=== PATIENT | female | born 1995 | race Caucasian/White ===

== ENCOUNTER 2018-09-17 11:45 | Outpatient (CLI) | payer MEDICAID, SELFPAY ==
[2018-09-17 12:19] VITALS: BMI 40.7
[2018-09-17 12:29] LABS: Hematocrit 31.1 % (37-47); Hemoglobin 10.3 g/dl (12.0-15.0); Mean Corp Hgb Conc 33.1 g/gl (32-36); Mean Corpuscular Hgb 26.1 pg (27.0-32.0); Mean Corpuscular Volume 78.7 fL (81-99); Mean Platelet Vol. 9.1 fl (6.2-12.0); Platelet Count 222 K/mm3 (150-450); RBC Distribution Width CV 14.4 % (11.6-14.6); RBC Distribution Width SD 41.4 fl (35.1-43.9); Red Blood Count 3.95 M/mm3 (4.2-5.4); White Blood Count 8.6 K/mm3 (4.4-11.0)
[2018-09-17 12:32] LABS: Scan Indicated on CBC? Y/N NO
[2018-09-17 12:41] LABS: AST(SGOT) 12 U/L (15-37); Alanine Aminotransfer ALT/SGPT 13 U/L (13-56); Creatinine, Serum 0.48 mg/dL (0.55-1.02); EST Glomerular Filtration Rate 171 mL/min (>60); Est Glom Filt Rate - Afr Amer 207 mL/min (>60); Estimated Creatinine Clearance 158.75 ml/min; Uric Acid 4.6 mg/dL (2.6-6.0)
[2018-09-17 13:00] LABS: Partial Thromboplast Time 27.6 Seconds (24.1-36.2); Prothrombin Time (Protime)PT. 13.2 SECONDS (11.7-14.9)
[2018-09-17 13:09] LABS: Protein, Urine (Random) 30.4 mg/dL (<11.9); Protein:Creat Ratio 129 mg/g CRE (0-200)
--- NOTE | 2018-09-17 13:09 | OB.TRI.HP_ITS ---
- Problem List (1) Headache Status: Acute History of Present Illness Date of Service: 09/17/18 Was patient seen by the physician?: Yes Reason For Visit: R/O PIH Date of Service: 09/17/18 Final CINDI: 10/12/18 Final CINDI Source: US <20 weeks Gestational age: 36 Weeks and 3 Days History of Present Illness: Is a 23-year-old 001 at 36 weeks gestation who presents from the office with a mild headache. She said the headache started yesterday. She says the headache is bilateral and posterior, and mild. She rates it a 2-3 out of 10. She denies a history of chronic headaches. She denies vision changes, right upper quadrant pain, epigastric pain, nausea, vomiting. She came into the office today and her blood pressure was 120/83. Denies contractions, bleeding, loss of fluid. Good movement. Allergies Sulfa (Sulfonamide Antibiotics) Allergy (Intermediate, Verified 10/23/16 07:36) Hives strawberry Allergy (Verified 10/22/16 14:45) Hives - Pertinent Past Medical History Medical History: Past Medical History (Last Updated 09/17/18 @ 20:33 by Darline Avila DO) Anemia History of depression Laboratory Studies: Laboratory Tests 09/17/18 09/17/18 09/17/18 Range/Units 12:10 12:10 12:10 WBC 8.6 (4.4-11.0) K/mm3 RBC 3.95 L (4.2-5.4) M/mm3 Hgb 10.3 L (12.0-15.0) g/dl Hct 31.1 L (37-47) % MCV 78.7 L (81-99) fL MCH 26.1 L (27.0-32.0) pg MCHC 33.1 (32-36) g/gl RDW 14.4 (11.6-14.6) % RDW Differential 41.4 (35.1-43.9) fl Plt Count 222 (150-450) K/mm3 MPV 9.1 (6.2-12.0) fl PT 13.2 (11.7-14.9) SECONDS INR 1.0 APTT 27.6 (24.1-36.2) Seconds Creatinine 0.48 L (0.55-1.02) mg/dL Estim Creat Clear Calc 158.75 ml/min Est GFR (MDRD) Af Amer 207 (>60) mL/min Est GFR (MDRD) Non-Af 171 (>60) mL/min Uric Acid 4.6 (2.6-6.0) mg/dL AST 12 L (15-37) U/L ALT 13 (13-56) U/L Review of Systems Eyes: Denies: Blurred vision, Double vision HEENT: Reports: Head Aches Gastrointestinal: Denies: Abdominal Pain, Nausea, Vomiting Neurological: Denies: Blurred vision, Double vision Physical Exam General: No apparent distress, Well developed, Well nourished HEENT: Atraumatic Lungs: - - No increased resp effort Abdomen: Soft, Non Tender, Gravid, - - No RUQ tenderness or epigastric te nderness Extremities:: No edema Neurological: Deep Tendon Reflexes 2+/4 and Symmetrical, Neuro grossly intact NST - FHR Rate Baby A FHR Category:: Category I Uterine Activity:: No regular ctx's Impression/Plan 36 wk gestation with mild NORMAN - Pre- labs WNL, p/c ratio normal - Had 1 mild range SBP 141, otherwise BP's normotensive - To collect 24 hr urine protein - Has appointment in 2 days. To keep that appointment for recheck of BP - Discussed pre-eclampsia signs and symptoms. Precautions given or when to call and come back in
--- OUTSIDE RECORDS SUMMARY | 2018-11-12 20:46 | XMS RPT_ITS ---
:1995 Author Organization [place] Support Name Relationship Address Phone ELIA MALLORY Unavailable [address] + [place] [address] MCDONALDS Unavailable [address] + [place] [address] CATARINA PIZANO Unavailable [address] + [place] [address] ELIA MALLORY Unavailable [address] + [place] [address] MCDONALDS Unavailable [address] + [place] [address] NICOLE PIZANOSON Unavailable [address] + [place] [address] ELIA MALLORY Unavailable [address] + [place] [address] MCDONALDS Unavailable [address] + [place] [address] CATARINA PIZANO Unavailable [address] + [place] [address] ELIA MALLORY Unavailable [address] + [place] [address] MCDONALDS Unavailable [address] + [place] [address] NICOLE PIZANOSON Unavailable [address] + [place] [address] MEDARDO PIZANO Unavailable Unavailable + MEDARDO PIZANO Unavailable Unavailable + TRI PIZANO Unavailable [address] + [place] [address] HARINDER, MEDARDO Unavailable Unavailable + HARINDER, MEDARDO Unavailable Unavailable + HARINDER, OLYVER Unavailable [address] + [place] [address] HARINDER, MEDARDO Unavailable Unavailable + HARINDER, MEDARDO Unavailable Unavailable + HARINDER, OLYVER Unavailable [address] + [place] [address] HARINDER, MEDARDO Unavailable Unavailable + HARINDER, MEDARDO Unavailable Unavailable + HARINDER, OLYVER Unavailable [address] + [place] [address] Care Team Providers Name Role Phone SHERYL COHN, CESAR Hwang Attending Unavailable PHYSICIAN, NONE Primary Care Unavailable DAVID COHN, FERMÍN Prajapati Attending Unavailable PHYSICIAN, NONE Primary Care Unavailable ROSI FIGUEROA, DR. NOELLE Sanderson Attending Unavailable PHYSICIAN, NONE Primary Care Unavailable LEANNE SEGOVIA MD Attending Unavailable PHYSICIAN, NONE Primary Care Unavailable CHRISTEN MANCILLA Attending Unavailable ARAMIS SALOMON Attending Unavailable LAURENT, KARMON Referring Unavailable LAURENT, KARMON Referring Unavailable LAURENT, KARMON Attending Unavailable LAURENT, KARMON Referring Unavailable TROY SULTANA Attending Unavailable LAURENT, KARMON Referring Unavailable LEYLA STAPLESTHIA (CNM) Attending Unavailable LAURENT, KARMON Referring Unavailable DENNIS SHER (EDUCATION TECHNICIAN) Attending Unavailable LAURENT, KARMON Referring Unavailable LEYLA STAPLESTHIA (CNM) Attending Unavailable CASSIE EDGE Attending Unavailable JOSE ARMANDO KRAMER (CNM) Attending Unavailable WISWELL, ROSALINDA Referring Unavailable GABRIEL KRAMERSSICA (CNM) Attending Unavailable WILLIAMS, JOSE ARMANDO (CNM) Attending Unavailable KRAMER, JOSE ARMANDO (CNM) Attending Unavailable WISWELL, ROSALINDA Attending Unavailable WILLIAMS, JOSE RAMANDO (CNM) Attending Unavailable WISWELL, ROSALINDA Attending Unavailable Brittany Barajas Attending Unavailable Brittany Barajas Referring Unavailable Gabriel Kramerssica Attending Unavailable Williams, Jose Armando Referring Unavailable Nely Emmanuel Primary Care Unavailable Teodora Kramerica Attending Unavailable Williams, Jose Armando Referring Unavailable Wiswell, Rosalinda Attending Unavailable Wiswell, Rosalinda Referring Unavailable PROBLEMS PROBLEMS DATE TYPE CONDITION / CODE ATTENDING STATUS SOURCE 09/24/2018 Unknown O26.893 - Other Jose Armando Kramer Active [facility] conditions, third Repository trimester / O26.893(ICD-10) 08/30/2018 Active 31 weeks gestation NA Active [facility] of / [facility] Z3A.31(ICD-10) Repository 04/03/2018 Active Encounter for NA Active [facility] supervision of [facility] [place] other normal Repository , unspecified trimester / Z34.80(ICD-10) 04/03/2018 Active Encounter for NA Active [facility] screening for Repository nuchal translucency / Z36.82(ICD-10) 03/27/2018 Active Unknown / NA Active [facility] UNK(Unknown) [facility] [place] Repository PROCEDURES PROCEDURES No Procedure Records FoundRESULTS RESULTS PROTEIN, URINE 24HR Collected: 10/06/2018 Status: F Source: [place] 6:20 PM [facility] REPOSITORY TYPE CODE TESTS RESULT OUT OF RANGE REFERENCE UNITS LAB L501.1850 24.0 HOURS Normal UR COLLECT 24.0 TIME LAB L501.1875 mL Normal UR TOTAL 1500 VOLUME LAB L501.1900 <11.9 mg/dL High URINE PROTEIN 19.3 LAB L501.1925 <150 MG/24HR mg/24HR High 24hr UR 289.5 PROTEIN Performed By: #### L500.9000 #### [facility] [address] [place], [place], [address] PROTEIN+CREATININE Collected: Status: F Source: [place] RATIO,URINE 10/06/2018 6:10 PM [facility] REPOSITORY TYPE CODE TESTS RESULT OUT OF RANGE REFERENCE UNITS LAB L501.1200 NO RANGE EST. mg/dL Normal UR CREAT 147.00 LAB L501.1930 <11.9 mg/dL High 25.0 PROTEIN,UR.R AN. LAB L501.1940 0-200 mg/g CRE Normal PROT:CRE 170 RATIO Performed By: #### L501.0900 #### [facility] [address] [place], [address] SERUM CREATININE AND Collected: 10/06/2018 Status: F Source: [place] GFR 5:25 PM [facility] REPOSITORY TYPE CODE TESTS RESULT OUT OF RANGE REFERENCE UNITS LAB L501.1100 0.55-1.02 mg/dL Low 0.54 CREAT,SERUM Result Comment: The validity of the calculated GFR AND GFRAA in patients over 70 years has not been determined. Clinical correlation is essential. LAB L501.1110 >60 mL/min Normal EST GFR 150 Result Comment: Non- GFR Calc LAB L501.1115 >60 mL/min Normal EST GFR - AA 182 Result Comment: GFR Calc Performed By: #### L501.1105, L501.1400, L501.4100, L501.4405 #### [facility] [address] [place], [address] URIC ACID Collected: 10/06/2018 Status: F Source: [place] 5:25 PM [facility] REPOSITORY TYPE CODE TESTS RESULT OUT OF RANGE REFERENCE UNITS LAB L501.1400 2.6-6.0 mg/dL Normal URIC 4.0 Result Comment: The drugs N-Acetylcysteine and Metamizole may falsely depress this assay. Performed By: #### L501.1105, L501.1400, L501.4100, L501.4405 #### [facility] [address] [place], [place], [id number] AST(SGOT) Collected: 10/06/2018 Status: F Source: [place] 5:25 PM [facility] REPOSITORY TYPE CODE TESTS RESULT OUT OF RANGE REFERENCE UNITS LAB L501.4100 15-37 U/L Low AST 8 Performed By: #### L501.1105, L501.1400, L501.4100, L501.4405 #### [facility] [address] [place], [address] ALANINE AMINOTRANSFERAS Collected: 10/06/2018 Status: F Source: [place] (SGPT) 5:25 PM [facility] REPOSITORY TYPE CODE TESTS RESULT OUT OF RANGE REFERENCE UNITS LAB L501.4405 13-56 U/L Low ALT 11 Performed By: #### L501.1105, L501.1400, L501.4100, L501.4405 #### [facility] [address] [place], [place], [address] PROTHROMBIN TIME W/INR Collected: 10/06/2018 Status: F Source: [place] 5:25 PM [facility] REPOSITORY TYPE CODE TESTS RESULT OUT OF RANGE REFERENCE UNITS LAB L300.4150 11.7-14.9 SECONDS Normal PROTIME 13.0 LAB L300.4200 Normal INR 1.0 Performed By: #### L300.3900, L300.4310 #### [facility] [address] [place], [address] PARTIAL THROMBOPLAST Collected: 10/06/2018 Status: F Source: [place] TIME 5:25 PM [facility] REPOSITORY TYPE CODE TESTS RESULT OUT OF RANGE REFERENCE UNITS LAB L300.4310 24.1-36.2 Seconds Normal PTT 26.4 Performed By: #### L300.3900, L300.4310 #### [facility] [address] [place], [address] CBC-COMPLETE BLOOD CNT Collected: 10/06/2018 Status: F Source: [place] NO DIFF 5:25 PM [facility] REPOSITORY TYPE CODE TESTS RESULT OUT OF RANGE REFERENCE UNITS LAB L100.1000 4.4-11.0 K/mm3 Normal WBC 11.0 LAB L100.1200 4.2-5.4 M/mm3 Low RBC 3.86 LAB L100.1300 12.0-15.0 g/dl Low HGB 10.4 LAB L100.1400 37-47 % Low HCT 30.8 LAB L100.1500 81-99 fL Low MCV 79.8 LAB L100.1600 27.0-32.0 pg Low MCH 26.9 LAB L100.1700 32-36 g/gl Normal MCHC 33.8 LAB L100.1810 11.6-14.6 % Normal RDW CV 14.5 LAB L100.1820 35.1-43.9 fl Normal RDW SD 40.0 LAB L100.1900 150-450 K/mm3 Normal PLT 259 LAB L100.2000 6.2-12.0 fl Normal MPV 9.6 Performed By: #### L100.0500 #### [facility] [address] [place], [address] PROGRESS Observed: 09/29/2018 Status: COMPLETED Source: [place] 5:36 PM [facility] REPOSITORY HNO ID: [id number] Author: Loan Sifuentes) Gamal Service: (none) Author Type: Taproom Attendant Type: Progress Notes Filed: 09/29/2018 5:37 PM Note Text: CM - S: Dex Mallory presents for a routine OB visit at 38w1d. She denies LOF, VB, DFM or cramping/contractions. Patient reports no recent headaches now that she is taking Tylenol regularly; denies any scotoma, dizziness, RUQ pain. O: See flow sheet Gen: A+O x 3, NAD Abdomen: NT x 4 quadrants, S=D Extremities: No edema in LE SVE = 3/60/-3, moderately soft and midposition cervix A/P: 38w1d IUP. Normal . RTO 1 Weeks for follow up. Call with LOF, VB, DFM or cramping/contractions. 1. 38 weeks gestation of -[facility] teaching done -Labor precautions reviewed - URINE OB DIP B/O Loan Staples APRN.CNM CBC-COMPLETE BLOOD CNT Collected: 09/25/2018 Status: F Source: [place] NO DIFF 10:45 AM [facility] REPOSITORY TYPE CODE TESTS RESULT OUT OF RANGE REFERENCE UNITS LAB L100.1000 4.4-11.0 K/mm3 Normal WBC 6.8 LAB L100.1200 4.2-5.4 M/mm3 Low RBC 3.86 LAB L100.1300 12.0-15.0 g/dl Low HGB 10.3 LAB L100.1400 37-47 % Low HCT 30.4 LAB L100.1500 81-99 fL Low MCV 78.8 LAB L100.1600 27.0-32.0 pg Low MCH 26.7 LAB L100.1700 32-36 g/gl Normal MCHC 33.9 LAB L100.1810 11.6-14.6 % High RDW CV 14.7 LAB L100.1820 35.1-43.9 fl Normal RDW SD 41.4 LAB L100.1900 150-450 K/mm3 Normal PLT 218 LAB L100.2000 6.2-12.0 fl Normal MPV 9.3 Performed By: #### L100.0500 #### [facility] [address] [place], [address] PROTHROMBIN TIME W/INR Collected: 09/25/2018 Status: F Source: [place] 10:45 AM [facility] REPOSITORY TYPE CODE TESTS RESULT OUT OF RANGE REFERENCE UNITS LAB L300.4150 11.7-14.9 SECONDS Normal PROTIME 13.3 LAB L300.4200 Normal INR 1.0 Performed By: #### L300.3900, L300.4310 #### [facility] [address] [place], [address] PARTIAL THROMBOPLAST Collected: 09/25/2018 Status: F Source: [place] TIME 10:45 AM [facility] REPOSITORY TYPE CODE TESTS RESULT OUT OF RANGE REFERENCE UNITS LAB L300.4310 24.1-36.2 Seconds Normal PTT 26.9 Performed By: #### L300.3900, L300.4310 #### [facility] [address] [place], [address] SERUM CREATININE AND Collected: 09/25/2018 Status: F Source: [place] GFR 10:45 AM [facility] REPOSITORY TYPE CODE TESTS RESULT OUT OF RANGE REFERENCE UNITS LAB L501.1100 0.55-1.02 mg/dL Normal 0.61 CREAT,SERUM Result Comment: The validity of the calculated GFR AND GFRAA in patients over 70 years has not been determined. Clinical correlation is essential. LAB L501.1110 >60 mL/min Normal EST GFR 129 Result Comment: Non- GFR Calc LAB L501.1115 >60 mL/min Normal EST GFR - AA 156 Result Comment: GFR Calc LAB L501.1255 ml/min Normal Estimated CRCL 124.92 Performed By: #### L501.1105, L501.1400, L501.4100, L501.4405 #### [facility] [address] [place], [address] URIC ACID Collected: 09/25/2018 Status: F Source: [place] 10:45 AM [facility] REPOSITORY TYPE CODE TESTS RESULT OUT OF RANGE REFERENCE UNITS LAB L501.1400 2.6-6.0 mg/dL Normal URIC 4.4 Result Comment: The drugs N-Acetylcysteine and Metamizole may falsely depress this assay. Performed By: #### L501.1105, L501.1400, L501.4100, L501.4405 #### [facility] [address] [place], [address] AST(SGOT) Collected: 09/25/2018 Status: F Source: [place] 10:45 AM [facility] REPOSITORY TYPE CODE TESTS RESULT OUT OF RANGE REFERENCE UNITS LAB L501.4100 15-37 U/L Low AST 11 Performed By: #### L501.1105, L501.1400, L501.4100, L501.4405 #### [facility] [address] [place], [address] ALANINE AMINOTRANSFERAS Collected: 09/25/2018 Status: F Source: [place] (SGPT) 10:45 AM [facility] REPOSITORY TYPE CODE TESTS RESULT OUT OF RANGE REFERENCE UNITS LAB L501.4405 13-56 U/L Low ALT 11 Performed By: #### L501.1105, L501.1400, L501.4100, L501.4405 #### [facility] [address] [place], [address] PROTEIN+CREATININE Collected: Status: F Source: [place] RATIO,URINE 09/25/2018 10:45 AM [facility] REPOSITORY TYPE CODE TESTS RESULT OUT OF RANGE REFERENCE UNITS LAB L501.1200 NO RANGE EST. mg/dL Normal UR CREAT 113.00 LAB L501.1930 <11.9 mg/dL High 20.7 PROTEIN,UR.R AN. LAB L501.1940 0-200 mg/g CRE Normal PROT:CRE 183 RATIO Performed By: #### L501.0900 #### [facility] [address] [place], [address] PROGRESS Observed: 09/19/2018 Status: COMPLETED Source: [place] 2:31 PM [facility] REPOSITORY HNO ID: [id number] Author: Jose Armando Kramer Service: (none) Author Type: Taproom Attendant Type: Progress Notes Filed: 09/23/2018 5:58 PM Note Text: NST SUMMARY PROVIDER ASSESSMENT AND INTERPRETATION Dex Mallory is a 23 year old female, , who is at 36w5d with an CINDI of 10/12/2018, by Last Menstrual Period dating method. Indications for NST: Decreased Movement Baseline: 135 Variability: Moderate Accelerations: Present 15 X 15 Decelerations: Variable Contractions: TOCO: Irregular Interpretation: Reactive SIGNATURE: Jose Armando Kramer APRN.CNM PROTEIN, URINE 24HR Collected: 09/18/2018 Status: F Source: [place] 12:30 PM [facility] REPOSITORY Order Comment: START 09-17-180 END 09-18-18 1230 TYPE CODE TESTS RESULT OUT OF RANGE REFERENCE UNITS LAB L501.1850 24.0 HOURS Normal UR COLLECT 24.0 TIME LAB L501.1875 mL Normal UR TOTAL 800 VOLUME LAB L501.1900 <11.9 mg/dL High URINE PROTEIN 31.6 LAB L501.1925 <150 MG/24HR mg/24HR High 24hr UR 252.8 PROTEIN Performed By: #### L500.9000, L502.000 #### [facility] [address] [place], [place], [address] 24 HR URINE CREATININE Collected: 09/18/2018 Status: F Source: [place] 12:30 PM [facility] REPOSITORY Order Comment: START 09-17-180 END 09-18-18 1230 TYPE CODE TESTS RESULT OUT OF RANGE REFERENCE UNITS LAB L502.0100 24.0 HOURS Normal UR COLLECT 24.0 TIME LAB L502.0200 L Normal UR TOTAL 0.80 VOLUME LAB L502.0300 NO RANGE EST. mg/dL Normal URINE CREAT 209.00 LAB L502.0400 0.70-1.90 g/24 HR Normal UR.CREAT/24hr 1.67 Performed By: #### L500.9000, L502.000 #### [facility] [address] [place], [place], [address] GROUP B STREP PCR Collected: 09/17/2018 Status: F Source: [place] 11:33 PM [facility] [place] REPOSITORY TYPE CODE TESTS RESULT OUT OF REFERENCE UNITS RANGE LAB GBPCRT Negative for GROUP Group B B STREP PCR Streptococcus by PCR. Performed By: #### GBPCR #### [facility] [address] [place], [place] [address] PROTEIN+CREATININE Collected: Status: F Source: [place] RATIO,URINE 09/17/2018 12:30 PM [facility] REPOSITORY TYPE CODE TESTS RESULT OUT OF RANGE REFERENCE UNITS LAB L501.1200 NO RANGE EST. mg/dL Normal UR CREAT 236.00 LAB L501.1930 <11.9 mg/dL High 30.4 PROTEIN,UR.R AN. LAB L501.1940 0-200 mg/g CRE Normal PROT:CRE 129 RATIO Performed By: #### L501.0900 #### [facility] [address] [place], [address] CBC-COMPLETE BLOOD CNT Collected: 09/17/2018 Status: F Source: [place] NO DIFF 12:10 PM [facility] REPOSITORY TYPE CODE TESTS RESULT OUT OF RANGE REFERENCE UNITS LAB L100.1000 4.4-11.0 K/mm3 Normal WBC 8.6 LAB L100.1200 4.2-5.4 M/mm3 Low RBC 3.95 LAB L100.1300 12.0-15.0 g/dl Low HGB 10.3 LAB L100.1400 37-47 % Low HCT 31.1 LAB L100.1500 81-99 fL Low MCV 78.7 LAB L100.1600 27.0-32.0 pg Low MCH 26.1 LAB L100.1700 32-36 g/gl Normal MCHC 33.1 LAB L100.1810 11.6-14.6 % Normal RDW CV 14.4 LAB L100.1820 35.1-43.9 fl Normal RDW SD 41.4 LAB L100.1900 150-450 K/mm3 Normal PLT 222 LAB L100.2000 6.2-12.0 fl Normal MPV 9.1 Performed By: #### L100.0500 #### [facility] [address] [place], [place], [address] SERUM CREATININE AND Collected: 09/17/2018 Status: F Source: [place] GFR 12:10 PM [facility] REPOSITORY TYPE CODE TESTS RESULT OUT OF RANGE REFERENCE UNITS LAB L501.1100 0.55-1.02 mg/dL Low 0.48 CREAT,SERUM Result Comment: The validity of the calculated GFR AND GFRAA in patients over 70 years has not been determined. Clinical correlation is essential. LAB L501.1110 >60 mL/min Normal EST GFR 171 Result Comment: Non- GFR Calc LAB L501.1115 >60 mL/min Normal EST GFR - AA 207 Result Comment: GFR Calc LAB L501.1255 ml/min Normal Estimated CRCL 158.75 Performed By: #### L501.1105, L501.1400, L501.4100, L501.4405, L300.3900, L300.4310 #### [facility] [address] [place], [place], [address] URIC ACID Collected: 09/17/2018 Status: F Source: [place] 12:10 PM [facility] REPOSITORY TYPE CODE TESTS RESULT OUT OF RANGE REFERENCE UNITS LAB L501.1400 2.6-6.0 mg/dL Normal URIC 4.6 Result Comment: The drugs N-Acetylcysteine and Metamizole may falsely depress this assay. Performed By: #### L501.1105, L501.1400, L501.4100, L501.4405, L300.3900, L300.4310 #### [facility] [address] [place], [place], [id number] AST(SGOT) Collected: 09/17/2018 Status: F Source: [place] 12:10 PM [facility] REPOSITORY TYPE CODE TESTS RESULT OUT OF RANGE REFERENCE UNITS LAB L501.4100 15-37 U/L Low AST 12 Performed By: #### L501.1105, L501.1400, L501.4100, L501.4405, L300.3900, L300.4310 #### [facility] [address] [place], [place], [id number] ALANINE AMINOTRANSFERAS Collected: 09/17/2018 Status: F Source: [place] (SGPT) 12:10 PM [facility] REPOSITORY TYPE CODE TESTS RESULT OUT OF RANGE REFERENCE UNITS LAB L501.4405 13-56 U/L Normal ALT 13 Performed By: #### L501.1105, L501.1400, L501.4100, L501.4405, L300.3900, L300.4310 #### [facility] [address] [place], [address] PROTHROMBIN TIME W/INR Collected: 09/17/2018 Status: F Source: [place] 12:10 PM [facility] REPOSITORY TYPE CODE TESTS RESULT OUT OF RANGE REFERENCE UNITS LAB L300.4150 11.7-14.9 SECONDS Normal PROTIME 13.2 LAB L300.4200 Normal INR 1.0 Performed By: #### L501.1105, L501.1400, L501.4100, L501.4405, L300.3900, L300.4310 #### [facility] [address] [place], [place], [address] PARTIAL THROMBOPLAST Collected: 09/17/2018 Status: F Source: [place] TIME 12:10 PM [facility] REPOSITORY TYPE CODE TESTS RESULT OUT OF RANGE REFERENCE UNITS LAB L300.4310 24.1-36.2 Seconds Normal PTT 27.6 Performed By: #### L501.1105, L501.1400, L501.4100, L501.4405, L300.3900, L300.4310 #### [facility] [address] [place], [place], [address] Observed: 09/17/2018 Status: F Source: [place] URINE CULTURE 11:30 AM [facility] REPOSITORY Sp. Request/Comment: - Specimen received in preservative Culture Result - 10,000 - <50,000 CFU/ml Normal urogenital renata Performed By: #### URCUL #### [facility] [address] [place], [place] [address] CBC Collected: 08/30/2018 Status: F Source: [place] 11:09 AM [facility] REPOSITORY TYPE CODE TESTS RESULT OUT OF REFERENCE UNITS RANGE LAB WBC 3.70-11.00 k/uL WBC 10.39 LAB RBC 3.90-5.20 m/uL RBC 4.03 LAB HGB 11.5-15.5 g/dL Low Hemoglobin 10.6 LAB HCT 36.0-46.0 % Low Hematocrit 34.4 LAB MCV 80.0-100.0 fL MCV 85.4 LAB MCH 26.0-34.0 pG MCH 26.3 LAB MCHC 30.5-36.0 g/dL MCHC 30.8 LAB RDWCV 11.5-15.0 % RDW-CV 14.1 LAB PLTCT 150-400 k/uL Platelet Count 281 LAB MPV 9.0-12.7 fL MPV 9.8 LAB ABSNUC <0.01 k/uL Absolute nRBC <0.01 Performed By: #### CBC #### [facility] Your Office Agent [address] [place], [place] [address] 50G, 1HR GEST. Collected: 08/30/2018 Status: F Source: [place] GSCRN 11:08 AM [facility] REPOSITORY TYPE CODE TESTS RESULT OUT OF REFERENCE UNITS RANGE LAB GLUP 74-134 mg/dL Glucose 108 Screen, Preg Result Comment: [place] [employer] (Jones/Coustan) guidelines state a gestational diabetes mellitus positive screen is made, in women not previously diagnosed with overt diabetes, when the 1 hr plasma glucose level is equal to or above 140 mg/dL. The [facility] Supervisor [employer] and Women's Health Aubrey recommends a 135 mg/dL cutoff. Performed By: #### GLTGST #### [facility] Your Office [employer] [address], [place] [address] PROGRESS Observed: 07/04/2018 Status: COMPLETED Source: [place] 5:12 PM [facility] REPOSITORY HNO ID: [id number] Author: Loan Staples Service: (none) Author Type: Taproom Attendant Type: Progress Notes Filed: 07/04/2018 5:12 PM Note Text: CM - S: Dex Mallory presents for urgent add-on OB visit at 25w5d reporting worsening Depression symptoms. She denies LOF, VB, DFM or cramping/contractions. Patient scored 18 on depression screening today. She denies SI/HI. Patient has been very tearful, reports feeling isolated [place]. Patient's fiancee works a lot and other family members do not have car or access to working transportation. Patient has been having angry outbursts where anything sets me off. Patient had scheduled appointment with [facility] back in March to initiate counseling but had to cancel that appt as she had no transportation. Patient previously on Citalopram x 4 months, no efficacy noted with that medication. O: See flow sheet Gen: A+O x 3, Tearful at Times Abd: NT x 4 quadrants, S=D, Moderate [place] Extremities: No edema A/P: 25w5d IUP. Chronic Depression during . RTO 2 Weeks for follow up. Call with LOF, VB, DFM or cramping/contractions. 1. 25 weeks gestation of -[facility] Precautions and [facility] teaching reviewed - URINE OB DIP B/O 2. Chronic Depression -Patient desires to start on antidepressant at this time - Rx Zoloft 25mg PO daily x 2 weeks with plan to increase medication to Zoloft 50mg PO daily. -Patient will call and schedule appt [facility] - patient's mother very supportive and will make sure she gets to appointment -Encourage Deep Breathing, Walking, Carving personal time for herself if only 30 minutes daily. Re-energizing activities discussed. Encourage setting small achievable goals (i.e. Getting out of bed, Getting Dressed, Feeding Toddler, etc.). -RTC for next scheduled visit on 07/25/18. Anticipate sending refill for Zoloft at that visit. Loan Staples APRN.CNM PROGRESS Observed: 05/23/2018 Status: COMPLETED Source: [place] 4:08 PM [facility] [place] REPOSITORY O ID: [id number] Author: Troy Sultana Service: (none) Author Type: Physician Type: Progress Notes Filed: 05/23/2018 4:08 PM Note Text: A lala? fetus in utero with symmetric measurements Adequate growth (AGA). Estimated Date of Delivery: 10/12/18 EGA = 19w5d The anatomy appears normal. There are no evident malformations and /or effusions. No genetic markers are noted. The amniotic fluid volume is within normal limits. The sensitivity of ultrasound in the detection of malformations overall is approximately 35%. RECOMMENDATIONS: - Follow up ultrasound as clinically indicated PROGRESS Observed: 05/23/2018 Status: COMPLETED Source: [place] 1:30 PM [facility] REPOSITORY HNO ID: [id number] Author: Loan Staples Service: (none) Author Type: Taproom Attendant Type: Progress Notes Filed: 05/23/2018 1:31 PM Note Text: CM - S: Dex Mallory presents with for a routine OB visit at 19w5d. She denies LOF, VB, DFM or cramping/contractions. 2nd trimester u/s done today - preliminary results WNL. Patient reports plan for NCB again with this . O: See flow sheet Gen: A+O x 3, NAD Abd: NT x 4 quadrants, S=D Extremities: No edema in LE A/P: 19w5d IUP. Obesity (BMI>40). RTO Weeks for follow up. Call with LOF, VB, DFM or cramping/contractions. 1. Encounter for supervision of other normal in second trimester -[facility] teaching and PTL precautions reviewed - URINE OB DIP B/O 2. 19 weeks gestation of -- URINE OB DIP B/O [employer] APRN.CNM PROGRESS Observed: 04/04/2018 Status: COMPLETED Source: [place] 11:50 AM [facility] REPOSITORY HNO ID: [id number] Author: Aramis Salomon Service: (none) Author Type: Physician Type: Progress Notes Filed: 04/04/2018 11:50 AM Note Text: Please see ultrasound report for details of this visit. Aramis Salomon M.D. TOXICOLOGY SCREEN,UR Collected: 04/03/2018 Status: F Source: [place] 1:10 PM [facility] REPOSITORY TYPE CODE TESTS RESULT OUT OF REFERENCE UNITS RANGE LAB UPCP2 Negative Negative Phencyclidin e, Urine Result Comment: Cutoff threshold at 25 ng/mL. LAB UBENZ2 Negative Benzodiazepines, Ur Negative Result Comment: Cutoff threshold at 200 ng/mL. LAB UCOC2 Negative Cocaine, Negative Urine Result Comment: Cutoff threshold at 300 ng/mL. LAB UAMPH2 Negative Amphetamines, Urine Negative Result Comment: Cutoff threshold at 1000 ng/mL. LAB UTHC2 Negative Cannabinoids, Abnormal Urine Preliminary Alert positive. Result Comment: Cutoff threshold at 50 ng/mL. LAB UOPI2 Negative Opiates, Negative Urine Result Comment: Cutoff threshold at 300 ng/mL. LAB UBARB2 Negative Barbiturates, Urine Negative Result Comment: Cutoff threshold at 200 ng/mL. LAB UETOH <11 mg/dL <11 Ethanol, Urine LAB UOXYC Negative Oxycodone, Negative Urine Result Comment: Cutoff threshold at 100 ng/mL. Comment: Immunoassay screen only. Cross reactivity with other substances can occur with immunoassay screening. Detection of any drug(s) in this urine toxicology panel is presumptive only. These tests are for med ical purposes only and should not be used for compliance monitoring, legal, or forensic use. Samples should be within normal physiological conditions (e.g. pH). This assay does not include adulteration/specimen validity testing. In clinical settings, confirmatory testing is at the practitioner's discretion [1]. If clinically indicated, confirmation by high specificity, quantitative methodology, which includes adulteration/spec imen validity testing, may be requested on the same specimen through Client Services ([phone]) if contacted within 48 hours of initial testing. [1]Substance Abuse and Mental Health Services Administration (2012). Clinical Drug Testing in Primary Care Technical Assistance Publication Series 32. Department of Health and Human Services, [place], p.10. These tests were developed and their performance characteristics determined by [facility] ([facility]). They have not been cleared or a pproved by the FDA. [facility] is regulated under CLIA as qualified to perform high complexity testing. These tests are used for clinical purposes. They should not be regarded as investigational or for research. Performed By: #### UTOX2 #### [facility] [address] [id number] Observed: 04/03/2018 Status: F Source: [place] URINE CULTURE 1:10 PM [facility] REPOSITORY Sp. Request/Comment: - Best Practice Alert: To ensure optimal transport conditions and accurate culture results transfer urine specimens to freedman top C and S preservative tube. Culture Result - 50,000 - <100,000 CFU/ml Normal urogenital renata Performed By: #### URCUL #### [facility] Your Office Agent [address] [place], [place] [address] 50G, 1HR GEST. Collected: 04/03/2018 Status: F [facility] REPOSITORY TYPE CODE TESTS RESULT OUT OF REFERENCE UNITS RANGE LAB GLUP 74-134 mg/dL Glucose 115 Screen, Preg Result Comment: [place] [employer]nec[employer] (Jones/Ericstan) guidelines state a gestational diabetes mellitus positive screen is made, in women not previously diagnosed with overt diabetes, when the 1 hr plasma glucose level is equal to or above 140 mg/dL. The [facility] Supervisor [employer] [facility] [place] recommends a 135 mg/dL cutoff. Performed By: #### GLTGST #### [facility] [address], [place] [address] CBC Collected: 04/03/2018 Status: F Source: [place] 11:56 AM [facility] REPOSITORY TYPE CODE TESTS RESULT OUT OF REFERENCE UNITS RANGE LAB WBC 3.70-11.00 k/uL WBC 9.78 LAB RBC 3.90-5.20 m/uL RBC 4.75 LAB HGB 11.5-15.5 g/dL Hemoglobin 12.7 LAB HCT 36.0-46.0 % Hematocrit 38.5 LAB MCV 80.0-100.0 fL MCV 81.1 LAB MCH 26.0-34.0 pG MCH 26.7 LAB MCHC 30.5-36.0 g/dL MCHC 33.0 LAB RDWCV 11.5-15.0 % RDW-CV 13.8 LAB PLTCT 150-400 k/uL Platelet Count 330 LAB MPV 9.0-12.7 fL MPV 10.5 LAB ABSNUC <0.01 k/uL Absolute nRBC <0.01 Performed By: #### CBC, SYPHGX, RUBIGG, HBSAG, HIV12C, SEQL1 #### [facility] Your Office Agent [address], [place] [address] SYPHILIS IGG WITH Collected: 04/03/2018 Status: F Source: [facility] 11:56 AM [facility] REPOSITORY TYPE CODE TESTS RESULT OUT OF REFERENCE UNITS RANGE LAB SYPHQL Nonreactive Syphilis IgG, Nonreactive Qual Result Comment: In conjunction with this result, the immune status of the patient should be evaluated based on their clinical status, related risk factors, and other diagnostic test results. LAB SYPHLG AI Syphilis IgG <0.2 Result Comment: Antibody index is interpreted as follows: Non reactive SPECIMENS <=0.8 Weak reactive SPECIMENS 0.9 to 5.9 Reactive SPECIMENS >=6.0 Performed By: #### CBC, SYPHGX, RUBIGG, HBSAG, HIV12C, SEQL1 #### [place] [phone] RUBELLA IGG ANTIBODY Collected: 04/03/2018 Status: F Source: [place] 11:56 [facility] REPOSITORY TYPE CODE TESTS RESULT OUT OF RANGE REFERENCE UNITS LAB RUBGQL Negative Abnormal Rubella IgG Positive Alert Ab, Qual Result Comment: Sample is considered positive for IgG antibodies to rubella virus. A positive result indicates previous exposure to Rubella virus or vaccination. LAB RUBQNT Index Value Rubella IgG Ab 1.45 Result Comment: Index values are interpreted as follows: Negative specimens <0.90 Equivocol specimens 0.90 to 0.99 Positive specimens >0.99 The magnitude of the measured result is not indicative of the amount of antibody present. Performed By: #### CBC, SYPHGX, RUBIGG, HBSAG, HIV12C, SEQL1 #### [place] [phone] HEPATITIS B SURF. AG Collected: 04/03/2018 Status: F Source: [place] 11:56 [facility] REPOSITORY TYPE CODE TESTS RESULT OUT OF REFERENCE UNITS RANGE LAB HBSAG Negative Hepatitis B Negative Surf. Ag Performed By: #### CBC, SYPHGX, RUBIGG, HBSAG, HIV12C, SEQL1 #### [place] [phone] HIV 12 COMBO (AG/AB) Collected: 04/03/2018 Status: F Source: [place] 11:56 [facility] REPOSITORY TYPE CODE TESTS RESULT OUT OF REFERENCE UNITS RANGE LAB HVAGAB Non Reactive HIV Non Reactive 12 Ag/Ab Result Comment: (NOTE) HIV Information: [place] Rev. Code 3701.243(E): This information has been disclosed to you from confidential records protected from disclosure by state law. You shall make no further disclosure of this information without the specific, written, and informed release of the individual to whom it pertains, or as otherwise permitted by state law. A general authorization for the release of medical or other information is not sufficient for the purpose of the release of HIV test results or diagnoses. Performed By: #### CBC, SYPHGX, RUBIGG, HBSAG, HIV12C, SEQL1 #### [facility] Your Office Agent [address] [place], [place] [address] SEQUENT SCRN FIRST Collected: 04/03/2018 Status: F Source: [place] [facility] PATIENTS ONLY 11:56 AM [facility] REPOSITORY TYPE CODE TESTS RESULT OUT OF REFERENCE UNITS RANGE LAB SE1PAP MoM 0.58 SE1 PAOLO A LAB SE1HCG MoM 1.48 SE1 hCG LAB SE1INT Final result pending second Final trimester SE1 result pending sample Interp second trimester sample LAB SE1SDN SE1 Scrn 1:1300 Rsk Dn Synd LAB SE1ADN 1:830 SE1 Age Rsk Dn Synd LAB SE1STR SE1 Scr <1:93637 Rsk Trsmy18 LAB SE1ATR SE1 Age 1:2500 Rsk Trsmy18 LAB SE1RS View Seq Scrn results in First Trim Scanned Documents link when available. LAB SEQLRV SEQ Staff Reviewed by Review Shaun Stephens MD, PhD ([id number]) Performed By: #### CBC, SYPHGX, RUBIGG, HBSAG, HIV12C, SEQL1 #### [facility] Your Office Agent [facility], [place] [address] TYPE AND SCR,PRENATL Collected: 04/03/2018 Status: F Source: [place] 11:56 AM [facility] REPOSITORY TYPE CODE TESTS RESULT OUT OF REFERENCE UNITS RANGE LAB %ABR A ABO/RH(D) POSITIVE LAB % Antibody NEG Screen Performed By: #### TSPN #### [facility] [address], [place] [address] GC/CHLAMYDIA AMPLIF Collected: 03/28/2018 Status: F Source: [place] 11:00 AM [facility] REPOSITORY TYPE CODE TESTS RESULT OUT OF REFERENCE UNITS RANGE LAB GCCTSR GC/Chlam Amp Cervix Source LAB GCAMPL GC Negative Amplification for Neisseria gonorrhoeae by amplification. LAB CLAMPL Chlamydia Negative Amplif for Chlamydia trachomatis by amplification. Performed By: #### GCCT #### [facility] [address] [place], [place] [address] CYTOLOGY Observed: 03/28/2018 Status: C Source: [place] 10:30 AM [facility] REPOSITORY ADDITIONAL PROCEDURES PRESENT ---Abnormal Pap Test - Epithelial Cell Abnormality--- Specimen originated from [facility] Specimen #: [id number] Submitting Physician: CHRISTEN MANCILLA MD SPECIMEN SUBMITTED A: CERVICAL, SCREENING, FLUID FINAL DIAGNOSIS A. CERVICAL, SCREENING, FLUID Satisfactory for interpretation. No endocervical component. Epithelial cell abnormality. Atypical squamous cells of undetermined significance (ASC-US). Fungal organisms morphologically consistent with Tran species. This specimen has been analyzed by the ThinPrep Imaging System, an automated imaging and review system, which assists the laboratory in evaluating cells on ThinPrep Pap tests. Following automated imaging, selected lanier from every slide are reviewed by a shop technician. Rafi Larry M.D. (Electronic Signature) ADDITIONAL PROCEDURE(S) HUMAN PAPILLOMA VIRUS Date Ordered: 04/04/2018 Date Reported: 04/08/2018 Procedure Results and Interpretation Negative for HPV DNA high risk type 16 by PCR. Negative for HPV DNA high risk type 18 by PCR. Negative for HPV DNA high risk types: 31,33,35,39,45,51,52,56,58,59,66,68 by PCR. This test was developed and its performance characteristics determined by [facility] ([facility]). It has not been cleared or approved by the FDA. [facility] is regulated under CLIA as qualified to perform high-complexity testing. This test is used for clinical purposes. It should not be regarded as investigational or for research. 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 The Pap Smear is a screening test for cervical cancer. False negative results occur with all screening tests, emphasizing the need for rescreening at recommended intervals, and clinical correlation. HPV W/GENOTYPE Collected: 03/28/2018 Status: F Source: [place] 10:30 [facility] REPOSITORY TYPE CODE TESTS RESULT OUT OF REFERENCE UNITS RANGE LAB HPVT16 HPV HighRisk Negative for Type 16 HPV DNA high risk type 16 by PCR. LAB HPVT18 HPV HighRisk Negative for Type 18 HPV DNA high risk type 18 by PCR. LAB HPVHRO HPV HighRisk Negative for Other HPV DNA high risk types: 31,33,35,39,45 ,51,52,56,58,5 9,66,68 by PCR. Result Comment: This test was developed and its performance characteristics determined by [facility] ([facility]). It has not been cleared or approved by the FDA. [facility] is regulated under CLIA as qualified to perform high-complexity testing. This test is used for clinical purposes. It should not be regarded as inv estigational or for research. Performed By: #### HPVHRR #### [facility] [address] [place], [place] [address] PROGRESS Observed: 03/28/2018 Status: COMPLETED Source: [place] 9:59 AM [facility] REPOSITORY HNO ID: [id number] Author: Christen Mancilla Service: (none) Author Type: Physician Type: Progress Notes Filed: 03/28/2018 12:36 PM Note Text: INITIAL OB ASSESSMENT OB Provider: Nicci Ham LPN HPI: Dex Mallory is a 22 year old female here to establish Obstetrical Care. Patient's last menstrual period was 01/05/2018 (exact date). from OB Dating Form. Complaints: nausea and vomiting, getting better AND tolerating some PO was planned. Obstetric History T1 L1 SAB0 TAB0 Ectopic0 Multiple0 Live Births1 Prior : never History of 4th degree laceration: No Patient's Risk Screening for delivery: History of abnormal pap: No Prior treatment for cervical dysplasia: none. 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 Patient BMI over 30? Yes Marital Status:Co-habitating Partner: Name: Medardo PAST MEDICAL HISTORY Diagnosis Date - depression PAST SURGICAL HISTORY Procedure Laterality Date - NONE Current Outpatient Prescriptions on File Prior to Visit: Jvjbxdfw-Yf-Rhe-Fe-FA ( VITAMIN) tab Take 1 tablet by mouth. No current facility-administered medications on file prior to visit. Review of Systems: GENERAL: Negative for: Fever or Chills HEENT: Negative for: , Impaired Vision, Ringing in Ears, Nosebleeds; intermittent headaches - also had last NECK: Negative for: Swelling, Pain, Stiffness RESPIRATORY: Negative for: Cough, Shortness of breath, Wheezing GASTROINTESTINAL: Negative for: Heartburn, Constipation, Diarrhea, Blood in stool MUSCULOSKELETAL: Negative for: Muscle or joint pain, stiffness, Joint swelling NEUROLOGIC/PSYCHIATRIC: Negative for: Weakness, Paralysis, Numbness, Tingling, Tremor, Anxiety, Depression, Memory loss SKIN: Negative for: Rash, Itching GENITOURINARY: Negative for: vaginal itching, vaginal discharge, hematuria or dysuria PHYSICAL EXAM: LMP 01/05/2018 GENERAL: pleasant female in no apparent distress DERMATOLOGY: Normal, without lesions, non-icteric and non-hirsute NECK: Supple, full range of motion, no adenopathy and thyroid normal CHEST: Normal inspiratory effort BREAST: soft, non-tender, symmetric, no dominant mass, normal nipple-areolar complex, no lymphadenopathy and no nipple discharge ABDOMEN: soft, non-tender and no masses NEURO: alert and oriented x3,exam grossly non-focal PELVIS: External genitalia normal without lesions. Perineal body intact. No vaginal or cervical lesions. Cervix closed. Uterus 12 week size. No adnexal masses or tenderness. Clinical Pelvimetry: Pelvimetry clinically assessed as adequate Limited OB ultrasound exam: single intrauterine and positive cardiac activity ASSESSMENT: 22 year old at 11AND5 wks gestational age PLAN: 1) Patient oriented to practice. Discussed nutrition, folic acid supplementation, dietary guidelines, exercise, smoking, alcohol, caffeine, and drug use. Discussed routine OB labs including STD/HIV. Discussed aneuploidy screening options including serum screening and nuchal translucency. 2) See problem list Follow up in 4 weeks or sooner prn. Christen Mancilla MD PROGRESS Observed: 03/27/2018 Status: COMPLETED Source: [place] 5:06 PM [facility] REPOSITORY [facility] ID: [id number] Author: Luz Gomez RN Service: (none) Author Type: (none) Type: Progress Notes Filed: 03/27/2018 5:32 PM Note Text: #: 1, Date: 10[birth year], Sex: Male, Weight: 7 lb 9 oz (3.43 kg), GA: 40w3d, Delivery: Vaginal, Spontaneous Delivery, Apgar1: None, Apgar5: None, Living: Living, Comments: None #: 2, Date: None, Sex: None, Weight: None, GA: None, Delivery: None, Apgar1: None, Apgar5: None, Living: None, Comments: None CNNURSE Observed: 03/27/2018 Status: COMPLETED Source: [place] 2:30 PM [facility] REPOSITORY Nurse Visit (WOOB) DEX MALLORY ([id number]) 1995 F Date Time Provider Department 03/27/18 2:30 PM NURSE [facility] WSTR WOOB During your visit today, we recorded the following information about you: Luz Gomez RN 03/27/2018 3:15 PM Signed SEQUENTIAL SCREENINGS The [facility] offers sequential screenings for women who are interested in screenings for chromosomal abnormalities and certain defects during a . The sequential screen combines ultrasound and blood tests to determine the risk of chromosomal abnormalities, including Down's Syndrome (Trisomy 21) and Trisomy 18, as well as open neural tube defects including spina bifida. Ultrasound examination is performed between 11 weeks and 13 weeks gestational age. Blood tests are drawn after the ultrasound and again later in the between 15 and 21 weeks gestational age. Please let your physician know if you are interested in this testing. It will require an appointment with our cooling tower technician. This is not an ultrasound performed by a physician in our office during a routine visit. SIGNS AND SYMPTOMS OF LABOR 1. Contractions every 10 minutes or more often 2. Clear, pink, or brownish fluid (water) leaking from vagina 3. Feeling that baby is pushing down, pressure 4. Low, dull backache 5. Cramps that feel like a period 6. Cramps with or without diarrhea If you notice any of the above symptoms, contact our office at [phone] and ask to speak with a nurse. After hours, you can call doctors registry at [phone] OR call [facility] at [phone] and ask to have the doctor masonry instructor paged. If you consider this an emergency, dial 9-- or go to your nearest emergency department. Cord-Blood Banking Up until recently, the umbilical cord--along with the blood that remained in it after a baby was born and the cord cut--was simply discarded by the hospital. Then, in the late , researchers discovered that cord blood possessed unusual properties that made it useful in the treatment of patients with some cancers and other illnesses. While the actual process of collecting cord blood is straightforward, many parents are not even aware that this option now exists, much less familiar with all the issues involved. The case for saving your baby's cord blood The blood running back and forth between your baby and the placenta is full of immature cells called stem cells. Unlike embryonic stem cells, which have the ability to develop into any type of body cell, cord-blood stem cells already are locked into a certain, vital function: making all the different components of the blood, such as platelets, white blood cells, and red blood cells-serving, in effect, like bone marrow. When transfused into a patient whose own blood cells have faulty genetic coding or have been destroyed by chemotherapy or other cancer treatments, the cord-blood cells can implant themselves in the bone marrow and generate legions of new, healthy cells. These days, cord-blood transplants most commonly are used in cancer patients when a donor can't be found for a bone-marrow transplant. The treatment is particularly effective in young patients-the [facility] Cord Blood Bank reports a 70 percent success rate in children, but only 20 to 40 percent in adults. Researchers envision improving those odds and see many future applications as well, such as curing sickle cell disease and other blood-related genetic illnesses. So there is a possibility that your child, or someone else, may need these super-healthy and versatile cells one day. The drawbacks Aside from not knowing about this medical option, the main reason most people do not save their baby's stem cells is cost. In a private blood bank, the initial costs run from $275 to $1,500. Most also charge a yearly storage fee of $50 to $95. The advantage of using a private bank is that your sample is saved for only you to use. An alternative to private banking Public cord-blood [place] are an alternative. These cost no money to use, but your sample is not specifically saved for you. Another person with a more immediate need may use it. If the time should come that you need stem cells, yours may still be available, or you may use donations from other people without charge. You also can direct your sample to go to a relative with an immediate need if the blood type matches. Anyone else needing to use stem cells from a public bank who has not been a donor must pay for it, sometimes tens of thousands of dollars. Will my family benefit from saving stem cells? Right now, situations in which stem cells would be helpful are quite rare. As mentioned earlier, stem-cell transplants are most commonly used for rare genetic conditions and for some types of cancer, including leukemia and lymphoma. And even with these present uses, many questions remain. In cancer treatment, for example, some researchers are concerned about the wisdom of transplanting back into the child the same cells that already showed a propensity to become malignant. Doctors also aren't sure if the number of cells taken at the time of would be enough to treat a full-grown 16-year-old. It is also not completely clear how active the cells would be after years of being stored. The treatment is so new and rare, we just don't have the data yet to resolve these important issues. What do the experts say? The [place] [employer] encourages philanthropic blood banking in public [place], but only for families with a current or potential need. Blood-bank proponents encourage any kind of banking, pointing out that research is getting closer and closer to many diverse, live-saving applications. How do I decide? Each family must weigh the pros and cons for themselves. Some families say that any cost is worth their peace of mind. Others say that in the face of uncertainty about the effectiveness of the treatment, they will use their resources elsewhere. Some choose the middle ground of donating publicly, knowing that their sample might benefit another family, if not themselves. For more information, ask your doctor or nurse, and be sure to check out our article on the technical aspects of cord-blood banking. Technical Aspects of Cord-Blood Banking If you are interested in storing your baby's umbilical-cord blood because of its possible use in emerging medical treatments, you must make arrangements with a blood bank before your child is born. The collection procedure is quite simple: After delivery of the baby, the umbilical cord is clamped and cut in the usual way. The blood that remains in the umbilical-cord vessels is then collected in sterile containers. The blood may be removed from the cord with a large needle or allowed to flow freely, depending on the company's collection system. The containers may look like large test tubes or like the plastic bags used in a blood bank. It does not cause the mother or the baby any pain to collect the blood, and no blood is taken that the baby needs at the moment. The nurse, museum librarian, or physician will then label the samples, check them over with you, and package them for a special pickup arranged with a commercial carrier. When the blood arrives at the blood-bank facility, it is processed and the parents are notified. It is then kept in an advanced storage system for years. How do I know that my sample is safe? Power outages and bankruptcies potentially could threaten any organization, but so far none have been reported. It is to be hoped that the scientists in these masterson would arrange for safe transfer to another facility if the need arose. YOU MUST MAKE ARRANGEMENTS AHEAD OF TIME! Public cord-blood masterson--DONATION: [employer] [phone] [facility] Placental Blood Program, [facility] Umbilical Cord Blood Bank, Private cord-blood masterson--SAVING FOR YOUR OWN USE: [employer]Cell [employer], (I think this is the least expensive) [employer] [phone] [facility], (167) [facility] [place] [facility], [phone] Cells, [phone] [place] [facility], Cord Blood Registry, (790) [facility], An Internet search may provide you with additional listings. Luz Gomez RN 03/27/2018 5:32 PM Signed #: 1, Date: [birth year], Sex: Male, Weight: 7 lb 9 oz (3.43 kg), GA: 40w3d, Delivery: Vaginal, Spontaneous Delivery, Apgar1: None, Apgar5: None, Living: Living, Comments: None #: 2, Date: None, Sex: None, Weight: None, GA: None, Delivery: None, Apgar1: None, Apgar5: None, Living: None, Comments: None Referring Provider: SELF [200] Allergies As of Date: 03/27/2018 Noted Allergy Reaction STRAWBERRIES 03/27/2018 4 - Hives SULFA (SULFONAMIDE ANTIBIOTICS) 03/27/2018 4 - Hives Date Reviewed: 03/27/2018 Reviewed by: Luz Gomez RN - Fully Assessed Reason for Visit: Care [86] Cmt: Pre-New OB Primary Visit Diagnosis:Encounter for supervision of normal in multigravida in first trimester [Z34.81] Other Visit Diagnoses:Nausea and vomiting in [O21.9] History of delivery [Z87.42] Obesity in [O99.210] History of depression [Z87.59, Z86.59] Patient requested diagnostic testing [Z01.89] Order(s):ROLY PT ED OVERHAULER HELPER [[id number]] Order #: [id number]: 1 FUTURE ROLY PT ED OVERHAULER HELPER [[id number]] Order #: [id number]. #:[id number]: 1 Prescriptions as of 03/27/2018 Sig: VITAMIN,CALCIUM,MINE* Take 1 tablet by mouth. Problem List As Of Date 03/27/2018 Noted Resolved Nausea and vomiting in [O21.9] INVALID FOR* More... History of delivery [Z87.42] INVALID FOR* More... Obesity in [O99.210] INVALID FOR* More... History of depression [Z87.59, Z86.5*INVALID FOR* More... Patient requested diagnostic testing [Z01.89] INVALID FOR* More... Other instructions from your clinician: SEQUENTIAL SCREENINGS The [facility] offers sequential screenings for women who are interested in screenings for chromosomal abnormalities and certain defects during a . The sequential screen combines ultrasound and blood tests to determine the risk of chromosomal abnormalities, including Down's Syndrome (Trisomy 21) and Trisomy 18, as well as open neural tube defects including spina bifida. Ultrasound examination is performed between 11 weeks and 13 weeks gestational age. Blood tests are drawn after the ultrasound and again later in the between 15 and 21 weeks gestational age. Please let your physician know if you are interested in this testing. It will require an appointment with our cooling tower technician. This is not an ultrasound performed by a physician in our office during a routine visit. SIGNS AND SYMPTOMS OF LABOR 1. Contractions every 10 minutes or more often 2. Clear, pink, or brownish fluid (water) leaking from vagina 3. Feeling that baby is pushing down, pressure 4. Low, dull backache 5. Cramps that feel like a period 6. Cramps with or without diarrhea If you notice any of the above symptoms, contact our office at [phone] and ask to speak with a nurse. After hours, you can call doctors registry at [phone] OR call [facility] at [phone] and ask to have the doctor masonry instructor paged. If you consider this an emergency, dial 9-1-1 or go to your nearest emergency department. Cord-Blood Banking Up until recently, the umbilical cord--along with the blood that remained in it after a baby was born and the cord cut--was simply discarded by the hospital. Then, in the late , researchers discovered that cord blood possessed unusual properties that made it useful in the treatment of patients with some cancers and other illnesses. While the actual process of collecting cord blood is straightforward, many parents are not even aware that this option now exists, much less familiar with all the issues involved. The case for saving your baby's cord blood The blood running back and forth between your baby and the placenta is full of immature cells called stem cells. Unlike embryonic stem cells, which have the ability to develop into any type of body cell, cord-blood stem cells already are locked into a certain, vital function: making all the different components of the blood, such as platelets, white blood cells, and red blood cells-serving, in effect, like bone marrow. When transfused into a patient whose own blood cells have faulty genetic coding or have been destroyed by chemotherapy or other cancer treatments, the cord-blood cells can implant themselves in the bone marrow and generate legions of new, healthy cells. These days, cord-blood transplants most commonly are used in cancer patients when a donor can't be found for a bone-marrow transplant. The treatment is particularly effective in young patients- the [facility] Cord Blood Bank reports a 70 percent success rate in children, but only 20 to 40 percent in adults. Researchers envision improving those odds and see many future applications as well, such as curing sickle cell disease and other blood-related genetic illnesses. So there is a possibility that your child, or someone else, may need these super-healthy and versatile cells one day. The drawbacks Aside from not knowing about this medical option, the main reason most people do not save their baby's stem cells is cost. In a private blood bank, the initial costs run from $275 to $1,500. Most also charge a yearly storage fee of $50 to $95. The advantage of using a private bank is that your sample is saved for only you to use. An alternative to private banking Public cord-blood masterson are an alternative. These cost no money to use, but your sample is not specifically saved for you. Another person with a more immediate need may use it. If the time should come that you need stem cells, yours may still be available, or you may use donations from other people without charge. You also can direct your sample to go to a relative with an immediate need if the blood type matches. Anyone else needing to use stem cells from a public bank who has not been a donor must pay for it, sometimes tens of thousands of dollars. Will my family benefit from saving stem cells? Right now, situations in which stem cells would be helpful are quite rare. As mentioned earlier, stem-cell transplants are most commonly used for rare genetic conditions and for some types of cancer, including leukemia and lymphoma. And even with these present uses, many questions remain. In cancer treatment, for example, some researchers are concerned about the wisdom of transplanting back into the child the same cells that already showed a propensity to become malignant. Doctors also aren't sure if the number of cells taken at the time of would be enough to treat a full-grown 16-year-old. It is also not completely clear how active the cells would be after years of being stored. The treatment is so new and rare, we just don't have the data yet to resolve these important issues. What do the experts say? The [place] [employer] encourages philanthropic blood banking in public masterson, but only for families with a current or potential need. Blood-bank proponents encourage any kind of banking, pointing out that research is getting closer and closer to many diverse, live-saving applications. How do I decide? Each family must weigh the pros and cons for themselves. Some families say that any cost is worth their peace of mind. Others say that in the face of uncertainty about the effectiveness of the treatment, they will use their resources elsewhere. Some choose the middle ground of donating publicly, knowing that their sample might benefit another family, if not themselves. For more information, ask your doctor or nurse, and be sure to check out our article on the technical aspects of cord-blood banking. Technical Aspects of Cord-Blood Banking If you are interested in storing your baby's umbilical- cord blood because of its possible use in emerging medical treatments, you must make arrangements with a blood bank before your child is born. The collection procedure is quite simple: After delivery of the baby, the umbilical cord is clamped and cut in the usual way. The blood that remains in the umbilical-cord vessels is then collected in sterile containers. The blood may be removed from the cord with a large needle or allowed to flow freely, depending on the company's collection system. The containers may look like large test tubes or like the plastic bags used in a blood bank. It does not cause the mother or the baby any pain to collect the blood, and no blood is taken that the baby needs at the moment. The nurse, museum librarian, or physician will then label the samples, check them over with you, and package them for a special pickup arranged with a commercial carrier. When the blood arrives at the blood- bank facility, it is processed and the parents are notified. It is then kept in an advanced storage system for years. How do I know that my sample is safe? Power outages and bankruptcies potentially could threaten any organization, but so far none have been reported. It is to be hoped that the scientists in these masterson would arrange for safe transfer to another facility if the need arose. YOU MUST MAKE ARRANGEMENTS AHEAD OF TIME! Public cord-blood masterson--DONATION: [employer] [phone] [facility]'s Placental Blood Program, [facility] Umbilical Cord Blood Bank, Private cord-blood masterson--SAVING FOR YOUR OWN USE: [employer], (I think this is the least expensive) [employer] [phone] [facility], (311) [facility], [phone] Cells, [phone] [place] [facility], Cord Blood Registry, (384) HAVEN Cook, An Internet search may provide you with additional listings. Disposition: Return in 1 day (on 03/28/2018) for New OB with Dr Mancilla. Follow-up and Disposition History Recorded Letter Text Dear Dex Mallory: How to activate your [facility] Impermium Account 1. Visit the Impermium Signup page at [email or web address] 2. Identify yourself using your one-time use activation code: [email or web address] 3. Follow the on-screen prompts to choose your own secure username and password The following information will be necessary to access your account for the first time: Information needed for sign-up: Your custom activation code used one-time only for the initial account set-up. Your date of The last 4 digits of your social security number What to do next: Fill in the requested information on the Identify Yourself Form at [email or web address] , click Next. Create your login and password, choose a Impermium ID and password that will be easy for you to use, but impossible for anyone else to guess. Pick a security question that will assist you in the event you forget your password the next time you log-on. If you have difficulty activating your account, please call our Impermium helpline at [phone] or toll free at . We hope you enjoy using Impermium! Kindest Regards, [facility] Impermium Team Encounter Status:Closed by LUZ GOMEZ RN on 03/27/18 CBC Collected: 02/28/2018 Status: F Source: [facility] 11:40 AM FOUNDATION REPOSITORY TYPE CODE TESTS RESULT OUT OF REFERENCE UNITS RANGE LAB WBC(LOINC) 4.60-10.80 10 3/mcL High WBC 12.80 LAB RBCCT(LOINC 4.20-5.40 10 6/mcL ) RBC 5.06 LAB HGB(LOINC) 12.0-16.0 G/dL Hgb 13.4 LAB HCT(LOINC) 37.0-47.0 % Hct 39.1 LAB MCV(LOINC) 80.0-94.0 fL Low MCV 77.2 LAB MCH(LOINC) 27.0-31.2 pg Low MCH 26.5 LAB MCHC(LOINC) 33.0-37.0 G/dL MCHC 34.4 LAB RDW(LOINC) 11.5-14.5 % RDW 14.0 LAB PLT(LOINC) 130-400 10 3/mcL Platelet 322 LAB MPV(LOINC) 7.4-10.4 fL MPV 8.0 Performed By: #### CBC, ADIFF, ANEU, GFR, BMP #### [address] [address] .AUTO DIFF Collected: 02/28/2018 Status: F Source: [facility] 11:40 AM [facility] REPOSITORY TYPE CODE TESTS RESULT OUT OF REFERENCE UNITS RANGE LAB MILLER(LOINC) 37.0-80.0 % Neutrophil % 78.3 LAB LYM(LOINC) 10.0-50.0 % Lymphocyte % 17.7 LAB MON(LOINC) 1.7-13.0 % Monocyte % 3.2 LAB EO(LOINC) 0.0-7.0 % Eosinophil % 0.2 LAB BAS(LOINC) 0.0-2.5 % Basophil % 0.6 LAB ABLYM(LOIN 0.77-3.85 10 3/mcL C) Lymphocyte, 2.30 Absolute LAB BETH(LOINC 0.15-1.00 10 3/mcL ) Monocyte, 0.40 Absolute LAB AEOS(LOINC 0.00-0.40 10 3/mcL ) Eosinophil, 0.00 Absolute LAB ABAS(LOINC 0.00-0.19 10 3/mcL ) Basophil, 0.10 Absolute Performed By: #### CBC, ADIFF, ANEU, GFR, BMP #### [address] [address] .NEUABS Collected: 02/28/2018 Status: F Source: [facility] 11:40 AM [facility] REPOSITORY TYPE CODE TESTS RESULT OUT OF REFERENCE UNITS RANGE LAB ANEU(LOINC) 2.85-6.16 10 3/mcL High Neutrophil, 10.00 Absolute Performed By: #### CBC, ADIFF, ANEU, GFR, BMP #### [address] [address] .GFR Collected: 02/28/2018 Status: F Source: [facility] 11:40 AM [facility] REPOSITORY TYPE CODE TESTS RESULT OUT OF REFERENCE UNITS RANGE LAB GFRAA(LOINC ml/min/1.73 ) sqm GFR 155 [place] Result Comment: GFR Population mean for , Non- Americans Ages 20-29 = 116 mL/min/1.73 sq.m. Ages 30-39 = 107 mL/min/1.73 sq.m. Ages 40-49 = 99 mL/min/1.73 sq.m. Ages 50-59 = 93 mL/min/1.73 sq.m. Ages 60-69 = 85 mL/min/1.73 sq.m. Ages 70+ = 75 mL/min/1.73 sq.m. Chronic Kidney Disease: Less than 60 mL/min/1.73 square meters End Stage Renal Disease: Less than 15 mL/min/1.73 square meters LAB GFRNO(LOINC) ml/min/1.73sqm GFR Non- >60 Result Comment: GFR Population mean for , Non- Americans Ages 20-29 = 116 mL/min/1.73 sq.m. Ages 30-39 = 107 mL/min/1.73 sq.m. Ages 40-49 = 99 mL/min/1.73 sq.m. Ages 50-59 = 93 mL/min/1.73 sq.m. Ages 60-69 = 85 mL/min/1.73 sq.m. Ages 70+ = 75 mL/min/1.73 sq.m. Chronic Kidney Disease: Less than 60 mL/min/1.73 square meters End Stage Renal Disease: Less than 15 mL/min/1.73 square meters Performed By: #### CBC, ADIFF, ANEU, GFR, BMP #### [place] [address] [address] BMP Collected: 02/28/2018 Status: F Source: [facility] 11:40 AM [facility] REPOSITORY TYPE CODE TESTS RESULT OUT OF REFERENCE UNITS RANGE LAB GLU(LOINC) 70-105 mg/dL Glucose Level 100 LAB NA(LOINC) 136-146 mEq/L Sodium Level 136 LAB K(LOINC) 3.5-5.1 mEq/L Potassium Level 3.8 LAB CL(LOINC) 98-107 mEq/L Chloride 103 LAB CO2(LOINC) 22-29 mEq/L CO2 22 LAB EBAL(LOINC mEq/L ) Electrolyte Balance 11.0 LAB BUN(LOINC) 7.0-18.0 mg/dL Low BUN 6.5 LAB CRE(LOINC) 0.6-1.2 mg/dL Creatinine Lvl (s) 0.6 LAB BC(LOINC) 7-27 ratio BUN/Creatinine 11 Ratio LAB CA(LOINC) 8.4-10.2 mg/dL Calcium Lvl 9.9 Performed By: #### CBC, ADIFF, ANEU, GFR, BMP #### [address] [place], [place] [address] UA Collected: 02/28/2018 Status: F Source: [facility] 11:40 AM [facility] REPOSITORY TYPE CODE TESTS RESULT OUT OF RANGE REFERENCE UNITS LAB SPCUA(AZRA NC) UA Specimen Type Clean Catch LAB CLRUA(AZRA NC) UA Color YELLOW LAB APPUA(AZRA NC) UA Appear CLEAR LAB SGUA(LOIN C) UA Spec Grav 1.015 LAB GLUA(LOIN mg/dL C) UA Glucose NEGATIVE LAB BILUA(AZRA NC) UA Bili SMALL LAB KETUA(AZRA Negative mg/dL NC) UA Ketones Unknown >=80 LAB BLDUA(AZRA NC) UA Blood NEGATIVE LAB PHUA(LOIN C) UA pH 6.5 LAB PROUA(AZRA Negative mg/dL NC) UA Protein 30 LAB UROUA(AZRA E.U./dL NC) UA Unknown Urobilinogen 2.0 LAB NITUA(AZRA NC) UA Nitrite NEGATIVE LAB LEUUA(AZRA NC) UA Leuk Est MODERATE Performed By: #### UA, UAMICAO #### [place] [address] [place], [place] [address] .URINALYSIS MICROSCOPIC Collected: 02/28/2018 Status: F Source: [facility] () 11:40 [facility] REPOSITORY TYPE CODE TESTS RESULT OUT OF RANGE REFERENCE UNITS LAB WBCUA(LOIN None Seen /hpf C) Unknown UA WBC 5-10 LAB RBCUA(LOIN None Seen /hpf C) UA RBC None Seen LAB EPIUA(LOIN None Seen /hpf C) Unknown UA Squam Epithelial LOADED LAB BACUA(LOIN /hpf C) Unknown UA Bacteria Trace Performed By: #### UA, UAMICAO #### [place] [address] [address] ALLERGIES ALLERGIES DATE TYPE / CODE NAME / CODE REACTION SEVERITY SOURCE 03/27/2018 Food/174624 STRAWBERRIES HIVES [facility] 000(SNOMED [address] [place] [address]) Repository 03/27/2018 Drug SULFA (SULFONAMIDE HIVES [facility] Class/68643 ANTIBIOTICS) [place] 1003(SNOMED Repository CT) 10/23/2016 Drug Sulfa (Sulfonamide Hives [place] Allergy/416 Antibiotics)/S48125 Community 372092([facility] 0491(RXNO) [facility] ED CT) Repository 10/22/2016 Drug strawberry/[id number] Hives Unknown [facility] Allergy/416 37(RXNORM) Community 570327([facility] ED CT) Repository ENCOUNTERS ENCOUNTERS ADMIT/DISCHARGE ACCOUNT NUMBER ADMITTING ENCOUNTER LOCATION SOURCE CLASS 10/06/2018/10/06/[id number] ding:WPOUTRo Repository om: [id number] 10/06/2018/10/07/[id number] Repository 09/29/2018/09/30/[id number] Repository 09/25/2018/09/25/[id number] ding:WPOUTRo Repository om: [id number] 09/22/2018/09/23/20 [id number] Ambulatory [address] Repository 09/19/2018/09/24/20 [id number] Ambulatory [address] Repository 09/18/2018 [id number] [facility] ding:LABSPEC Repository 09/17/2018/09/17/[id number] ding:WPOUTRo Repository om: [id number] 09/17/2018/09/18/20 [id number] Ambulatory [address] Repository 09/12/2018/09/15/20 [id number] Ambulatory [address] Repository 08/30/2018/11/10 [id number] Ambulatory [address] [place] Repository 08/29/2018/09/04/20 [id number] Ambulatory [address] [place] Repository 08/11/2018/08/12/20 [id number] Ambulatory [address] [place] Repository 07/04/2018/07/07/20 [id number] Ambulatory [address] [place] Repository 06/26/2018/06/27/20 [id number] Ambulatory [address] [place] Repository 06/12/2018/06/12/20 [id number] Emergency BBuilding:ER [facility] Repository 06/12/2018/06/12/20 [id number] Ambulatory BBuilding:OB [place] 18 URoom: Health 0209Bed: A [facility] Repository 05/23/2018/05/26/20 [id number] Ambulatory [address] [place] Repository 05/23/2018/05/26/20 [id number] Ambulatory [address] [place] Repository 04/25/2018/04/28/20 [id number] Ambulatory [address] [place] Repository 04/03/2018 [id number] Ambulatory [facility] [place] Repository 04/03/2018/04/08/20 [id number] Ambulatory [address] [place] Repository 03/28/2018/04/01/20 [id number] Ambulatory [address] [place] Repository 03/27/2018/04/01/20 [id number] Ambulatory [address] [place] Repository 03/04/2018/03/04/20 [id number] Emergency BBuilding:ER [facility] Repository 02/28/2018/02/29/20 [id number] Emergency BBuilding:ER [facility] Repository PAYERS PAYERS ENCOUNTER GUARANTOR PAYER SUBSCRIBER SOURCE 10/06/2018 DEX Primary DEX [id number] Insurance:Amanda PHAN: Community MARKET y Number: [id number], [place] [id number] Repository [address]Jzd: (330) Date:9489-48-79KU [phone] ([address] [address]RW: 10/06/2018 Secondary NOT GIVENUNK [place] Insurance:SELF PAY [facility]: Effective Repository Date:2018-10-06 09/25/2018 DEX Primary DEX [id number] Insurance:MOLINAPolic DODSONDOB: Community MARKET y Number: [id number], [place] [id number] Repository [address]Zxm: 330) Date:1418-49-46PF [phone] () [address] [place] [address]HI: 09/25/2018 Secondary NOT GIVENUNK [place] Insurance:SELF PAY [facility] Number: Effective Repository Date:2018-09-25 09/18/2018 DEX Primary DEX [id number] Insurance:MOLINAPolic DODSONDOB: Community MARKET y Number: [id number], [place] [id number] Repository [address]Avq: 330) Date:6612-80-20CK [phone] () [address] [place] [address]LA: 09/18/2018 Secondary NOT GIVENUNK [facility] Insurance:SELF PAY [facility] Number: Effective Repository Date:2018-09-18 09/17/2018 DEX Primary DEX [id number] Insurance:MOLINAPolic DODSONDOB: Community MARKET y Number: [id number], [place] [id number] Repository [address]Qzc: (717) Date:1442-87-65LE [phone] () [address] [place] [address]AT: 09/17/2018 Secondary NOT GIVENUNK [place] Insurance:SELF PAY [facility] Number: Effective Repository Date:2018-09-17 06/12/2018 DEX J [facility]:VEGA DODSONDOB: [facility] [id number] N MEDICAIDPoly [id number] Repository [address] Number: [address] [place] [id number] [address]~YASMIN.DODSO Date:2018-06-12Tel: (330) [email or web address]: [phone] [phone] Name:XPO Box (HP)Tel: (000) (HP)Tel: ([phone] ClaimLong 000-0000 (WP) [phone] (WP) [place], [place] [address]SW: 06/12/2018 DEX J Primary DEX [facility]: [facility] [id number] Repository [address] Number: [address] [place] [id number] [place] [address]~YASMIN.DODSO Date:2018-06-12Tel: (330) [email or web address]: [phone] [phone] Name:XPO Box (HP)Tel: (000) (HP)Tel: ([phone] ClaimLong 000-0000 (WP) [phone] (WP) [place], [place] [address]KD: 03/04/2018 DEX J Primary DEX [facility]: Insurance:VEGA CLARITZASONDOB: [facility] N [facility] [id number] Repository [address] Number: [address] [place] [id number] [place] [address]~YASMIN.DODSO Date:2018-03-04Tel: (330) [email or web address]: [phone] [phone] Name:XPO Box (HP)Tel: (000) (HP)Tel: [phone] ClaimLong 000-0000 ) [phone] () [place], [place] [address]IR: 02/28/2018 DEX Tellez Primary DEX [facility]ellez [facility]: [facility]:GARY MORFINB: [facility] [id number] N MEDICAIDPolicy [id number] Repository [address] Number: [place], [place] [id number] [address]~YASMINMaeGLEN Date:2018-02-28 [address]Ohs: 330 [email or web address]: [phone] [phone] Name:SALLYO Box (HP)Tel: (303) (HP)Tel: [phone] ClaimLong 000-0000 (UC) [phone] () [place], [place] [address]XC:
== END 2018-09-17 13:48 | disposition home or self-care (01) ==
LOC: WPOUT 11:50 → WP 11:50
PROVIDERS: Family Provider Pediatrics; PCP Pediatrics; Referring Provider Advanced Practice Midwife; Visit Provider Advanced Practice Midwife
DX: O26.893 Other specified pregnancy related conditions, third trimester (principal); R51 Headache; Z3A.36 36 weeks gestation of pregnancy
CPT/HCPCS: 36415; 59025; 59050; 82565; 82570; 84156; 84450; 84460; 84550; 85027; 85610; 85730; 99218; G0378

== ENCOUNTER → 2018-09-18 13:05 | Outpatient (CLI) | payer MEDICAID, SELFPAY ==
[2018-09-17 12:19] VITALS: BMI 40.7
[2018-09-18 13:59] LABS: 24 Hour Urine Protein 252.8 mg/24HR (<150 MG/24HR); 24HR. UA Prot. Total Volume 800 mL; 24HR. Urine Creatinine 1.67 g/24 HR (0.70-1.90); Urine Protein (24 Hour) 31.6 mg/dL (<11.9)
--- OUTSIDE RECORDS SUMMARY | 2018-11-13 17:00 | XMS RPT_ITS ---
:1995 Author Organization [place] Support Name Relationship Address Phone ELIA MALLORY Unavailable [address] + [place] [address] MCDONALDS Unavailable [address] + [place] [address] CATARINA PIZANO Unavailable [address] + [place] [address] ELIA MALLORY Unavailable [address] + [place] [address] MCDONALDS Unavailable [address] + [place] [address] NICOLE PIZANOSON Unavailable [address] + [place] [address] ELIA MALLORY Unavailable [address] + [place] [address] MCDONALDS Unavailable [address] + [place] [address] CATARINA PIZANO Unavailable [address] + [place] [address] ELIA MALLORY Unavailable [address] + [place] [address] MCDONALDS Unavailable [address] + [place] [address] NICOLE PIZANOSON Unavailable [address] + [place] [address] MEDARDO PIZANO Unavailable Unavailable + MEDARDO PIZANO Unavailable Unavailable + TRI PIZANO Unavailable [address] + [place] [address] HARINDER, MEDARDO Unavailable Unavailable + HARINDER, MEDARDO Unavailable Unavailable + HARINDER, OLYVER Unavailable [address] + [place] [address] HARINDER, MEDARDO Unavailable Unavailable + HARINDER, MEDARDO Unavailable Unavailable + HARINDER, OLYVER Unavailable [address] + [place] [address] HARINDER, MEDARDO Unavailable Unavailable + HARINDER, MEDARDO Unavailable Unavailable + HARINDER, OLYVER Unavailable [address] + [place] [address] Care Team Providers Name Role Phone PHYSICIAN, NONE Primary Care Unavailable CESAR SAUCEDO MD Attending Unavailable PHYSICIAN, NONE Primary Care Unavailable FERMÍN HERNANDEZ MD Attending Unavailable PHYSICIAN, NONE Primary Care Unavailable ROSI FIGUEROA, DR. NOELLE Sanderson Attending Unavailable PHYSICIAN, NONE Primary Care Unavailable LEANNE SEGOVIA MD Attending Unavailable LAURENT, KARGERALDINE Attending Unavailable ARAMIS SALOMON Attending Unavailable LAURENT, KARMON Referring Unavailable LAURENT, KARMON Referring Unavailable LAURENT, KARMON Attending Unavailable LAURENT, KARMON Referring Unavailable TROY SULTANA Attending Unavailable LAURENT, KARMON Referring Unavailable LEYLA STAPLESTHIA (CNM) Attending Unavailable LAURENT, KARMON Referring Unavailable DENNIS SHER (JUNIOR ASSISTANT MANAGER) Attending Unavailable LAURENT, KARMON Referring Unavailable LEYLA STAPLESTHIA (CNM) Attending Unavailable CASSIE EDGE Attending Unavailable JOSE ARMANDO KRAMER (CNM) Attending Unavailable WISWELL, ROSALINDA Referring Unavailable JOSE ARMANDO KRAMER (CNM) Attending Unavailable WILLIAMS, JOSE ARMANDO (CNM) Attending Unavailable KRAMER, JOSE ARMANDO (CNM) Attending Unavailable WISWELL, ROSALINDA Attending Unavailable WILLIAMS, JOSE ARMANDO (CNM) Attending Unavailable WISWELL, ROSALINDA Attending Unavailable Brittany Barajas Attending Unavailable Brittany Barajas Referring Unavailable Teodora Kramerica Attending Unavailable Williams Jose Armando Referring Unavailable Nely Emmanuel Primary Care Unavailable Jose Armando Kramer Attending Unavailable Williams, Jose Armando Referring Unavailable Wiswell, Rosalinda Attending Unavailable Wiswell, Rosalinda Referring Unavailable PROBLEMS PROBLEMS DATE TYPE CONDITION / CODE ATTENDING STATUS SOURCE 09/24/2018 Unknown O26.893 - Other Jose Armando Kramer Active [facility] related Hospital conditions, third Repository trimester / O26.893(ICD-10) 08/30/2018 Active 31 weeks gestation NA Active [facility] of / [facility] Z3A.31(ICD-10) Repository 04/03/2018 Active Encounter for NA Active [facility] supervision of [facility] [place] other normal Repository , unspecified trimester / Z34.80(ICD-10) 04/03/2018 Active Encounter for NA Active [facility] screening for Repository nuchal translucency / Z36.82(ICD-10) 03/27/2018 Active Unknown / NA Active [facility] UNK(Unknown) [facility] [place] Repository PROCEDURES PROCEDURES No Procedure Records FoundRESULTS RESULTS PROTEIN, URINE 24HR Collected: 10/06/2018 Status: F Source: [place]TON 6:20 PM [facility] REPOSITORY TYPE CODE TESTS RESULT OUT OF RANGE REFERENCE UNITS LAB L501.1850 24.0 HOURS Normal UR COLLECT 24.0 TIME LAB L501.1875 mL Normal UR TOTAL 1500 VOLUME LAB L501.1900 <11.9 mg/dL High URINE PROTEIN 19.3 LAB L501.1925 <150 MG/24HR mg/24HR High 24hr UR 289.5 PROTEIN Performed By: #### L500.9000 #### [facility] [address] [place], [place], [address] PROTEIN+CREATININE Collected: Status: F Source: [place]TON RATIO,URINE 10/06/2018 6:10 PM [facility] REPOSITORY TYPE CODE TESTS RESULT OUT OF RANGE REFERENCE UNITS LAB L501.1200 NO RANGE EST. mg/dL Normal UR CREAT 147.00 LAB L501.1930 <11.9 mg/dL High 25.0 PROTEIN,UR.R AN. LAB L501.1940 0-200 mg/g CRE Normal PROT:CRE 170 RATIO Performed By: #### L501.0900 #### [facility] [address] [place], [address] SERUM CREATININE AND Collected: 10/06/2018 Status: F Source: [place] GFR 5:25 PM [facility] REPOSITORY TYPE CODE TESTS RESULT [...] By: #### L501.1105, L501.1400, L501.4100, L501.4405 #### [facility] [address] [place], [address] URIC ACID Collected: 10/06/2018 Status: F Source: WAKE 5:25 PM [facility] REPOSITORY TYPE CODE TESTS RESULT OUT OF RANGE REFERENCE UNITS LAB L501.1400 2.6-6.0 mg/dL Normal URIC 4.0 Result Comment: The drugs N-Acetylcysteine and Metamizole may falsely depress this assay. Performed By: #### L501.1105, L501.1400, L501.4100, L501.4405 #### [facility] [address] [place], [place], [id number] AST(SGOT) Collected: 10/06/2018 Status: F Source: [place]KE 5:25 PM [facility] REPOSITORY TYPE CODE TESTS RESULT OUT OF RANGE REFERENCE UNITS LAB L501.4100 15-37 U/L Low AST 8 Performed By: #### L501.1105, L501.1400, L501.4100, L501.4405 #### [facility] [address] [place], [address] ALANINE AMINOTRANSFERAS Collected: 10/06/2018 Status: F Source: [place]KE (SGPT) 5:25 PM [facility] REPOSITORY TYPE CODE TESTS RESULT OUT OF RANGE REFERENCE UNITS LAB L501.4405 13-56 U/L Low ALT 11 Performed By: #### L501.1105, L501.1400, L501.4100, L501.4405 #### [facility] [address] [place], [place], [address] PROTHROMBIN TIME W/INR Collected: 10/06/2018 Status: F Source: [place]TON 5:25 PM [facility] REPOSITORY TYPE CODE TESTS RESULT OUT OF RANGE REFERENCE UNITS LAB L300.4150 11.7-14.9 SECONDS Normal PROTIME 13.0 LAB L300.4200 Normal INR 1.0 Performed By: #### L300.3900, L300.4310 #### [facility] [address] [place], [address] PARTIAL THROMBOPLAST Collected: 10/06/2018 Status: F Source: [place]TON TIME 5:25 PM [facility] REPOSITORY TYPE CODE TESTS RESULT OUT OF RANGE REFERENCE UNITS LAB L300.4310 24.1-36.2 Seconds Normal PTT 26.4 Performed By: #### L300.3900, L300.4310 #### [facility] [address] [facility] [place], [address] CBC-COMPLETE BLOOD CNT Collected: 10/06/2018 Status: F Source: [place] NO DIFF 5:25 PM [facility] REPOSITORY TYPE CODE TESTS RESULT [...] MPV 9.6 Performed By: #### L100.0500 #### [facility] [address] [place], [address] PROGRESS Observed: 09/29/2018 Status: COMPLETED Source: [place] 5:36 PM [facility] [facility] REPOSITORY HNO ID: [id number] Author: Loan Sifuentes) Gamal Service: (none) Author Type: Insulation Machine Operator Type: Progress Notes Filed: 09/29/2018 5:37 PM [...] or cramping/contractions. 1. 38 weeks gestation of -[facility] teaching done -Labor precautions reviewed - URINE OB DIP B/O Loan Staples APRN.CNM CBC-COMPLETE BLOOD CNT Collected: 09/25/2018 Status: F Source: [place] NO DIFF 10:45 AM [facility] REPOSITORY TYPE CODE TESTS RESULT [...] MPV 9.3 Performed By: #### L100.0500 #### [facility] [address] [place], [address] PROTHROMBIN TIME W/INR Collected: 09/25/2018 Status: F Source: WAKE 10:45 AM [facility] REPOSITORY TYPE CODE TESTS RESULT OUT OF RANGE REFERENCE UNITS LAB L300.4150 11.7-14.9 SECONDS Normal PROTIME 13.3 LAB L300.4200 Normal INR 1.0 Performed By: #### L300.3900, L300.4310 #### [facility] [address] [place], [address] PARTIAL THROMBOPLAST Collected: 09/25/2018 Status: F Source: [place] TIME 10:45 AM [facility] REPOSITORY TYPE CODE TESTS RESULT OUT OF RANGE REFERENCE UNITS LAB L300.4310 24.1-36.2 Seconds Normal PTT 26.9 Performed By: #### L300.3900, L300.4310 #### [facility] [address] [place], [address] SERUM CREATININE AND Collected: 09/25/2018 Status: F Source: [place] GFR 10:45 AM [facility] REPOSITORY TYPE CODE TESTS RESULT [...] By: #### L501.1105, L501.1400, L501.4100, L501.4405 #### [facility] [address] [place], [address] URIC ACID Collected: 09/25/2018 Status: F Source: WAKE 10:45 AM [facility] REPOSITORY TYPE CODE TESTS RESULT OUT OF RANGE REFERENCE UNITS LAB L501.1400 2.6-6.0 mg/dL Normal URIC 4.4 Result Comment: The drugs N-Acetylcysteine and Metamizole may falsely depress this assay. Performed By: #### L501.1105, L501.1400, L501.4100, L501.4405 #### [facility] [address] [place], [address] AST(SGOT) Collected: 09/25/2018 Status: F Source: [place] 10:45 AM [facility] REPOSITORY TYPE CODE TESTS RESULT OUT OF RANGE REFERENCE UNITS LAB L501.4100 15-37 U/L Low AST 11 Performed By: #### L501.1105, L501.1400, L501.4100, L501.4405 #### [facility] [address] [place], [address] ALANINE AMINOTRANSFERAS Collected: 09/25/2018 Status: F Source: [place] (SGPT) 10:45 AM [facility] REPOSITORY TYPE CODE TESTS RESULT OUT OF RANGE REFERENCE UNITS LAB L501.4405 13-56 U/L Low ALT 11 Performed By: #### L501.1105, L501.1400, L501.4100, L501.4405 #### [facility] [address] [place], [address] PROTEIN+CREATININE Collected: Status: F Source: ANTON RATIO,URINE 09/25/2018 10:45 AM [facility] REPOSITORY TYPE CODE TESTS RESULT OUT OF RANGE REFERENCE UNITS LAB L501.1200 NO RANGE EST. mg/dL Normal UR CREAT 113.00 LAB L501.1930 <11.9 mg/dL High 20.7 PROTEIN,UR.R AN. LAB L501.1940 0-200 mg/g CRE Normal PROT:CRE 183 RATIO Performed By: #### L501.0900 #### [facility] [address] [place], [address] PROGRESS Observed: 09/19/2018 Status: COMPLETED Source: [place] 2:31 PM [facility] REPOSITORY HNO ID: [id number] Author: Jose Armando Kramer Service: (none) Author Type: Insulation Machine Operator Type: Progress Notes Filed: 09/23/2018 5:58 PM [...] URINE 24HR Collected: 09/18/2018 Status: F Source: WAKE 12:30 PM [facility] REPOSITORY Order Comment: START 09-17-180 END 09-18-18 1230 TYPE CODE TESTS RESULT OUT OF RANGE REFERENCE UNITS LAB L501.1850 24.0 HOURS Normal UR COLLECT 24.0 TIME LAB L501.1875 mL Normal UR TOTAL 800 VOLUME LAB L501.1900 <11.9 mg/dL High URINE PROTEIN 31.6 LAB L501.1925 <150 MG/24HR mg/24HR High 24hr UR 252.8 PROTEIN Performed By: #### L500.9000, L502.000 #### [facility] [address] [place], [place], [address] 24 HR URINE CREATININE Collected: 09/18/2018 Status: F Source: WAKE 12:30 PM [facility] REPOSITORY Order Comment: START 09-17-180 END 09-18-18 1230 TYPE CODE TESTS RESULT OUT OF RANGE REFERENCE UNITS LAB L502.0100 24.0 HOURS Normal UR COLLECT 24.0 TIME LAB L502.0200 L Normal UR TOTAL 0.80 VOLUME LAB L502.0300 NO RANGE EST. mg/dL Normal URINE CREAT 209.00 LAB L502.0400 0.70-1.90 g/24 HR Normal UR.CREAT/24hr 1.67 Performed By: #### L500.9000, L502.000 #### [facility] [address] [place], [place], [address] GROUP B STREP PCR Collected: 09/17/2018 Status: F Source: [place] 11:33 PM [facility] REPOSITORY TYPE CODE TESTS RESULT OUT OF REFERENCE UNITS RANGE LAB GBPCRT Negative for GROUP Group B B STREP PCR Streptococcus by PCR. Performed By: #### GBPCR #### [facility] [address] [place], [place] [address] PROTEIN+CREATININE Collected: Status: F Source: ANTON RATIO,URINE 09/17/2018 12:30 PM [facility] REPOSITORY TYPE CODE TESTS RESULT OUT OF RANGE REFERENCE UNITS LAB L501.1200 NO RANGE EST. mg/dL Normal UR CREAT 236.00 LAB L501.1930 <11.9 mg/dL High 30.4 PROTEIN,UR.R AN. LAB L501.1940 0-200 mg/g CRE Normal PROT:CRE 129 RATIO Performed By: #### L501.0900 #### [facility] [address] [place], [address] CBC-COMPLETE BLOOD CNT Collected: 09/17/2018 Status: F Source: [place] NO DIFF 12:10 PM [facility] REPOSITORY TYPE CODE TESTS RESULT [...] MPV 9.1 Performed By: #### L100.0500 #### [facility] [address] [facility] [place], [place], [address] SERUM CREATININE AND Collected: 09/17/2018 Status: F Source: [place]KE GFR 12:10 PM [facility] REPOSITORY TYPE CODE TESTS RESULT [...] L501.1105, L501.1400, L501.4100, L501.4405, L300.3900, L300.4310 #### [facility] [address] [place], [place], [address] URIC ACID Collected: 09/17/2018 Status: F Source: WAKE 12:10 PM [facility] REPOSITORY TYPE CODE TESTS RESULT OUT OF RANGE REFERENCE UNITS LAB L501.1400 2.6-6.0 mg/dL Normal URIC 4.6 Result Comment: The drugs N-Acetylcysteine and Metamizole may falsely depress this assay. Performed By: #### L501.1105, L501.1400, L501.4100, L501.4405, L300.3900, L300.4310 #### [facility] [address] [place], [place], [address] AST(SGOT) Collected: 09/17/2018 Status: F Source: WAKE 12:10 PM [facility] REPOSITORY TYPE CODE TESTS RESULT OUT OF RANGE REFERENCE UNITS LAB L501.4100 15-37 U/L Low AST 12 Performed By: #### L501.1105, L501.1400, L501.4100, L501.4405, L300.3900, L300.4310 #### [facility] [address] [place], [place], [address] ALANINE AMINOTRANSFERAS Collected: 09/17/2018 Status: F Source: [place] (SGPT) 12:10 PM [facility] REPOSITORY TYPE CODE TESTS RESULT OUT OF RANGE REFERENCE UNITS LAB L501.4405 13-56 U/L Normal ALT 13 Performed By: #### L501.1105, L501.1400, L501.4100, L501.4405, L300.3900, L300.4310 #### [facility] [address] [place], [address] PROTHROMBIN TIME W/INR Collected: 09/17/2018 Status: F Source: ANTON 12:10 PM [facility] REPOSITORY TYPE CODE TESTS RESULT OUT OF RANGE REFERENCE UNITS LAB L300.4150 11.7-14.9 SECONDS Normal PROTIME 13.2 LAB L300.4200 Normal INR 1.0 Performed By: #### L501.1105, L501.1400, L501.4100, L501.4405, L300.3900, L300.4310 #### [facility] [address] [place], [place], [address] PARTIAL THROMBOPLAST Collected: 09/17/2018 Status: F Source: [place] TIME 12:10 PM [facility] REPOSITORY TYPE CODE TESTS RESULT OUT OF RANGE REFERENCE UNITS LAB L300.4310 24.1-36.2 Seconds Normal PTT 27.6 Performed By: #### L501.1105, L501.1400, L501.4100, L501.4405, L300.3900, L300.4310 #### [facility] [address] [place], [place], [address] Observed: 09/17/2018 Status: F Source: [place] URINE CULTURE 11:30 AM [facility] REPOSITORY Sp. Request/Comment: - Specimen received in preservative Culture Result - 10,000 - <50,000 CFU/ml Normal urogenital renata Performed By: #### URCUL #### [facility] [address] [place], [place] [address] CBC Collected: 08/30/2018 Status: F Source: [place] 11:09 AM [facility] REPOSITORY TYPE CODE TESTS RESULT OUT [...] nRBC <0.01 Performed By: #### CBC #### [email or web address] [address] [place], [place] [address] 50G, 1HR GEST. Collected: 08/30/2018 Status: F Source: [place] GSCRN 11:08 AM [facility] REPOSITORY TYPE CODE TESTS RESULT OUT OF REFERENCE UNITS RANGE LAB GLUP 74-134 mg/dL Glucose 108 Screen, Preg Result Comment: [place] [employer] of Obstetricians and Gynecologists (Jones/Coustan) guidelines state a gestational diabetes mellitus positive screen is made, in women not previously diagnosed with overt diabetes, when the 1 hr plasma glucose level is equal to or above 140 mg/dL. The [facility] recommends a 135 mg/dL cutoff. Performed By: #### GLTGST #### [email or web address] [address] [place], [place] [address] PROGRESS Observed: 07/04/2018 Status: COMPLETED Source: [place] 5:12 PM [facility] REPOSITORY HNO ID: [id number] Author: Loan Staples Service: (none) Author Type: Insulation Machine Operator Type: Progress Notes Filed: 07/04/2018 5:12 PM [...] me off. Patient had scheduled appointment with [facility] back in March to initiate counseling but [...] daily. -Patient will call and schedule appt [facility] - patient's mother very supportive and will [...] APRN.CNM PROGRESS Observed: 05/23/2018 Status: COMPLETED Source: [place] 4:08 PM [facility] REPOSITORY O ID: [id number] Author: Troy Sultana Service: (none) Author Type: [...] indicated PROGRESS Observed: 05/23/2018 Status: COMPLETED Source: [place] 1:30 PM [facility] REPOSITORY HNO ID: [id number] Author: Loan Staples Service: (none) Author Type: Insulation Machine Operator Type: Progress Notes Filed: 05/23/2018 1:31 PM [...] supervision of other normal in second trimester -[facility] teaching and PTL precautions reviewed - URINE OB DIP B/O 2. 19 weeks gestation of -- URINE OB DIP B/O Loan Staples APRN.CNM PROGRESS Observed: 04/04/2018 Status: COMPLETED Source: [place] 11:50 AM [facility] REPOSITORY HNO ID: [id number] Author: Aramis Salomon Service: (none) Author Type: Physician Type: Progress Notes Filed: 04/04/2018 11:50 AM Note Text: Please see ultrasound report for details of this visit. Aramis Salomon M.D. TOXICOLOGY SCREEN,UR Collected: 04/03/2018 Status: F Source: [place] 1:10 PM [facility] REPOSITORY TYPE CODE TESTS RESULT OUT [...] on the same specimen through Client Services ([phone]) if contacted within 48 hours of initial testing. [1]Substance Abuse and Mental Health Services Administration (2012). Clinical Drug Testing in Primary Care Technical Assistance Publication Series 32. Department of Health and Human Services, [place], p.10. These tests were developed and their performance characteristics determined by [facility]'s [facility] ([facility]). They have not been cleared or a pproved by the FDA. [facility] is regulated under CLIA as qualified to perform high complexity testing. These tests are used for clinical purposes. They should not be regarded as investigational or for research. Performed By: #### UTOX2 #### [facility] [address] [place] [id number] Observed: 04/03/2018 Status: F Source: [place] URINE CULTURE 1:10 PM [facility] REPOSITORY Sp. Request/Comment: - Best Practice Alert: To ensure optimal transport conditions and accurate culture results transfer urine specimens to freedman top C and S preservative tube. Culture Result - 50,000 - <100,000 CFU/ml Normal urogenital renata Performed By: #### URCUL #### [email or web address] [address] [place], [place] [address] 50G, 1HR GEST. Collected: 04/03/2018 Status: F [facility] REPOSITORY TYPE CODE TESTS RESULT OUT OF REFERENCE UNITS RANGE LAB GLUP 74-134 mg/dL Glucose 115 Screen, Preg Result Comment: [place] [employer] Obstetricians and Gynecologists (Jones/Ericstan) guidelines state a gestational diabetes mellitus positive screen is made, in women not previously diagnosed with overt diabetes, when the 1 hr plasma glucose level is equal to or above 140 mg/dL. The [facility] Program[facility]ine recommends a 135 mg/dL cutoff. Performed By: #### GLTGST #### [facility] [address] [place], [place] [address] CBC Collected: 04/03/2018 Status: F Source: [place] 11:56 AM [facility] REPOSITORY TYPE CODE TESTS RESULT OUT [...] CBC, SYPHGX, RUBIGG, HBSAG, HIV12C, SEQL1 #### [email or web address] [address] [place], [place] [address] SYPHILIS IGG WITH Collected: 04/03/2018 Status: F Source: [facility] 11:56 AM [facility] REPOSITORY TYPE CODE TESTS RESULT OUT [...] CBC, SYPHGX, RUBIGG, HBSAG, HIV12C, SEQL1 #### [place] [phone] RUBELLA IGG ANTIBODY Collected: 04/03/2018 Status: F Source: [place] 11:56 [facility] REPOSITORY TYPE CODE TESTS RESULT [...] CBC, SYPHGX, RUBIGG, HBSAG, HIV12C, SEQL1 #### [place] [phone] HEPATITIS B SURF. AG Collected: 04/03/2018 Status: F Source: [place] 11:56 [facility] REPOSITORY TYPE CODE TESTS RESULT OUT OF REFERENCE UNITS RANGE LAB HBSAG Negative Hepatitis B Negative Surf. Ag Performed By: #### CBC, SYPHGX, RUBIGG, HBSAG, HIV12C, SEQL1 #### [place] [phone] HIV 12 COMBO (AG/AB) Collected: 04/03/2018 Status: F Source: [place] 11:56 [facility] REPOSITORY TYPE CODE TESTS RESULT OUT OF REFERENCE UNITS RANGE LAB HVAGAB Non Reactive HIV Non Reactive 12 Ag/Ab Result Comment: (NOTE) HIV Information: [place] Rev. Code 3701.243(E): This information has been [...] CBC, SYPHGX, RUBIGG, HBSAG, HIV12C, SEQL1 #### [email or web address] [address], [place] [address] SEQUENT SCRN FIRST Collected: 04/03/2018 Status: F Source: [place] [facility] PATIENTS ONLY 11:56 AM [facility] [facility] REPOSITORY TYPE CODE TESTS RESULT OUT OF REFERENCE UNITS RANGE LAB SE1PAP MoM 0.58 SE1 PAOLO A LAB SE1HCG MoM 1.48 SE1 hCG LAB SE1INT Final result pending second Final trimester SE1 result pending sample Interp second trimester sample LAB SE1SDN SE1 Scrn 1:1300 Rsk Dn Synd LAB SE1ADN 1:830 SE1 Age Rsk Dn Synd LAB SE1STR SE1 Scr <1:44252 Rsk Trsmy18 LAB SE1ATR SE1 Age 1:2500 Rsk Trsmy18 LAB SE1RS View Seq Scrn results in First Trim Scanned Documents link when available. LAB SEQLRV SEQ Staff Reviewed by Review Shaun Stephens MD, PhD ([id number]) Performed By: #### CBC, SYPHGX, RUBIGG, HBSAG, HIV12C, SEQL1 #### [facility] [email or web address] [facility] [place], [place] [address] TYPE AND SCR,PRENATL Collected: 04/03/2018 Status: F Source: [place] 11:56 AM [facility] REPOSITORY TYPE CODE TESTS RESULT OUT OF REFERENCE UNITS RANGE LAB %ABR A ABO/RH(D) POSITIVE LAB % Antibody NEG Screen Performed By: #### TSPN #### [facility] [address] [place], [place] [address] GC/CHLAMYDIA AMPLIF Collected: 03/28/2018 Status: F Source: [place] 11:00 AM [facility] REPOSITORY TYPE CODE TESTS RESULT OUT OF REFERENCE UNITS RANGE LAB GCCTSR GC/Chlam Amp Cervix Source LAB GCAMPL GC Negative Amplification for Neisseria gonorrhoeae by amplification. LAB CLAMPL Chlamydia Negative Amplif for Chlamydia trachomatis by amplification. Performed By: #### GCCT #### [facility] [address] [place], [place] [address] CYTOLOGY Observed: 03/28/2018 Status: C Source: [place] 10:30 AM [facility] REPOSITORY ADDITIONAL PROCEDURES PRESENT ---Abnormal Pap Test - Epithelial Cell Abnormality--- Specimen originated from [facility] Specimen #: [id number] Submitting Physician: CHRISTEN MANCILLA MD SPECIMEN SUBMITTED [...] from every slide are reviewed by a sample display preparer. Rafi Larry M.D. (Electronic Signature) ADDITIONAL PROCEDURE(S) HUMAN PAPILLOMA VIRUS Date Ordered: 04/04/2018 Date Reported: 04/08/2018 Procedure Results and Interpretation Negative for HPV DNA high risk type 16 by PCR. Negative for HPV DNA high risk type 18 by PCR. Negative for HPV DNA high risk types: 31,33,35,39,45,51,52,56,58,59,66,68 by PCR. This test was developed and its performance characteristics determined by [facility] Pathology and Laboratory Medicine [place] ([facility]). It has not been cleared or approved by the FDA. [facility] is regulated under CLIA as qualified to perform high-complexity testing. This test is used for clinical purposes. It should not be regarded as investigational or for research. 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 The Pap Smear is a screening test for cervical cancer. False negative results occur with all screening tests, emphasizing the need for rescreening at recommended intervals, and clinical correlation. HPV W/GENOTYPE Collected: 03/28/2018 Status: F Source: [facility] 10:30 AM [facility] REPOSITORY TYPE [...] developed and its performance characteristics determined by [facility] Pathology and Laboratory Medicine [place] ([facility]). It has not been cleared or approved by the FDA. [facility] is regulated under CLIA as qualified to perform high-complexity testing. This test is used for clinical purposes. It should not be regarded as inv estigational or for research. 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 Patient BMI over 30? Yes Marital Status:Co-habitating Partner: Name: Medardo PAST MEDICAL HISTORY Diagnosis Date - depression PAST SURGICAL HISTORY Procedure Laterality Date - NONE Current Outpatient Prescriptions on File Prior to Visit: Jdbkludj-Uy-Yhp-Fe-FA ( VITAMIN) tab Take 1 tablet by [...] MD PROGRESS Observed: 03/27/2018 Status: COMPLETED Source: [place] 5:06 PM [facility] REPOSITORY [facility] ID: [id number] Author: Luz Gomez RN Service: (none) Author [...] None CNNURSE Observed: 03/27/2018 Status: COMPLETED Source: [place] 2:30 PM [facility] REPOSITORY Nurse Visit (WOOB) DEX MALLORY ([id number]) 1995 F Date Time Provider Department 03/27/18 2:30 PM NURSE PNOB [facility] WSTR WOOB During your visit today, we recorded the following information about you: Luz Gomez RN 03/27/2018 3:15 PM Signed SEQUENTIAL SCREENINGS The [facility] offers sequential screenings for women who are [...] It will require an appointment with our polygraph technician. This is not an ultrasound performed [...] the above symptoms, contact our office at [phone] and ask to speak with a nurse. After hours, you can call doctors registry at [phone] OR call [facility] at [phone] and ask to have the doctor operations intelligence superintendent paged. If you consider this an emergency, [...] treatment is particularly effective in young patients-the [facility] Cord Blood Bank reports a 70 percent [...] issues. What do the experts say? The [place] [employer] encourages philanthropic blood banking [...] baby needs at the moment. The nurse, commissary production supervisor, or physician will then label the samples, [...] AHEAD OF TIME! Public cord-blood masterson--DONATION: [employer] [phone] [facility]'s Placental Blood Program, [facility] Umbilical Cord Blood Bank, Private cord-blood masterson--SAVING FOR YOUR OWN USE: [employer], (I think this is the least expensive) [employer] [phone] [employer], (587) [employer] [place] Cord Blood Bank, [phone] 700-CORD Cells, [phone] [place] Cryobank, Cord Blood Registry, (122) CORDBLOOD [facility], An Internet search may provide you with [...] requested diagnostic testing [Z01.89] Order(s):ROLY PT ED FORM STRIPPER [[id number]] Order #: [id number]: 1 FUTURE ROLY PT ED FORM STRIPPER [[id number]] Order #: [id number]. #:[id number]: [id number] Prescriptions as of 03/27/2018 Sig: VITAMIN,CALCIUM,MINE* [...] instructions from your clinician: SEQUENTIAL SCREENINGS The [facility] offers sequential screenings for women who are [...] It will require an appointment with our polygraph technician. This is not an ultrasound performed [...] the above symptoms, contact our office at [phone] and ask to speak with a nurse. After hours, you can call doctors registry at [phone] OR call [facility] at [phone] and ask to have the doctor operations intelligence superintendent paged. If you consider this an emergency, [...] is particularly effective in young patients- the [facility] Cord Blood Bank reports a 70 percent [...] issues. What do the experts say? The [place] [employer] encourages philanthropic blood banking [...] baby needs at the moment. The nurse, commissary production supervisor, or physician will then label the samples, [...] AHEAD OF TIME! Public cord-blood masterson--DONATION: [employer] [phone] [facility] Placental Blood Program, [facility] Umbilical Cord Blood Bank, Private cord-blood masterson--SAVING FOR YOUR OWN USE: [employer], (I think this is the least expensive) [employer] [phone] [employer], (043) [employer] [place] Cord Blood Bank, [phone] 700-CORD Cells, [phone] [place] Cryobank, Cord Blood Registry, (952) HAVEN Cook, An Internet search may provide you with additional listings. Disposition: Return in 1 day (on 03/28/2018) for New OB with Dr Mancilla. Follow-up and Disposition History Recorded Letter Text Dear Dex Mallory: How to activate your [facility] [employer] Account 1. Visit the [employer] Signup page at [email or web address] 2. Identify yourself using your one-time use activation code: [email or web address] 3. Follow the on-screen prompts to choose [...] information on the Identify Yourself Form at [email or web address] , click Next. Create your login and password, choose a [employer] ID and password that will be easy for you to use, but impossible for anyone else to guess. Pick a security question that will assist you in the event you forget your password the next time you log-on. If you have difficulty activating your account, please call our [employer] helpline at [phone] or toll free at . We hope you enjoy using [employer]! Kindest Regards, [facility] [employer] Team Encounter Status:Closed by LUZ GOMEZ RN on 03/27/18 CBC Collected: 02/28/2018 Status: F Source: [employer] 11:40 AM [facility]ATION REPOSITORY TYPE CODE TESTS [...] MPV 8.0 Performed By: #### CBC, ADIFF, GFR, ANEU, BMP #### [address] [address] .AUTO DIFF Collected: 02/28/2018 Status: F Source: [facility] 11:40 AM [facility] REPOSITORY TYPE CODE TESTS RESULT OUT OF [...] 0.10 Absolute Performed By: #### CBC, ADIFF, GFR, ANEU, BMP #### [address] [address] .NEUABS Collected: 02/28/2018 Status: F Source: [facility] 11:40 AM [facility] REPOSITORY TYPE CODE TESTS RESULT OUT OF REFERENCE UNITS RANGE LAB ANEU(LOINC) 2.85-6.16 10 3/mcL High Neutrophil, 10.00 Absolute Performed By: #### CBC, ADIFF, GFR, ANEU, BMP #### [address] [address] .GFR Collected: 02/28/2018 Status: F Source: [facility] [employer] 11:40 AM [facility] REPOSITORY TYPE CODE TESTS RESULT OUT OF REFERENCE UNITS RANGE LAB GFRAA(LOINC ml/min/1.73 ) sqm GFR 155 [place] Result Comment: GFR Population mean for , [...] square meters Performed By: #### CBC, ADIFF, GFR, ANEU, BMP #### [address] [address] BMP Collected: 02/28/2018 Status: F Source: [facility] 11:40 AM [facility] REPOSITORY TYPE CODE TESTS RESULT OUT OF [...] Lvl 9.9 Performed By: #### CBC, ADIFF, GFR, ANEU, BMP #### [address] [place], [place] [address] UA Collected: 02/28/2018 Status: F Source: [facility] 11:40 AM [facility] REPOSITORY TYPE CODE TESTS RESULT OUT OF [...] UA Leuk Est MODERATE Performed By: #### UAMICAO, UA #### [address] [place], [place] [address] .URINALYSIS MICROSCOPIC Collected: 02/28/2018 Status: F Source: [facility] () 11:40 [facility] REPOSITORY TYPE CODE TESTS RESULT OUT OF RANGE REFERENCE UNITS LAB WBCUA(LOIN None Seen /hpf C) Unknown UA WBC 5-10 LAB RBCUA(LOIN None Seen /hpf C) UA RBC None Seen LAB EPIUA(LOIN None Seen /hpf C) Unknown UA Squam Epithelial LOADED LAB BACUA(LOIN /hpf C) Unknown UA Bacteria Trace Performed By: #### UAMICAO, UA #### [address] [place], [place] [address] ALLERGIES ALLERGIES DATE TYPE / CODE NAME / CODE REACTION SEVERITY SOURCE 03/27/2018 Food/235593 STRAWBERRIES HIVES [facility] 000(SNOMED [facility] [place] [facility]) Repository 03/27/2018 Drug SULFA (SULFONAMIDE HIVES [facility] Class/38681 ANTIBIOTICS) [place] 1003(SNOMED Repository CT) 10/23/2016 Drug Sulfa (Sulfonamide Hives [place] Allergy/416 Antibiotics)/L40903 Community 121149([facility] 0491(RXNO) [facility] ED CT) Repository 10/22/2016 Drug strawberry/Z1072466 Hives Unknown [place] Allergy/416 37(RXNORM) Community 478542([facility] ED CT) Repository ENCOUNTERS ENCOUNTERS ADMIT/DISCHARGE ACCOUNT NUMBER ADMITTING ENCOUNTER LOCATION SOURCE CLASS 10/06/2018/10/06/[id number] ding:WPOUTRo Repository om: [id number] 10/06/2018/10/07/[id number] Repository 09/29/2018/09/30/[id number] Repository 09/25/2018/09/25/[id number] ding:WPOUTRo Repository om: [id number] 09/22/2018/09/23/20 [id number] Ambulatory [address] Repository 09/19/2018/09/24/20 [id number] Ambulatory [address] Repository 09/18/2018 [id number] [facility] ding:LABSPEC Repository 09/17/2018/09/17/[id number] ding:WPOUTRo Repository om: WP020 09/17/2018/09/18/20 [id number] Ambulatory [address] Repository 09/12/2018/09/15/20 [id number] Ambulatory [address] Repository 08/30/2018/11/[id number] Amb[address] [place] Repository 08/29/2018/09/04/20 [id number] Ambulatory [address] [place] Repository 08/11/2018/08/12/20 [id number] Ambulatory [address] [place] Repository 07/04/2018/07/07/20 [id number] Ambulatory [address] [place] Repository 06/26/2018/06/27/20 [id number] Ambulatory [address] [place] Repository 06/12/2018/06/12/20 [id number] Emergency BBuilding:ER [place] [facility] Repository 06/12/2018/06/12/20 [id number] Ambulatory BBuilding:OB [place] [address] URoom: Health 0209Bed: A [facility] Repository 05/23/2018/05/26/20 [id number] Ambulatory [address] [place] Repository 05/23/2018/05/26/20 [id number] Ambulatory [address] [place] Repository 04/25/2018/04/28/20 [id number] Ambulatory [address] [place] Repository 04/03/2018 [id number] Ambulatory [facility] [place] Repository 04/03/2018/04/08/20 [id number] Ambulatory [address] [place] Repository 03/28/2018/04/01/20 [id number] Ambulatory [address] [place] Repository 03/27/2018/04/01/20 [id number] Ambulatory [address] [place] Repository 03/04/2018/03/04/20 [id number] Emergency BBuilding:ER [place] [facility] Repository 02/28/2018/02/29/20 [id number] Emergency BBuilding:ER [place] [facility] Repository PAYERS PAYERS ENCOUNTER GUARANTOR PAYER SUBSCRIBER SOURCE 10/06/2018 DEX Primary DEX MALLORY[address] Insurance:Amanda PHAN: Community MARKET y Number: [id number] [id number] Repository [address]Pqo: ([phone]) Date:5687-30-20ZT [phone] ([address] [address]UT: 10/06/2018 Secondary NOT GIVENUNK Anton Insurance:SELF PAY [facility] Effective Repository Date:2018-10-06 09/25/2018 DEX Primary DEX JERRYSON[address] Insurance:MOLINAPolic DODSONDOB: Community MARKET y Number: [id number] [place], [place] [id number] Repository [address]Bxo: 330) Date:9463-18-45UK [phone] () [address] [place] [address]SX: 09/25/2018 Secondary NOT GIVENUNK Anton Insurance:SELF PAY [facility] Number: Effective Repository Date:2018-09-25 09/18/2018 DEX Primary DEX JERRYSON[address] Insurance:MOLINAPolic DODSONDOB: Community MARKET y Number: [id number] [place], [place] [id number] Repository [address]Qur: 330) Date:3389-54-93SH [phone] () [address] [place] [address]HQ: 09/18/2018 Secondary NOT GIVENUNK Burns Insurance:SELF PAY [facility] Number: Effective Repository Date:2018-09-18 09/17/2018 DEX Primary DEX [id number] Insurance:MOLINAPolic DODSONDOB: Community MARKET y Number: [id number] [place], [place] [id number] Repository [address]Vkw: (395) Date:0394-43-34XI [phone] () [address] [place] [address]MJ: 09/17/2018 Secondary NOT GIVENUNK Anton Insurance:SELF PAY [facility] Number: Effective Repository Date:2018-09-17 06/12/2018 DEX J [facility]:VEGA DODSONDOB: [facility] [id number] N MEDICAIDPoly [id number] Repository [address] Number: [address] [place], [place] [id number] [address]~YASMIN.DODSO Date:2018-06-12Tel: (330) [email or web address]: [phone] Name:XPO Box (HP)Tel: (000) (HP)Tel: ([phone] ClaimLong 000-0000 (WP) [phone] (WP) [place], [place] [address]OF: 06/12/2018 DEX J Primary DEX [facility]: [facility] [id number] Repository [address] Number: N [address] [place] [id number] [address]~YASMIN.DODSO Date:2018-06-12Tel: (330) [email or web address]: [phone] Name:XPO Box (HP)Tel: (000) (HP)Tel: ([phone] ClaimLong 000-0000 (WP) [phone] (WP) [place], [place] [address]MY: 03/04/2018 DEX J Primary DEX [facility]: Insurance:VEGA CLARITZASONDOB: [facility] N [facility] [id number] Repository [address] Number: [address] [place] [id number] [address]~YASMIN.DODSO Date:2018-03-04Tel: (330) [email or web address]: [phone] Name:XPO Box (HP)Tel: (000) (HP)Tel: [phone] ClaimLong [phone] [phone] () [place], [place] [address]WA: 02/28/2018 DEX Tellez Primary DEX Telelz [facility]: Insurance:GARY MORFINB: [facility] [id number] N MEDICAIDPolicy [id number] Repository [address]ICA [address] Number: [place] [id number] [address]~YASMINMaeGLEN Date:2018-02-28 28[address]Uwq: 330 [email or web address]: [phone] Name:SALLYO Box (HP)Tel: (157) (HP)Tel: [phone] ClaimLong 000-0000 (FR) [phone] () [place], [place] [address]XL:
== END ==
PROVIDERS: Referring Provider Advanced Practice Midwife; Visit Provider Advanced Practice Midwife
DX: O26.893 Other specified pregnancy related conditions, third trimester (principal); R51 Headache; Z3A.36 36 weeks gestation of pregnancy
CPT/HCPCS: 81050; 82570; 84156

== ENCOUNTER 2018-09-25 10:30 | Outpatient (CLI) | payer MEDICAID, SELFPAY ==
[2018-09-25 10:45] VITALS: BMI 40.6
[2018-09-25] MEDS: Lactated Ringers 1,000 ML 500 ML IV (10:45)
[2018-09-25] MEDS: Ondansetron 4 MG/2 ML Vial IV (11:08)
[2018-09-25 11:13] LABS: Hematocrit 30.4 % (37-47); Hemoglobin 10.3 g/dl (12.0-15.0); Mean Corp Hgb Conc 33.9 g/gl (32-36); Mean Corpuscular Hgb 26.7 pg (27.0-32.0); Mean Corpuscular Volume 78.8 fL (81-99); Mean Platelet Vol. 9.3 fl (6.2-12.0); Platelet Count 218 K/mm3 (150-450); RBC Distribution Width CV 14.7 % (11.6-14.6); RBC Distribution Width SD 41.4 fl (35.1-43.9); Red Blood Count 3.86 M/mm3 (4.2-5.4); Scan Indicated on CBC? Y/N NO; White Blood Count 6.8 K/mm3 (4.4-11.0)
[2018-09-25 11:18] LABS: Partial Thromboplast Time 26.9 Seconds (24.1-36.2); Prothrombin Time (Protime)PT. 13.3 SECONDS (11.7-14.9)
[2018-09-25 11:22] LABS: AST(SGOT) 11 U/L (15-37); Alanine Aminotransfer ALT/SGPT 11 U/L (13-56); Creatinine, Serum 0.61 mg/dL (0.55-1.02); EST Glomerular Filtration Rate 129 mL/min (>60); Est Glom Filt Rate - Afr Amer 156 mL/min (>60); Estimated Creatinine Clearance 124.92 ml/min; Uric Acid 4.4 mg/dL (2.6-6.0)
[2018-09-25 12:02] LABS: Protein, Urine (Random) 20.7 mg/dL (<11.9); Protein:Creat Ratio 183 mg/g CRE (0-200)
--- NOTE | 2018-09-25 20:47 | OB.TRI.HP_ITS ---
- Problem List (1) Dehydration during Status: Acute (2) Headache Status: Acute Qualifiers: Headache type: other headache syndrome Qualified Code(s): G44.89 - Other headache syndrome History of Present Illness Date of Service: 09/25/18 Was patient seen by the physician?: Yes Reason For Visit: R/O PREECLAMPSIA Date of Service: 09/25/18 Final CINDI: 10/12/18 Final CINDI Source: US <20 weeks Gestational age: 37 Weeks and 4 Days History of Present Illness: Patient reports she was seen in office on Saturday for intractable headache. At that time patient was prescribed 1x dose of Fiorcet and headache went away. Over the last 2 days baby has not been able to keep food down easily and today patient has not been able to easily keep liquids down. Since then NORMAN has worsened and patient is rating it a 6-7/10. NORMAN is localized unilaterally behind Lt. eye. Patient also notes slight blurred vision behind that eye. Patient took 1000g Tylenol this morning at ~0830 without improvement of NORMAN or resolution of symptoms. Patient denies RUQ pain, denies abdominal pain, denies SOB or chest pain. Allergies Sulfa (Sulfonamide Antibiotics) Allergy (Intermediate, Verified 10/23/16 07:36) Hives strawberry Allergy (Verified 10/22/16 14:45) Hives - Pertinent Past Medical History Medical History: Past Medical History (Last Updated 09/17/18 @ 20:33 by Darline Avila DO) Anemia History of depression Laboratory Studies: Laboratory Tests 09/25/18 09/25/18 09/25/18 Range/Units 10:45 10:45 10:45 WBC (4.4-11.0) K/mm3 RBC (4.2-5.4) M/mm3 Hgb (12.0-15.0) g/dl Hct (37-47) % MCV (81-99) fL MCH (27.0-32.0) pg MCHC (32-36) g/gl RDW (11.6-14.6) % RDW Differential (35.1-43.9) fl Plt Count (150-450) K/mm3 MPV (6.2-12.0) fl PT 13.3 (11.7-14.9) SECONDS INR 1.0 APTT 26.9 (24.1-36.2) Seconds Creatinine 0.61 (0.55-1.02) mg/dL Estim Creat Clear Calc 124.92 ml/min Est GFR (MDRD) Af Amer 156 (>60) mL/min Est GFR (MDRD) Non-Af 129 (>60) mL/min Uric Acid 4.4 (2.6-6.0) mg/dL AST 11 L (15-37) U/L ALT 11 L (13-56) U/L U Random Total Protein 20.7 H (<11.9) mg/dL Urine Creatinine 113.00 (NO RANGE EST.) mg/dL Protein/Creatinin Ratio 183 (0-200) mg/g CRE 09/25/18 Range/Units 10:45 WBC 6.8 (4.4-11.0) K/mm3 RBC 3.86 L (4.2-5.4) M/mm3 Hgb 10.3 L (12.0-15.0) g/dl Hct 30.4 L (37-47) % MCV 78.8 L (81-99) fL MCH 26.7 L (27.0-32.0) pg MCHC 33.9 (32-36) g/gl RDW 14.7 H (11.6-14.6) % RDW Differential 41.4 (35.1-43.9) fl Plt Count 218 (150-450) K/mm3 MPV 9.3 (6.2-12.0) fl PT (11.7-14.9) SECONDS INR APTT (24.1-36.2) Seconds Creatinine (0.55-1.02) mg/dL Estim Creat Clear Calc ml/min Est GFR (MDRD) Af Amer (>60) mL/min Est GFR (MDRD) Non-Af (>60) mL/min Uric Acid (2.6-6.0) mg/dL AST (15-37) U/L ALT (13-56) U/L U Random Total Protein (<11.9) mg/dL Urine Creatinine (NO RANGE EST.) mg/dL Protein/Creatinin Ratio (0-200) mg/g CRE Review of Systems Constitutional: Reports: Anorexia Eyes: Reports: Blurred vision - Lt. > Rt. HEENT: Reports: Visual Changes Gastrointestinal: Reports: Abdominal Pain, Nausea Neurological: Reports: Blurred vision - Lt. > Rt. Physical Exam Vitals: See nursing note for vitals - VSS, Afebrile General: Alert, Oriented x3, No apparent distress HEENT: Atraumatic, PERRLA, EOMI, Normocephalic. Negative for: Thyromegaly, Lymphadenopathy Cardiovascular: Regular rate, Regular Rhythm Lungs: Normal air movement Abdomen: Soft, Non Tender, No Hepato-splenomegaly, Gravid, No hernias noted Extremities:: No edema Neurological: Cranial nerves II-XII grossly intact, Deep Tendon Reflexes 2+/4 and Symmetrical, Neuro grossly intact, Motor Exam 5/5 strength throughout, Muscle tone normal, Sensory exam intact to light touch and pain, Coordination normal WAREHOUSE DISTRIBUTION MANAGER: Normal external genitalia. Negative for: Vulvar lesions Estimated gestational size: Appropriate for gestational size - SVE deferred Presentation: Cephalic NST - FHR Rate Baby A Baseline: 125 Variability:: Moderate Accelerations:: 15 x 15 Decelerations:: None NST Reactive:: Yes, Appropriate for gestational age FHR Category:: Category I Uterine Activity:: No contractions noted on tocometer Impression/Plan 23 y/o @ 37+4weeks, Headache in d/t dehydration, Category I FHT P: 1) Pre-eclampsia bloodwork WNL - no evidence of pre-eclampsia 2) After administration of 1 L LR, patient reports NORMAN decreased to 2/10 3) Encourage use of Tylenol 1000mg PO q 8 hours 4) Labor precautions and [facility] teaching done 5) RTC as scheduled for next visit. Loan MOLINA
== END 2018-09-25 13:05 | disposition home or self-care (01) ==
LOC: WPOUT 10:32 → WP 10:33
PROVIDERS: Referring Provider Obstetrics & Gynecology; Visit Provider Obstetrics & Gynecology
DX: O26.893 Other specified pregnancy related conditions, third trimester (principal); E86.0 Dehydration; R51 Headache; Z3A.37 37 weeks gestation of pregnancy
CPT/HCPCS: 96361; 96374; 36415; 59025; 59050; 82565; 82570; 84156; 84450; 84460; 84550; 85027; 85610; 85730; 99218; J7120; G0378; J2405

== ENCOUNTER 2018-10-06 16:55 | Outpatient (CLI) | payer MEDICAID, SELFPAY ==
[2018-10-06 17:05] VITALS: BMI 41.2
[2018-10-06 18:08] LABS: AST(SGOT) 8 U/L (15-37); Alanine Aminotransfer ALT/SGPT 11 U/L (13-56); Creatinine, Serum 0.54 mg/dL (0.55-1.02); EST Glomerular Filtration Rate 150 mL/min (>60); Est Glom Filt Rate - Afr Amer 182 mL/min (>60)
[2018-10-06 18:10] LABS: Partial Thromboplast Time 26.4 Seconds (24.1-36.2)
[2018-10-06 18:11] LABS: Hematocrit 30.8 % (37-47); Hemoglobin 10.4 g/dl (12.0-15.0); Mean Corp Hgb Conc 33.8 g/gl (32-36); Mean Corpuscular Hgb 26.9 pg (27.0-32.0); Mean Corpuscular Volume 79.8 fL (81-99); Mean Platelet Vol. 9.6 fl (6.2-12.0); Platelet Count 259 K/mm3 (150-450); RBC Distribution Width CV 14.5 % (11.6-14.6); Red Blood Count 3.86 M/mm3 (4.2-5.4)
[2018-10-06 18:19] LABS: Scan Indicated on CBC? Y/N NO
[2018-10-06 18:39] LABS: Protein:Creat Ratio 170 mg/g CRE (0-200)
[2018-10-07 19:33] LABS: 24 Hour Urine Protein 289.5 mg/24HR (<150 MG/24HR); 24HR. UA Prot. Total Volume 1500 mL; Urine Protein (24 Hour) 19.3 mg/dL (<11.9)
--- NOTE | 2018-10-10 20:21 | OB.TRI.NOTE ---
History of Present Illness Reason For Visit: R/O PREECLAMPSIA Final CINDI Source: US <20 weeks Allergies Sulfa (Sulfonamide Antibiotics) Allergy (Intermediate, Verified 10/23/16 07:36) Hives strawberry Allergy (Verified 10/22/16 14:45) Hives - Pertinent Past Medical History Medical History: Past Medical History (Last Updated 09/17/18 @ 20:33 by Darline Avila DO) Anemia History of depression Laboratory Studies: Laboratory Tests 10/06/18 10/06/18 10/06/18 Range/Units 18:20 18:10 17:25 WBC (4.4-11.0) K/mm3 RBC (4.2-5.4) M/mm3 Hgb (12.0-15.0) g/dl Hct (37-47) % MCV (81-99) fL MCH (27.0-32.0) pg MCHC (32-36) g/gl RDW (11.6-14.6) % RDW Differential (35.1-43.9) fl Plt Count (150-450) K/mm3 MPV (6.2-12.0) fl PT (11.7-14.9) SECONDS INR APTT (24.1-36.2) Seconds Creatinine 0.54 L (0.55-1.02) mg/dL Est GFR (MDRD) Af Amer 182 (>60) mL/min Est GFR (MDRD) Non-Af 150 (>60) mL/min Uric Acid 4.0 (2.6-6.0) mg/dL AST 8 L (15-37) U/L ALT 11 L (13-56) U/L U Random Total Protein 25.0 H (<11.9) mg/dL Urine Collection Time 24.0 (24.0) HOURS Timed Urine Volume 1500 mL Urine Creatinine 147.00 (NO RANGE EST.) mg/dL Ur Total Protein 24 Hr 289.5 H (<150 MG/24HR) mg/24HR Protein/Creatinin Ratio 170 (0-200) mg/g CRE Urine Total Protein 19.3 H (<11.9) mg/dL 10/06/18 10/06/18 Range/Units 17:25 17:25 WBC 11.0 (4.4-11.0) K/mm3 RBC 3.86 L (4.2-5.4) M/mm3 Hgb 10.4 L (12.0-15.0) g/dl Hct 30.8 L (37-47) % MCV 79.8 L (81-99) fL MCH 26.9 L (27.0-32.0) pg MCHC 33.8 (32-36) g/gl RDW 14.5 (11.6-14.6) % RDW Differential 40.0 (35.1-43.9) fl Plt Count 259 (150-450) K/mm3 MPV 9.6 (6.2-12.0) fl PT 13.0 (11.7-14.9) SECONDS INR 1.0 APTT 26.4 (24.1-36.2) Seconds Creatinine (0.55-1.02) mg/dL Est GFR (MDRD) Af Amer (>60) mL/min Est GFR (MDRD) Non-Af (>60) mL/min Uric Acid (2.6-6.0) mg/dL AST (15-37) U/L ALT (13-56) U/L U Random Total Protein (<11.9) mg/dL Urine Collection Time (24.0) HOURS Timed Urine Volume mL Urine Creatinine (NO RANGE EST.) mg/dL Ur Total Protein 24 Hr (<150 MG/24HR) mg/24HR Protein/Creatinin Ratio (0-200) mg/g CRE Urine Total Protein (<11.9) mg/dL NST - FHR Rate Baby A Baseline: 130 Variability:: Moderate Accelerations:: 15 x 15 Decelerations:: None NST Reactive:: Yes Uterine Activity:: Irregular Impression/Plan A:Headache P: 1) BP normal range. Labs normal 2) Pre-e warning signs reviewed. 3) D/C home
--- OUTSIDE RECORDS SUMMARY | 2019-01-08 09:38 | XMS RPT_ITS ---
:1995 Author Organization OHIP Support Name Relationship Address Phone ELIA MALLORY Unavailable [address] + [place] [address] MCDONALDS Unavailable [address] + [place] [address] CATARINA PIZANO Unavailable [address] + [place] [address] ELIA MALLORY Unavailable [address] + [place] [address] MCDONALDS Unavailable [address] + [place] [address] CATARINA PIZANO Unavailable [address] + [place] [address] ELIA MALLORY Unavailable [address] + [place] [address] MCDONALDS Unavailable [address] + [place] [address] CATARINA PIZANO Unavailable [address] + [place] [address] ELIA MALLORY Unavailable [address] + [place] [address] MCDONALDS Unavailable [address] + [place] [address] CATARINA PIZANO Unavailable [address] + [place] [address] ELIA MALLORY Unavailable [address] + [place] [address] MCDONALDS Unavailable [address] + [place] [address] CATARINA PIZANO Unavailable [address] + [place] [address] HARINDER, MEDARDO Unavailable Unavailable + HARINDER, MEDARDO Unavailable Unavailable + HARINDER, OLYVER Unavailable [address] + [place] [address] HARINDER, MEDARDO Unavailable Unavailable + HARINDER, MEDARDO Unavailable Unavailable + HARINDER, OLYVER Unavailable [address] + [place] [address] HARINDER, MEDARDO Unavailable Unavailable + HARINDER, MEDARDO Unavailable Unavailable + HARINDER, OLYVER Unavailable [address] + [place] [address] HARINDER, MEDARDO Unavailable Unavailable + HARINDER, MEDARDO Unavailable Unavailable + HARINDER, OLYVER Unavailable [address] + [place] [address] Care Team Providers Name Role Phone CHRISTEN MANCILLA Attending Unavailable ARAMIS SALOMON Attending Unavailable CHRISTEN MANCILLA Referring Unavailable CHRISTEN MANCILLA Referring Unavailable CHRISTEN MANCILLA Attending Unavailable CHRISTEN MANCILLA Referring Unavailable RAYMOND SULTANA Attending Unavailable CHRISTEN MANCILLA Referring Unavailable LOAN STAPLES (CNM) Attending Unavailable CHRISTEN MANCILLA Referring Unavailable DENNIS SHER ([facility]) Attending Unavailable CHRISTEN MANCILLA Referring Unavailable LOAN STAPLES (CNM) Attending Unavailable CASSIE EDGE Attending Unavailable JOSE ARMANDO KRAMER (CNM) Attending Unavailable AUSTIN, ROSALINDA Referring Unavailable JOSE ARMANDO KRAMER (CNM) Attending Unavailable JOSE ARMANDO KRAMER (CNM) Attending Unavailable JOSE ARMANDO KRAMER (CNM) Attending Unavailable AUSTIN, ROSALINDA Attending Unavailable JOSE ARMANDO KRAMER (CNM) Attending Unavailable AUSTIN, ROSALINDA Attending Unavailable AUSTIN, ROSALINDA Attending Unavailable SHERYL COHN, CESAR Hwang Attending Unavailable PHYSICIAN, NONE Primary Care Unavailable FERMÍN HERNANDEZ MD Attending Unavailable PHYSICIAN, NONE Primary Care Unavailable DR. NOELLE ARANDA DO Attending Unavailable PHYSICIAN, NONE Primary Care Unavailable LEANNE SEGOVIA MD Attending Unavailable PHYSICIAN, NONE Primary Care Unavailable Brittany Barajas Attending Unavailable Karl, Brittany Referring Unavailable Wiswell, Rosalinda Admitting Unavailable Wiswell, Rosalinda Attending Unavailable Wiswell, Rosalinda Referring Unavailable Williams, Jose Armando Attending Unavailable Williams, Jose Armando Referring Unavailable Nely Emmanuel Primary Care Unavailable Kramer, Josea Rmando Attending Unavailable Kramer, Jose Armando Referring Unavailable Wiswell, Rosalinda Attending Unavailable Wiswell, Rosalinda Referring Unavailable PROBLEMS PROBLEMS DATE TYPE CONDITION / CODE ATTENDING STATUS SOURCE 09/24/2018 Unknown O26.893 - Other Jose Armando Kramer Active [facility] related Hospital conditions, third Repository trimester / O26.893(ICD-10) 08/30/2018 Active 31 weeks gestation NA Active [facility] of / [facility] [place] Z3A.31(ICD-10) Repository 04/03/2018 Active Encounter for Active [facility] supervision of [facility] [place] other normal Repository , unspecified trimester / Z34.80(ICD-10) 04/03/2018 Active Encounter for Active [facility] [place] screening for Repository nuchal translucency / Z36.82(ICD-10) 03/27/2018 Active Unknown / NA Active [facility] UNK(Unknown) [facility] [place] Repository PROCEDURES PROCEDURES No Procedure Records FoundRESULTS RESULTS PROGRESS Observed: 10/15/2018 Status: COMPLETED Source: [place] 3:49 PM [facility] REPOSITORY HNO ID: [id number] Author: Yohana Garcia LPN Service: (none) Author Type: (none) Type: Progress Notes Filed: 10/15/2018 3:50 PM Note Text: Pt delivered via at [facility] on 10/13/18 per Jose Armando Kramer CNM. See OB Outcome delivery. Yohana Garcia LPN HISTORY AND PHYSICAL Observed: 10/15/2018 Status: F Source: [place] EXAM 8:39 AM [facility] REPOSITORY [facility] Medical Records Department [address] [place] [address] History and Physical 10/13/18 1233 MR#: [id number] Acct: [id number] Name: DEX MALLORY Rep #: [id number] : 1995 23 From: Jose Armando Kramer CNM PCP: Status: ADM IN Y Location: [id number] - Problem List (1) Active labor at term Status: Acute (2) Post-dates Status: Acute (3) Thick meconium stained amniotic fluid Status: Acute (4) Obesity affecting Status: Acute (5) History of depression Status: Acute (6) Iron deficiency anemia during Status: Acute History Date of Admission: 10/23/16 Final CINDI: 10/12/18 Final CINDI Source: LMP Gestational age: 40 Weeks and 1 Days History of this : This is a 23 year-old, G [2], P [1001], at 40 weeks 1 Day Gestational Age. Presented to office with contractions and cervical exam revealed 6cm dilation. Sent to L AND D for active labor. Medical History: Medical History (Last Updated 09/17/18 @ 20:33 by Rosalinda Avila DO) Anemia D64.9 History of depression Z87.59, Z86.59 Allergies Sulfa (Sulfonamide Antibiotics) Allergy (Intermediate, Verified 10/13/18 10:52) Hives strawberry Allergy (Verified 10/13/18 10:52) Hives Home Medications: Home Medications Acetaminophen/Diphenhydramine [Tylenol Pm Ex-Strength Caplet] 1 each PO PRN PRN 10/23/16 Ferrous Sulfate [Iron] 325 mg PO DAILY 09/17/18 Vits [Prenatabs FA] 1 tablet PO DAILY 09/17/18 Sertraline HCl [Zoloft] 50 mg PO DAILY 09/17/18 Smoking Status: Never smoker Alcohol: None Substance Use Type: Marijuana Heart Tracin, moderate variability, accels, no decels, Category 1 TOCO: every 2-3 minutes, strong History Past Pregnancies: Past Pregnancies Delivery Name GA/Weeks Outcome Route WeiInfant GeLabor LenAnesthesiDelivery Provider FOB Date ght nder [facility] a Location Labs: RPR Negative GBS negative HIV negative HBsAG negative Rubella Immune GC/CT negative A positive, antibody screen negative Expected Infant Delivery Method: Spontaneous Vaginal Review of Systems Constitutional: Denies: Chills, Fever, Weight Change Eyes: Denies: Blurred vision HEENT: Denies: Head Aches, Sinus Congestion, Sinus Drainage Cardiovascular: Denies: Chest Pain Respiratory: Denies: Cough, Shortness of breath at rest, Sputum production Gastrointestinal: Reports: Abdominal Pain. Denies: Nausea, Vomiting Genitourinary: Denies: Dysuria Musculoskeletal: Denies: Joint Pain, Joint Tenderness Skin: Denies: Rash, Wounds Neurological: Denies: Numbness, Tingling, Focal weakness Psychiatric: Denies: Anxiety, Depression, Homicidal Ideations, Suicidal Ideations Physical Exam General: Alert, Oriented x3, Cooperative HEENT: Atraumatic, Normocephalic Cardiovascular: Regular rate, Regular Rhythm, No murmurs Lungs: Clear to auscultation, Normal air movement, No rhonchi, No wheeze Abdomen: Bowel Sounds Present, Gravid Extremities:: No edema Neurological: Deep Tendon Reflexes 2+/4 and Symmetrical. 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: Normal external genitalia Estimated gestational size: Appropriate for gestational size Presentation: Cephalic Cervix Dilation (cm): 7 - AROM for moderate amount of thick meconium stained fluid Station: -2 Effacement (%): 80 Assessment/Plan All Active Problems (Last Updated 09/17/18 @ 20:33 by Rosalinda Avila DO) Headache (Acute) Dehydration during (Acute) Active labor at term (Acute) Post-dates (Acute) Thick meconium stained amniotic fluid (Acute) Obesity affecting (Acute) History of depression (Acute) Iron deficiency anemia during (Acute) This is a 23 year-old, G [2], P [1001], at 40 weeks gestational age. A: Active Labor Category 1 FHT P: 1) Admit to L AND D Routine orders 2) AROM for meconium fluid, primary school principal to be present for delivery 3) Desires natural childbirth, bedside labor support provided 4) notified of admission and collaborative physician for care. Jose Armando Kramer APRN, TAMARA 10/13/18 1309 <Electronically signed by Jose Armando Kramer CNM> Date Jose Armando Kramer CNM 10/15/18 0132<Electronically signed by Rosalinda Avila DO> Cosigner Signature: Date (if applicable) Rosalinda Avila DO CC: VITALIY Kramer; Rosalinda Avila DO Signed DISCHARGE INSTRUCTION Observed: 10/15/2018 Status: F Source: [place] 8:37 AM [facility] REPOSITORY [facility] Medical Records Department [address] [place] [address] Instructions for Home/Discharge Instructions 10/15/18 0829 MR#: [id number] Acct: [id number] Name: DEX MALLORY Rep #: [id number] : 1995 23 From: Rosalinda Avila DO PCP: Status: ADM IN Discharge Diet: No Restrictions Discharge Activity: Return to Normal Activity, May Shower May resume sexual activity in: 4-6 weeks Weight Bearing Status: Full weight bearing Lifting Restrictions: None Call your doctor if you observe: Fever of 101 or Higher, Inability to urinate, Inability to have a bowel movement, Using more than one pad per hour, Shortness of breath, Chest pain, Calf discomfort, Uncontrolled pain Cleanse incision/area with: Soap AND Water Instructions: After a Vaginal Additional Instructions: If you experience any of the following, contact your healthcare provider. * Bleeding that soaks a pad every hour for 2 hours * Fever 100.4 or higher * Unrelieved incision or abdominal pain * Swelling, redness, discharge or bleeding from your incision or episiotomy site * Your incision begins to separate * Problems urinating (including inability to urinate or burning while urinating). * Visual changes * Severe headache * Flu-like symptoms * Pain or redness in one of both of your breasts * Pain, warmth, tenderness or swelling in your legs, especially the calf area * Frequent nausea and vomiting * Symptoms of depression or anxiety If you experience any of the following, call 911 or go to the nearest Emergency Room. * Chest pain * Problems breathing * Seizure activity * Partial or complete paralysis of a body part, slurred speech, weakness or drooping of the face, or a sudden inability to walk or hold your balance Allergies/Adverse Reactions: Allergies Sulfa (Sulfonamide Antibiotics) Allergy (Intermediate, Verified 10/13/18 10:52) Hives strawberry Allergy (Verified 10/13/18 10:52) Hives Medications to take at Discharge Acetaminophen/Diphenhydramine [Tylenol Pm Ex-Strength Caplet] 1 each PO PRN PRN 10/23/16 Ferrous Sulfate [Iron] 325 mg PO DAILY 09/17/18 Vits [Prenatabs FA] 1 tablet PO DAILY 09/17/18 Sertraline HCl [Zoloft] 50 mg PO DAILY 09/17/18 When: In 4-6 weeks for visit. And in 1-2 weeks if you desire. Test Results: Test results from this visit will be discussed in further detail at your follow-up appointment, if applicable. 10/15/18 0837 <Electronically signed by Rosalinda Avila DO> Date Rosalinda Avila DO CC: Signed OPERATIVE REPORT Observed: 10/13/2018 Status: F Source: [place] 2:23 PM [facility] REPOSITORY [facility] Medical Records Department [address] [place] [address] Operative Report 10/13/18 1414 MR#: [id number] Acct: [id number] Name: DEX MALLORY Rep #: [id number] : 1995 23 From: Jose Armando Kramer CNM PCP: Status: ADM IN Location: [id number] - Problem List (1) Active labor at term Status: Acute (2) Post-dates Status: Acute (3) Thick meconium stained amniotic fluid Status: Acute (4) Obesity affecting Status: Acute (5) History of depression Status: Acute (6) Iron deficiency anemia during Status: Acute (7) Vaginal delivery Status: Acute (8) First degree perineal laceration Status: Acute Vaginal Delivery Maternal Presentation: Active Labor Amniotic Membrane Rupture Type: Artificial - Thick meconium stained fluid Amniotic Fluid Description: Thick meconium Final CINDI: 10/12/18 Gestational age: 40 Weeks and 1 Days Date of Procedure: 10/13/18 Pre-Operative Diagnosis: Active Labor Post-Operative Diagnosis: Surgery/ Procedure Performed: Spontaneous Vaginal Delivery Type of Anesthesia: None Description of Procedure: Progressed to complete with strong urge to push. Land Appraiser and nursery staff called to delivery. of viable female infant over 1st degree perineal laceration unmedicated. APGARS 8,9 with weight pending. delivered and placed skin to skin on maternal abdomen. Mouth and nares suctioned for secretions, stimulation and strong cry. Pitocin started for active 3rd stage management. Cord clamped and cut after pulsations ceased by FOB. Placenta delivered via maternal effort, intact via lena, 3 vessel cord. Perineum inspected and revealed 1st degree perineal laceration. Repaired with 3.0 vicryl and 1% Lidocaine, tolerated well. Fundus firm 400ml EBL. Continue slow trickle of blood. Cytotec 800mcg per rectum. initiated. Mom and baby stable, family bonding well. notified of delivery. Presentation: Vertex Placental Delivery Description: Spontaneous Placenta Disposition: [facility] Cord Vessel Description: 3 Vessels Cord Entanglement: None Estimated Blood Loss: 400ml Infant A gender: Female (1 minute): 8 (5 minute): 9 Episiotomy Description: None Laceration: Perineal Extension/lac, 1st degree Medications given after delivery: IV Pitocin, - - 800mcg Cytotec per rectum for continued trickle of blood. Fundus firm. 10/13/18 1423 <Electronically signed by Jose Armando Kramer CNM> Date Jose Armando Kramer CNM CC: VITALIY Kramer; Rosalinda Avila DO Signed CBC-COMPLETE BLOOD CNT Collected: 10/13/2018 Status: F Source: [place] NO DIFF 10:10 AM [facility] REPOSITORY TYPE CODE TESTS RESULT OUT OF RANGE REFERENCE UNITS LAB L100.1000 4.4-11.0 K/mm3 Normal WBC 9.9 LAB L100.1200 4.2-5.4 M/mm3 Low RBC 4.08 LAB L100.1300 12.0-15.0 g/dl Low HGB 10.8 LAB L100.1400 37-47 % Low HCT 32.1 LAB L100.1500 81-99 fL Low MCV 78.7 LAB L100.1600 27.0-32.0 pg Low MCH 26.5 LAB L100.1700 32-36 g/gl Normal MCHC 33.6 LAB L100.1810 11.6-14.6 % High RDW CV 14.9 LAB L100.1820 35.1-43.9 fl Normal RDW SD 42.8 LAB L100.1900 150-450 K/mm3 Normal PLT 209 LAB L100.2000 6.2-12.0 fl Normal MPV 9.3 Performed By: #### L100.0500 #### [facility] [address] [place], [address] TYPE AND SCREEN Collected: 10/13/2018 Status: F Source: [place] 10:10 AM [facility] REPOSITORY Order Comment: Reason for Type AND Screen/Red Cells: ROUTINE TYPE CODE TESTS RESULT OUT OF RANGE REFERENCE UNITS LAB B10.0800 A Normal BLOOD TYPE GEL POSITIVE LAB B100.4000 Normal Antibody NEGATIVE Screen Performed By: #### B101.7450 #### [facility] [address], [place], [address] PROTEIN, URINE 24HR Collected: 10/06/2018 Status: F Source: [place] 6:20 PM [facility] REPOSITORY TYPE CODE TESTS RESULT OUT OF RANGE REFERENCE UNITS LAB L501.1850 24.0 HOURS Normal UR COLLECT 24.0 TIME LAB L501.1875 mL Normal UR TOTAL 1500 VOLUME LAB L501.1900 <11.9 mg/dL High URINE PROTEIN 19.3 LAB L501.1925 <150 MG/24HR mg/24HR High 24hr UR 289.5 PROTEIN Performed By: #### L500.9000 #### [facility] [address] [place], [address] PROTEIN+CREATININE Collected: Status: F Source: [place] RATIO,URINE 10/06/2018 6:10 PM [facility] REPOSITORY TYPE CODE TESTS RESULT OUT OF RANGE REFERENCE UNITS LAB L501.1200 NO RANGE EST. mg/dL Normal UR CREAT 147.00 LAB L501.1930 <11.9 mg/dL High 25.0 PROTEIN,UR.R AN. LAB L501.1940 0-200 mg/g CRE Normal PROT:CRE 170 RATIO Performed By: #### L501.0900 #### [facility] [address] [place], [address] SERUM CREATININE AND Collected: 10/06/2018 Status: F Source: [place] GFR 5:25 PM [facility] REPOSITORY TYPE CODE TESTS RESULT OUT OF [...] By: #### L501.1105, L501.1400, L501.4100, L501.4405 #### [facility] [address] [place], [address] URIC ACID Collected: 10/06/2018 Status: F Source: [place] 5:25 PM [facility] REPOSITORY TYPE CODE TESTS RESULT OUT OF RANGE REFERENCE UNITS LAB L501.1400 2.6-6.0 mg/dL Normal URIC 4.0 Result Comment: The drugs N-Acetylcysteine and Metamizole may falsely depress this assay. Performed By: #### L501.1105, L501.1400, L501.4100, L501.4405 #### [facility] [address] [place], [address] AST(SGOT) Collected: 10/06/2018 Status: F Source: [place] 5:25 PM [facility] REPOSITORY TYPE CODE TESTS RESULT OUT OF RANGE REFERENCE UNITS LAB L501.4100 15-37 U/L Low AST 8 Performed By: #### L501.1105, L501.1400, L501.4100, L501.4405 #### [facility] [address] [place], [address] ALANINE AMINOTRANSFERAS Collected: 10/06/2018 Status: F Source: [place] (SGPT) 5:25 PM [facility] REPOSITORY TYPE CODE TESTS RESULT OUT OF RANGE REFERENCE UNITS LAB L501.4405 13-56 U/L Low ALT 11 Performed By: #### L501.1105, L501.1400, L501.4100, L501.4405 #### [facility] [address] [place], [address] PROTHROMBIN TIME W/INR Collected: 10/06/2018 Status: F Source: [place] 5:25 PM [facility] REPOSITORY TYPE CODE TESTS RESULT OUT OF RANGE REFERENCE UNITS LAB L300.4150 11.7-14.9 SECONDS Normal PROTIME 13.0 LAB L300.4200 Normal INR 1.0 Performed By: #### L300.3900, L300.4310 #### [facility] [address] [facility] [place], [address] PARTIAL THROMBOPLAST Collected: 10/06/2018 Status: F Source: [place] TIME 5:25 PM [facility] REPOSITORY TYPE CODE TESTS RESULT OUT OF RANGE REFERENCE UNITS LAB L300.4310 24.1-36.2 Seconds Normal PTT 26.4 Performed By: #### L300.3900, L300.4310 #### [facility] [address] [place], [address] CBC-COMPLETE BLOOD CNT Collected: 10/06/2018 Status: F Source: [place] NO DIFF 5:25 PM [facility] REPOSITORY TYPE CODE TESTS RESULT OUT OF [...] MPV 9.6 Performed By: #### L100.0500 #### [facility] [address] [place], [address] PROGRESS Observed: 09/29/2018 Status: COMPLETED Source: [place] 5:36 PM [facility] [place] REPOSITORY HNO ID: [id number] Author: Loan (Vitaliy) Gamal Service: (none) Author Type: Riveter Helper Type: Progress Notes Filed: 09/29/2018 5:37 PM [...] or cramping/contractions. 1. 38 weeks gestation of -[facility] teaching done -Labor precautions reviewed - URINE OB DIP B/O Loan Staples APRN.CNM CBC-COMPLETE BLOOD CNT Collected: 09/25/2018 Status: F Source: [place] NO DIFF 10:45 AM [facility] REPOSITORY TYPE CODE TESTS RESULT OUT OF [...] MPV 9.3 Performed By: #### L100.0500 #### [facility] [address] [place], [address] PROTHROMBIN TIME W/INR Collected: 09/25/2018 Status: F Source: [place] 10:45 AM [facility] REPOSITORY TYPE CODE TESTS RESULT OUT OF RANGE REFERENCE UNITS LAB L300.4150 11.7-14.9 SECONDS Normal PROTIME 13.3 LAB L300.4200 Normal INR 1.0 Performed By: #### L300.3900, L300.4310 #### [facility] [address] [place], [address] PARTIAL THROMBOPLAST Collected: 09/25/2018 Status: F Source: [place] TIME 10:45 AM [facility] REPOSITORY TYPE CODE TESTS RESULT OUT OF RANGE REFERENCE UNITS LAB L300.4310 24.1-36.2 Seconds Normal PTT 26.9 Performed By: #### L300.3900, L300.4310 #### [facility] [address] [place], [address] SERUM CREATININE AND Collected: 09/25/2018 Status: F Source: [place] GFR 10:45 AM [facility] REPOSITORY TYPE CODE TESTS RESULT OUT OF [...] By: #### L501.1105, L501.1400, L501.4100, L501.4405 #### [facility] [address] [place], [address] URIC ACID Collected: 09/25/2018 Status: F Source: [place] 10:45 AM [facility] REPOSITORY TYPE CODE TESTS RESULT OUT OF RANGE REFERENCE UNITS LAB L501.1400 2.6-6.0 mg/dL Normal URIC 4.4 Result Comment: The drugs N-Acetylcysteine and Metamizole may falsely depress this assay. Performed By: #### L501.1105, L501.1400, L501.4100, L501.4405 #### [facility] [address] [facility] [place], [address] AST(SGOT) Collected: 09/25/2018 Status: F Source: [place] 10:45 AM [facility] REPOSITORY TYPE CODE TESTS RESULT OUT OF RANGE REFERENCE UNITS LAB L501.4100 15-37 U/L Low AST 11 Performed By: #### L501.1105, L501.1400, L501.4100, L501.4405 #### [facility] [address] [facility] [place], [address] ALANINE AMINOTRANSFERAS Collected: 09/25/2018 Status: F Source: [place] (SGPT) 10:45 AM [facility] REPOSITORY TYPE CODE TESTS RESULT OUT OF RANGE REFERENCE UNITS LAB L501.4405 13-56 U/L Low ALT 11 Performed By: #### L501.1105, L501.1400, L501.4100, L501.4405 #### [facility] [address] [facility] [place], [address] PROTEIN+CREATININE Collected: Status: F Source: [place] RATIO,URINE 09/25/2018 10:45 AM [facility] REPOSITORY TYPE CODE TESTS RESULT OUT OF RANGE REFERENCE UNITS LAB L501.1200 NO RANGE EST. mg/dL Normal UR CREAT 113.00 LAB L501.1930 <11.9 mg/dL High 20.7 PROTEIN,UR.R AN. LAB L501.1940 0-200 mg/g CRE Normal PROT:CRE 183 RATIO Performed By: #### L501.0900 #### [facility] [address], [place], [address] PROGRESS Observed: 09/19/2018 Status: COMPLETED Source: [place] 2:31 PM [facility] [place] REPOSITORY HNO ID: [id number] Author: Jose Armando Kramer Service: (none) Author Type: Riveter Helper Type: Progress Notes Filed: 09/23/2018 5:58 PM [...] URINE 24HR Collected: 09/18/2018 Status: F Source: [place] 12:30 PM [facility] REPOSITORY Order Comment: START 09-17-18 1230 END 09-18-18 1230 TYPE CODE TESTS RESULT OUT OF RANGE REFERENCE UNITS LAB L501.1850 24.0 HOURS Normal UR COLLECT 24.0 TIME LAB L501.1875 mL Normal UR TOTAL 800 VOLUME LAB L501.1900 <11.9 mg/dL High URINE PROTEIN 31.6 LAB L501.1925 <150 MG/24HR mg/24HR High 24hr UR 252.8 PROTEIN Performed By: #### L500.9000, L502.000 #### [facility] [address], [place], [address] 24 HR URINE CREATININE Collected: 09/18/2018 Status: F Source: [place] 12:30 PM [facility] REPOSITORY Order Comment: START 09-17-18 1230 END 09-18-18 1230 TYPE CODE TESTS RESULT OUT OF RANGE REFERENCE UNITS LAB L502.0100 24.0 HOURS Normal UR COLLECT 24.0 TIME LAB L502.0200 L Normal UR TOTAL 0.80 VOLUME LAB L502.0300 NO RANGE EST. mg/dL Normal URINE CREAT 209.00 LAB L502.0400 0.70-1.90 g/24 HR Normal UR.CREAT/24hr 1.67 Performed By: #### L500.9000, L502.000 #### [facility] [address], [place], [address] GROUP B STREP PCR Collected: 09/17/2018 Status: F Source: [place] 11:[address] [facility] REPOSITORY TYPE CODE TESTS RESULT OUT OF REFERENCE UNITS RANGE LAB GBPCRT Negative for GROUP Group B B STREP PCR Streptococcus by PCR. Performed By: #### GBPCR #### [facility] [address] [place], [place] [address] PROTEIN+CREATININE Collected: Status: F Source: [facility],URINE 09/17/2018 12:30 PM [facility] REPOSITORY TYPE CODE TESTS RESULT OUT OF RANGE REFERENCE UNITS LAB L501.1200 NO RANGE EST. mg/dL Normal UR CREAT 236.00 LAB L501.1930 <11.9 mg/dL High 30.4 PROTEIN,UR.R AN. LAB L501.1940 0-200 mg/g CRE Normal PROT:CRE 129 RATIO Performed By: #### L501.0900 #### [facility] [address], [place], [address] CBC-COMPLETE BLOOD CNT Collected: 09/17/2018 Status: F Source: [place] NO DIFF 12:10 PM [facility] REPOSITORY TYPE CODE TESTS RESULT OUT OF [...] MPV 9.1 Performed By: #### L100.0500 #### [facility] [address] [place], [place], [address] SERUM CREATININE AND Collected: 09/17/2018 Status: F Source: [place] GFR 12:10 PM [facility] REPOSITORY TYPE CODE TESTS RESULT OUT OF [...] L501.1105, L501.1400, L501.4100, L501.4405, L300.3900, L300.4310 #### [facility] [address] [place], [address] URIC ACID Collected: 09/17/2018 Status: F Source: [place] 12:10 PM [facility] REPOSITORY TYPE CODE TESTS RESULT OUT OF RANGE REFERENCE UNITS LAB L501.1400 2.6-6.0 mg/dL Normal URIC 4.6 Result Comment: The drugs N-Acetylcysteine and Metamizole may falsely depress this assay. Performed By: #### L501.1105, L501.1400, L501.4100, L501.4405, L300.3900, L300.4310 #### [facility] [address] [place], [address] AST(SGOT) Collected: 09/17/2018 Status: F Source: [place] 12:10 PM [facility] REPOSITORY TYPE CODE TESTS RESULT OUT OF RANGE REFERENCE UNITS LAB L501.4100 15-37 U/L Low AST 12 Performed By: #### L501.1105, L501.1400, L501.4100, L501.4405, L300.3900, L300.4310 #### [facility] [address] [place], [place], [address] ALANINE AMINOTRANSFERAS Collected: 09/17/2018 Status: F Source: [place] (SGPT) 12:10 PM [facility] REPOSITORY TYPE CODE TESTS RESULT OUT OF RANGE REFERENCE UNITS LAB L501.4405 13-56 U/L Normal ALT 13 Performed By: #### L501.1105, L501.1400, L501.4100, L501.4405, L300.3900, L300.4310 #### [facility] [address] [place], [address] PROTHROMBIN TIME W/INR Collected: 09/17/2018 Status: F Source: [place] 12:10 PM [facility] REPOSITORY TYPE CODE TESTS RESULT OUT OF RANGE REFERENCE UNITS LAB L300.4150 11.7-14.9 SECONDS Normal PROTIME 13.2 LAB L300.4200 Normal INR 1.0 Performed By: #### L501.1105, L501.1400, L501.4100, L501.4405, L300.3900, L300.4310 #### [facility] [address] [place], [place], [address] PARTIAL THROMBOPLAST Collected: 09/17/2018 Status: F Source: [place] TIME 12:10 PM [facility] REPOSITORY TYPE CODE TESTS RESULT OUT OF RANGE REFERENCE UNITS LAB L300.4310 24.1-36.2 Seconds Normal PTT 27.6 Performed By: #### L501.1105, L501.1400, L501.4100, L501.4405, L300.3900, L300.4310 #### [facility] [address] [place], [place], [address] Observed: 09/17/2018 Status: F Source: [place] URINE CULTURE 11:[address] [facility] REPOSITORY Sp. Request/Comment: - Specimen received in preservative Culture Result - 10,000 - <50,000 CFU/ml Normal urogenital renata Performed By: #### URCUL #### [facility] [address] [place], [place] [address] CBC Collected: 08/30/2018 Status: F Source: [place] 11:[address] [facility] REPOSITORY TYPE CODE TESTS [...] nRBC <0.01 Performed By: #### CBC #### [facility] [address] [id number] 50G, 1HR GEST. Collected: 08/30/2018 Status: F Source: [place] GSCRN 11:[address] [facility] REPOSITORY TYPE CODE TESTS RESULT OUT OF REFERENCE UNITS RANGE LAB GLUP 74-134 mg/dL Glucose 108 Screen, Preg Result Comment: [place] [employer] of [employer]st[employer] Gynecologists (Jones/Coustan) guidelines state a gestational diabetes mellitus positive screen is made, in women not previously diagnosed with overt diabetes, when the 1 hr plasma glucose level is equal to or above 140 mg/dL. The [facility] [place] recommends a 135 mg/dL cutoff. Performed By: #### GLTGST #### [facility] [address] [place], [place] [address] PROGRESS Observed: 07/04/2018 Status: COMPLETED Source: [place] 5:12 PM [facility] REPOSITORY O ID: [id number] Author: Loan Staples Service: (none) Author Type: Riveter Helper Type: Progress Notes Filed: 07/04/2018 5:12 PM [...] me off. Patient had scheduled appointment with [facility] back in March to initiate [...] daily. -Patient will call and schedule appt [facility] - patient's mother very supportive [...] APRN.CNM PROGRESS Observed: 05/23/2018 Status: COMPLETED Source: [place] 4:[address] [facility] REPOSITORY HNO ID: [id number] Author: Raymond Sultana Service: (none) Author Type: Physician Type: [...] indicated PROGRESS Observed: 05/23/2018 Status: COMPLETED Source: [place] 1:[address] [facility] REPOSITORY HNO ID: [id number] Author: Loan Staples Service: (none) Author Type: Riveter Helper Type: Progress Notes Filed: 05/23/2018 1:31 PM [...] supervision of other normal in second trimester -[facility] teaching and PTL precautions reviewed - URINE OB DIP B/O 2. 19 weeks gestation of -- URINE OB DIP B/O Loan Staples APRN.CNM PROGRESS Observed: 04/04/2018 Status: COMPLETED Source: [place] 11:[address] [facility] REPOSITORY HNO ID: [id number] Author: Aramis Salomon Service: (none) Author Type: Physician Type: Progress Notes Filed: 04/04/2018 11:50 AM Note Text: Please see ultrasound report for details of this visit. Aramis Salomon M.D. TOXICOLOGY SCREEN,UR Collected: 04/03/2018 Status: F Source: [place] 1:10 PM [facility] REPOSITORY TYPE CODE TESTS [...] on the same specimen through Client Services ([phone]) if contacted within 48 hours of initial testing. [1]Substance Abuse and Mental Health Services Administration (2012). Clinical Drug Testing in Primary Care Technical Assistance Publication Series 32. Department of Health and Human Services, [place], p.10. These tests were developed and their performance characteristics determined by [facility]'s [facility] [place] (RT [facility]). They have not been cleared or a pproved by the FDA. [facility] is regulated under CLIA as qualified to perform high complexity testing. These tests are used for clinical purposes. They should not be regarded as investigational or for research. Performed By: #### UTOX2 #### [facility] [address] [place], [place] [address] Observed: 04/03/2018 Status: F Source: [place] URINE CULTURE 1:[address] [facility] REPOSITORY Sp. Request/Comment: - Best Practice Alert: To ensure optimal transport conditions and accurate culture results transfer urine specimens to freedman top C and S preservative tube. Culture Result - 50,000 - <100,000 CFU/ml Normal urogenital renata Performed By: #### URCUL #### [facility] [address] [id number] 50G, 1HR GEST. Collected: 04/03/2018 Status: F Source: [place] GSCRN 11:[address] [facility] REPOSITORY TYPE CODE TESTS RESULT OUT OF REFERENCE UNITS RANGE LAB GLUP 74-134 mg/dL Glucose 115 Screen, Preg Result Comment: [place] [employer]stetricians and Gynecologists (Jones/Coustan) guidelines state a gestational diabetes mellitus positive screen is made, in women not previously diagnosed with overt diabetes, when the 1 hr plasma glucose level is equal to or above 140 mg/dL. The [facility] [place] recommends a 135 mg/dL cutoff. Performed By: #### GLTGST #### [address] [place], [place] [address] CBC Collected: 04/03/2018 Status: F Source: [place] 11:[address] [facility] REPOSITORY TYPE CODE TESTS [...] CBC, SYPHGX, RUBIGG, HBSAG, HIV12C, SEQL1 #### [facility] [address] [address] SYPHILIS IGG WITH Collected: 04/03/2018 Status: F Source: [facility] 11:[address] [facility] REPOSITORY TYPE CODE TESTS [...] CBC, SYPHGX, RUBIGG, HBSAG, HIV12C, SEQL1 #### [address] [address] RUBELLA IGG ANTIBODY Collected: 04/03/2018 Status: F Source: [place] 11:[address] [place] [address] REPOSITORY TYPE CODE TESTS RESULT OUT OF [...] CBC, SYPHGX, RUBIGG, HBSAG, HIV12C, SEQL1 #### [address] [place] [address] HEPATITIS B SURF. AG Collected: 04/03/2018 Status: F Source: [place] 11:56 [facility] REPOSITORY TYPE CODE TESTS RESULT OUT OF REFERENCE UNITS RANGE LAB HBSAG Negative Hepatitis B Negative Surf. Ag Performed By: #### CBC, SYPHGX, RUBIGG, HBSAG, HIV12C, SEQL1 #### [facility] [address] [id number] HIV 12 COMBO (AG/AB) Collected: 04/03/2018 Status: F Source: [place] 11:56 AM [facility] [place] REPOSITORY TYPE CODE TESTS RESULT OUT OF REFERENCE UNITS RANGE LAB HVAGAB Non Reactive HIV Non Reactive 12 Ag/Ab Result Comment: (NOTE) HIV Information: Early Rev. Code 3701.243(E): This information has been [...] CBC, SYPHGX, RUBIGG, HBSAG, HIV12C, SEQL1 #### [address] [place] [id number] SEQUENT SCRN FIRST Collected: 04/03/2018 Status: F Source: [place] [facility] PATIENTS ONLY 11:[address] [facility] REPOSITORY TYPE CODE TESTS RESULT OUT OF REFERENCE UNITS RANGE LAB SE1PAP MoM 0.58 SE1 PAOLO A LAB SE1HCG MoM 1.48 SE1 hCG LAB SE1INT Final result pending second Final trimester SE1 result pending sample Interp second trimester sample LAB SE1SDN SE1 Scrn 1:1300 Rsk Dn Synd LAB SE1ADN 1:830 SE1 Age Rsk Dn Synd LAB SE1STR SE1 Scr <1:18469 Rsk Trsmy18 LAB SE1ATR SE1 Age 1:2500 Rsk Trsmy18 LAB SE1RS View Seq Scrn results in First Trim Scanned Documents link when available. LAB SEQLRV SEQ Staff Reviewed by Review Shaun Stephens MD, PhD ([id number]) Performed By: #### CBC, SYPHGX, RUBIGG, HBSAG, HIV12C, SEQL1 #### [facility] [address], [place] [address] TYPE AND SCR,PRENATL Collected: 04/03/2018 Status: F Source: [place] 11:[address] [facility] REPOSITORY TYPE CODE TESTS RESULT OUT OF REFERENCE UNITS RANGE LAB %ABR A ABO/RH(D) POSITIVE LAB % Antibody NEG Screen Performed By: #### TSPN #### [facility] [address] [address] GC/CHLAMYDIA AMPLIF Collected: 03/28/2018 Status: F Source: [place] 11:[address] [facility] REPOSITORY TYPE CODE TESTS RESULT OUT OF REFERENCE UNITS RANGE LAB GCCTSR GC/Chlam Amp Cervix Source LAB GCAMPL GC Negative Amplification for Neisseria gonorrhoeae by amplification. LAB CLAMPL Chlamydia Negative Amplif for Chlamydia trachomatis by amplification. Performed By: #### GCCT #### [facility] [address] [address] CYTOLOGY Observed: 03/28/2018 Status: C Source: [place] 10:[address] [facility] REPOSITORY ADDITIONAL PROCEDURES PRESENT ---Abnormal Pap Test - Epithelial Cell Abnormality--- Specimen originated from [facility] Specimen #: [id number] Submitting Physician: CHRISTEN MANCILLA MD SPECIMEN SUBMITTED [...] from every slide are reviewed by a blending line attendant. Rafi Larry M.D. (Electronic Signature) ADDITIONAL PROCEDURE(S) HUMAN PAPILLOMA VIRUS Date Ordered: 04/04/2018 Date Reported: 04/08/2018 Procedure Results and Interpretation Negative for HPV DNA high risk type 16 by PCR. Negative for HPV DNA high risk type 18 by PCR. Negative for HPV DNA high risk types: 31,33,35,39,45,51,52,56,58,59,66,68 by PCR. This test was developed and its performance characteristics determined by [facility]'s [facility] [place] ([facility]). It has not been cleared or approved by the FDA. -[facility] is regulated under CLIA as qualified to perform high-complexity testing. This test is used for clinical purposes. It should not be regarded as investigational or for research. 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 The Pap Smear is a screening test for cervical cancer. False negative results occur with all screening tests, emphasizing the need for rescreening at recommended intervals, and clinical correlation. HPV W/GENOTYPE Collected: 03/28/2018 Status: F Source: [place] 10:30 AM [facility] REPOSITORY TYPE [...] developed and its performance characteristics determined by [facility]'s [facility] [place] ([facility]). It has not been cleared or approved by the FDA. -[facility] is regulated under CLIA as qualified to perform high-complexity testing. This test is used for clinical purposes. It should not be regarded as inv estigational or for research. 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 Patient BMI over 30? Yes Marital Status:Co-habitating Partner: Name: Medardo PAST MEDICAL HISTORY Diagnosis Date - depression PAST SURGICAL HISTORY Procedure Laterality Date - NONE Current Outpatient Prescriptions on File Prior to Visit: Elivuwpl-Pk-Abt-Fe-FA ( VITAMIN) tab Take 1 tablet by [...] MD PROGRESS Observed: 03/27/2018 Status: COMPLETED Source: [place] 5:06 PM [facility] REPOSITORY HNO ID: [id number] Author: Luz Gomez RN Service: (none) Author [...] None CNNURSE Observed: 03/27/2018 Status: COMPLETED Source: [place] 2:[address] [facility] REPOSITORY Nurse Visit (WOOB) DEX MALLORY ([id number]) 1995 F Date Time Provider Department 03/27/18 2:30 PM NURSE PNOB [facility] WSTR WOOB During your visit today, we recorded the following information about you: Luz Gomez RN 03/27/2018 3:15 PM Signed SEQUENTIAL SCREENINGS The [facility] offers sequential screenings for women who are [...] It will require an appointment with our master sonar technician. This is not an ultrasound performed [...] the above symptoms, contact our office at [phone] and ask to speak with a nurse. After hours, you can call doctors registry at [phone] OR call [facility] at [phone] and ask to have the doctor education consultant paged. If you consider this an emergency, [...] treatment is particularly effective in young patients-the [facility] Cord Blood Bank reports a 70 percent [...] issues. What do the experts say? The [place] [employer] encourages philanthropic blood banking [...] baby needs at the moment. The nurse, hearing impaired teacher, or physician will then label the samples, [...] AHEAD OF TIME! Public cord-blood masterson--DONATION: [employer] [phone] [facility]'s Placental Blood Program, [facility] Umbilical Cord Blood Bank, Private cord-blood masterson--SAVING FOR YOUR OWN USE: [employer], (I think this is the least expensive) [employer] [phone] [employer], (537) [employer] [place] Cord Blood Bank, [phone] 700-CORD Cells, [phone] [place] Cry[employer], Cord Blood Registry, (657) CORDBLOOD [employer], An Internet search may provide you with [...] requested diagnostic testing [Z01.89] Order(s):ROLY PT ED DIRECTOR COMPLIANCE [[id number]] Order #: [id number]: 1 FUTURE ROLY PT ED DIRECTOR COMPLIANCE [[id number]] Order #: [id number]. #:[id number] Prescriptions as of 03/27/2018 Sig: VITAMIN,CALCIUM,MINE* [...] instructions from your clinician: SEQUENTIAL SCREENINGS The [facility] offers sequential screenings for women who are [...] It will require an appointment with our master sonar technician. This is not an ultrasound performed [...] the above symptoms, contact our office at [phone] and ask to speak with a nurse. After hours, you can call [facility] at [phone] OR call [facility] at [phone] and ask to have the doctor education consultant paged. If you consider this an emergency, dial 9-1-1 or go to your nearest emergency department. Cord-Blood Banking Up until recently, the umbilical cord--along with the blood that remained in it after a baby was born and the cord cut--was simply discarded by the hospital. Then, in the late 1980s, researchers discovered that cord blood possessed unusual [...] is particularly effective in young patients- the [facility] Cord Blood Bank reports a 70 percent [...] issues. What do the experts say? The [place] [employer] encourages philanthropic blood banking [...] baby needs at the moment. The nurse, hearing impaired teacher, or physician will then label the samples, [...] AHEAD OF TIME! Public cord-blood masterson--DONATION: [employer] [phone] [facility]'s Placental Blood Program, [facility] Umbilical Cord Blood Bank, Private cord-blood masterson--SAVING FOR YOUR OWN USE: [employer], (I think this is the least expensive) [employer] [phone] [employer], ([phone]) [employer] [place] Cord Blood Bank, [phone] 700-CORD Cells, [phone] [place] Cry[employer], Cord Blood Registry, (413) CORDBLOOD [employer], An Internet search may provide you with additional listings. Disposition: Return in 1 day (on 03/28/2018) for New OB with Dr Mancilla. Follow-up and Disposition History Recorded Letter Text Dear Dex Mallory: How to activate your [facility] HASH Account 1. Visit the HASH Signup page at [email or web address] 2. Identify yourself using your one-time use activation code: [email or web address] 3. Follow the on-screen prompts to choose [...] information on the Identify Yourself Form at [email or web address] , click Next. Create your login and password, choose a HASH ID and password that will be easy for you to use, but impossible for anyone else to guess. Pick a security question that will assist you in the event you forget your password the next time you log-on. If you have difficulty activating your account, please call our HASH helpline at [phone] or toll free at . We hope you enjoy using HASH! Kindest Regards, [facility] HASH Team Encounter Status:Closed by LUZ GOMEZ RN on 03/27/18 CBC Collected: 02/28/2018 Status: F Source: [place] 11:40 AM [facility] REPOSITORY TYPE CODE TESTS RESULT [...] CBC, ADIFF, ANEU, GFR, BMP #### [place] [address] [address] .AUTO DIFF Collected: 02/28/2018 Status: F Source: [facility] 11:40 AM [facility] REPOSITORY TYPE CODE TESTS RESULT [...] #### CBC, ADIFF, ANEU, GFR, BMP #### [address] [address] .NEUABS Collected: 02/28/2018 Status: F Source: [facility] 11:40 AM [facility] REPOSITORY TYPE CODE TESTS RESULT OUT OF REFERENCE UNITS RANGE LAB ANEU(LOINC) 2.85-6.16 10 3/mcL High Neutrophil, 10.00 Absolute Performed By: #### CBC, ADIFF, ANEU, GFR, BMP #### [address] [address] .GFR Collected: 02/28/2018 Status: F Source: [facility] 11:40 AM [facility] REPOSITORY TYPE CODE TESTS RESULT OUT OF REFERENCE UNITS RANGE LAB GFRAA(LOINC ml/min/1.73 ) sqm GFR 155 [place]ese Result Comment: GFR Population mean for , [...] #### CBC, ADIFF, ANEU, GFR, BMP #### [address] [place], [place] [address] BMP Collected: 02/28/2018 Status: F Source: [facility] 11:40 AM [facility] REPOSITORY TYPE CODE TESTS RESULT [...] #### CBC, ADIFF, ANEU, GFR, BMP #### [address] [address] UA Collected: 02/28/2018 Status: F Source: [facility] 11:40 AM [facility] REPOSITORY TYPE CODE TESTS RESULT [...] Performed By: #### UA, UAMICAO #### [place] [address] [address] .URINALYSIS MICROSCOPIC Collected: 02/28/2018 Status: F Source: [place] ([place]) 11:40 AM [facility] REPOSITORY TYPE CODE TESTS RESULT OUT OF RANGE REFERENCE UNITS LAB WBCUA(LOIN None Seen /hpf C) Unknown UA WBC 5-10 LAB RBCUA(LOIN None Seen /hpf C) UA RBC None Seen LAB EPIUA(LOIN None Seen /hpf C) Unknown UA Squam Epithelial LOADED LAB BACUA(LOIN /hpf C) Unknown UA Bacteria Trace Performed By: #### UA, UAMICAO #### [place] [address] [address] ALLERGIES ALLERGIES DATE TYPE / CODE NAME / CODE REACTION SEVERITY SOURCE 10/13/2018 Drug Sulfa (Sulfonamide Hives [place] Allergy/416 Antibiotics)/[id number] Community [id number]([facility] 0491(RXRUST ED CT) Repository 10/13/2018 Drug strawberry/[id number] Hives Unknown [place] Allergy/416 37(RXNORM) Community 873300([facility] ED [facility]) Repository 03/27/2018 Food/275927 STRAWBERRIES HIVES [facility] 000(SNOMED [place]) Repository 03/27/2018 Drug SULFA (SULFONAMIDE HIVES [facility] Class/05651 ANTIBIOTICS) [place] 1003([facility] ENCOUNTERS ENCOUNTERS ADMIT/DISCHARGE ACCOUNT NUMBER ADMITTING ENCOUNTER LOCATION SOURCE CLASS 10/13/2018/10/17/20 [id number] Ambulatory [address] Repository 10/13/2018/10/15/20 [id number] [place], Inpatient Anton [place] 18 [place] Encounter [facility] ding:WPRoom: Repository CP129Pqx: 1 10/06/2018/10/06/20 [id number] [place] ding:WPOUTRo Repository om: [id number] 10/06/2018/10/07/20 [id number] Ambulatory [address] Repository 09/29/2018/09/30/20 [id number] Ambulatory [address] [place] Repository 09/25/2018/09/25/20 [id number] [place] [address] [place] [address] ding:WPOUTRo Repository om: [id number] 09/22/2018/09/23/20 [id number] Ambulatory [address] [place] Repository 09/19/2018/09/24/20 [id number] Ambulatory [address] [place] Repository 09/18/2018 [id number] Ambulatory [facility] ding:LABSPEC Repository 09/17/2018/09/17/20 [id number] Ambulatory [address] ding:WPOUTRo Repository om: [id number] 09/17/2018/09/18/20 [id number] Ambulatory [address] [place] Repository 09/12/2018/09/15/20 [id number] Ambulatory [address] [place] Repository 08/30/2018/08/30/20 [id number] Ambulatory [address] [place] Repository 08/29/2018/09/04/20 [id number] Ambulatory [address] [place] Repository 08/11/2018/08/12/20 [id number] Ambulatory [address] [place] Repository 07/04/2018/07/07/20 [id number] Ambulatory [address] [place] Repository 06/26/2018/06/27/20 [id number] Ambulatory [address] [place] Repository 06/12/2018/06/12/20 [id number] Emergency BBuilding:ZEINAB [place] 18 [facility] Repository 06/12/2018/06/12/20 [id number] Ambulatory BBuilding:BRIAN [place] 18 URoom: Health 0209Bed: A [facility] Repository 05/23/2018/05/26/20 [id number] Ambulatory [address] [place] Repository 05/23/2018/05/26/20 [id number] Ambulatory [address] [place] Repository 04/25/2018/04/28/20 [id number] Ambulatory [address] [place] Repository 04/03/2018 [id number] Ambulatory [facility] [place] Repository 04/03/2018/04/08/20 [id number] Ambulatory [address] [place] Repository 03/28/2018/04/01/20 [id number] Ambulatory [address] [place] Repository 03/27/2018/04/01/20 [id number] Ambulatory [address] Repository 03/04/2018/03/04/20 [id number] Emergency BBuilding:ER [place] [address] [place] [address] Repository 02/28/2018/02/29/20 [id number] Emergency BBuilding:ER [facility] [address] [place] [address] Repository PAYERS PAYERS ENCOUNTER GUARANTOR PAYER SUBSCRIBER SOURCE 10/13/2018 DEX J Primary DEX J Anton [id number] [address] Insurance:MOLINAPolic DODSONDOB: Community MARKET y Number: [id number], [place] [id number] Repository 71006Eqp: [phone]) Date:7188-61-29SV [phone] () [address] [place] [address] 93620JT: 10/13/2018 Secondary NOT GIVENUNK Anton Insurance:SELF PAY [facility] Number: Effective Repository Date:2018-10-13 10/06/2018 DEX Primary DEX [place] [id number] [address] Insurance:MOLINAPolic DODSONDOB: Community MARKET y Number: [id number], [place] [id number] Repository 36097Cin: ([phone]) Date:5263-60-23JS [phone] () [address] [place] [address] 00366OQ: 10/06/2018 Secondary NOT GIVENUNK Anton Insurance:SELF PAY [facility] Number: Effective Repository Date:2018-10-06 09/25/2018 DEX Primary DEX [place] [id number] W Insurance:MOLINAPolic DODSONDOB: Community [employer] y Number: [id number], [place] [id number] Repository [address]25[address]Mlc: ([phone]) Date:1950-99-54QF [phone] () [address] [place] [address] 01844SD: 09/25/2018 Secondary NOT GIVENUNK Anton Insurance:SELF PAY [facility] Number: Effective Repository Date:2018-09-25 09/18/2018 DEX Primary DEX Anton [id number] [address] Insurance:MOLINAPolic DODSONDOB: Community [employer] y Number: [id number], [place] [id number] Repository [address]Jzg: ([phone]) Date:3112-32-55JX [phone] (HP) [address] [place] [address] 68133VP: 09/18/2018 Secondary NOT GIVENUNK Anton Insurance:SELF PAY [facility] Effective Repository Date:2018-09-18 09/17/2018 DEX Primary DEX [place] [id number] W Insurance:MOLINAPolic DODSONDOB: Community MARK[employer] y Number: [id number], [place] [id number] Repository 28488Pha: [phone]) Date:7449-31-36WT [phone] () [address] [place] [address] 87007AA: 09/17/2018 Secondary NOT GIVENUNK [place] Insurance:SELF PAY [facility] Number: Effective Repository Date:2018-09-17 06/12/2018 [facility]EX J [facility]GA KALLIEDOB: [facility] N MEDICAIDPolicy [id number] Repository [place] Number: [address] [place], [place] [id number] [place] [address]~OMAR Date:2018-06-12Tel: (395) [email or web address]: [phone] Name:XPO Box (HP)Tel: (145) ()Tel: [phone] [phone] () [place], [place] [address]WI: 06/12/2018 DEX J Primary DEX J [facility] DODSONDOB: Insurance:VEGA DODSONDOB: [facility] N MEDICAIDPolicy [id number] Repository [place] Number: [address] [place] [id number] [place] [address]~YASMIN.DODSO Date:2018-06-12Tel: 330) [email or web address]: [phone] Name:XPO Box (HP)Tel: (000) (HP)Tel: [phone] ClaimLong [phone] (WP) [phone] (WP) [place], [place] [address]UR: 03/04/2018 DEX J Primary DEX [facility]: [facility]: [facility] N MEDICAIDPolicy [id number] Repository [place] Number: [address] [place] [id number] [place] [address]~YASMIN.DODSO Date:2018-03-04Tel: (330) [email or web address]: [phone] Name:XPO Box (HP)Tel: (000) (HP)Tel: [phone] ClaimLong [phone] (WP) [phone] () [place], [place] [address]QW: 02/28/2018 DEX J Primary DEX J [facility] DODSONDOB: Insurance:VEGA CLARITZASONDOB: [facility] N MEDICAIDPolicy [id number] Repository [place] Number: [address] [place] [id number] [address]~YASMIN.DODSO Date:2018-02-28Tel: 330) [email or web address]: [phone] Name:XPO Box (HP)Tel: ([phone]) (HP)Tel: [phone] [facility]Lo [phone] ([phone] (WP) LAKSHMI Esquivel 33687IK:
== END 2018-10-06 18:50 | disposition home or self-care (01) ==
LOC: WPOUT 17:02 → WP 17:03
PROVIDERS: Advanced Practice Midwife; Referring Provider Obstetrics & Gynecology; Visit Provider Obstetrics & Gynecology
DX: O26.899 Other specified pregnancy related conditions, unspecified trimester (principal); R51 Headache; Z3A.00 Weeks of gestation of pregnancy not specified
CPT/HCPCS: 36415; 59025; 59050; 81050; 82565; 82570; 84156; 84450; 84460; 84550; 85027; 85610; 85730; 99218; G0378

== ENCOUNTER 2018-10-13 09:50 | Inpatient (IN) | payer MEDICAID, SELFPAY ==
[2018-10-13 09:57] VITALS: BMI 40.8
[2018-10-13] MEDS: Lactated Ringers 1,000 ML 50 ML IV (10:10)
[2018-10-13 10:45] LABS: Hematocrit 32.1 % (37-47); Hemoglobin 10.8 g/dl (12.0-15.0); Mean Corp Hgb Conc 33.6 g/gl (32-36); Mean Corpuscular Hgb 26.5 pg (27.0-32.0); Mean Corpuscular Volume 78.7 fL (81-99); Mean Platelet Vol. 9.3 fl (6.2-12.0); Platelet Count 209 K/mm3 (150-450); RBC Distribution Width CV 14.9 % (11.6-14.6); RBC Distribution Width SD 42.8 fl (35.1-43.9); Red Blood Count 4.08 M/mm3 (4.2-5.4); White Blood Count 9.9 K/mm3 (4.4-11.0)
[2018-10-13 10:46] LABS: Scan Indicated on CBC? Y/N NO
--- NOTE | 2018-10-13 12:33 | PCM.HP.OB ---
- Problem List (1) Active labor at term Status: Acute (2) Post-dates Status: Acute (3) Thick meconium stained amniotic fluid Status: Acute (4) Obesity affecting Status: Acute (5) History of depression Status: Acute (6) Iron deficiency anemia during Status: Acute History Date of Admission: 10/23/16 Final CINDI: 10/12/18 Final CINDI Source: LMP Gestational age: 40 Weeks and 1 Days History of this : This is a 23 year-old, G [2], P [1001], at 40 weeks 1 Day Gestational Age. Presented to office with contractions and cervical exam revealed 6cm dilation. Sent to L&D for active labor. Medical History: Medical History (Last Updated 09/17/18 @ 20:33 by Darline Avila DO) Anemia D64.9 History of depression Z87.59, Z86.59 Allergies Sulfa (Sulfonamide Antibiotics) Allergy (Intermediate, Verified 10/13/18 10:52) Hives strawberry Allergy (Verified 10/13/18 10:52) Hives Home Medications: Home Medications Acetaminophen/Diphenhydramine [Tylenol Pm Ex-Strength Caplet] 1 each PO PRN PRN 10/23/16 Ferrous Sulfate [Iron] 325 mg PO DAILY 09/17/18 Vits [Prenatabs FA] 1 tablet PO DAILY 09/17/18 Sertraline HCl [Zoloft] 50 mg PO DAILY 09/17/18 Smoking Status: Never smoker Alcohol: None Substance Use Type: Marijuana Heart Tracin, moderate variability, accels, no decels, Category 1 TOCO: every 2-3 minutes, strong History Past Pregnancies: Past Pregnancies Delivery Date Name GA/Weeks Outcome Route Weight Gender Labor Length Anesthesia Delivery Location Provider FOB Labs: RPR Negative GBS negative HIV negative HBsAG negative Rubella Immune GC/CT negative A positive, antibody screen negative Expected Delivery Method: Spontaneous Vaginal Review of Systems Constitutional: Denies: Chills, Fever, Weight Change Eyes: Denies: Blurred vision HEENT: Denies: Head Aches, Sinus Congestion, Sinus Drainage Cardiovascular: Denies: Chest Pain Respiratory: Denies: Cough, Shortness of breath at rest, Sputum production Gastrointestinal: Reports: Abdominal Pain. Denies: Nausea, Vomiting Genitourinary: Denies: Dysuria Musculoskeletal: Denies: Joint Pain, Joint Tenderness Skin: Denies: Rash, Wounds Neurological: Denies: Numbness, Tingling, Focal weakness Psychiatric: Denies: Anxiety, Depression, Homicidal Ideations, Suicidal Ideations Physical Exam General: Alert, Oriented x3, Cooperative HEENT: Atraumatic, Normocephalic Cardiovascular: Regular rate, Regular Rhythm, No murmurs Lungs: Clear to auscultation, Normal air movement, No rhonchi, No wheeze Abdomen: Bowel Sounds Present, Gravid Extremities:: No edema Neurological: Deep Tendon Reflexes 2+/4 and Symmetrical. Negative for: Clonus MEDICAL OFFICE SPECIALIST: Normal external genitalia Estimated gestational size: Appropriate for gestational size Presentation: Cephalic Cervix Dilation (cm): 7 - AROM for moderate amount of thick meconium stained fluid Station: -2 Effacement (%): 80 Assessment/Plan All Active Problems (Last Updated 09/17/18 @ 20:33 by Darline Avila DO) Headache (Acute) Dehydration during (Acute) Active labor at term (Acute) Post-dates (Acute) Thick meconium stained amniotic fluid (Acute) Obesity affecting (Acute) History of depression (Acute) Iron deficiency anemia during (Acute) This is a 23 year-old, G [2], P [1001], at 40 weeks gestational age. A: Active Labor Category 1 FHT P: 1) Admit to L&D Routine orders 2) AROM for meconium fluid, it training specialist to be present for delivery 3) Desires natural childbirth, bedside labor support provided 4) notified of admission and collaborative physician for care. Selam Kramer APRN, CNM
[2018-10-13] MEDS: Oxytocin 30 units/NS 500 ml 30 UNITS/500 ML IV.SOLN 334 UNITS IV (13:44)
[2018-10-13] MEDS: miSOPROStol 200 MCG Tablet 800 MCG RECTAL (14:04)
[2018-10-13] MEDS: Oxytocin 30 units/NS 500 ml 30 UNITS/500 ML IV.SOLN 167 UNITS IV (14:17)
--- NOTE | 2018-10-13 14:18 | OP.PCM_ITS ---
- Problem List (1) Active labor at term Status: Acute (2) Post-dates Status: Acute (3) Thick meconium stained amniotic fluid Status: Acute (4) Obesity affecting Status: Acute (5) History of depression Status: Acute (6) Iron deficiency anemia during Status: Acute (7) Vaginal delivery Status: Acute (8) First degree perineal laceration Status: Acute Vaginal Delivery Maternal Presentation: Active Labor Amniotic Membrane Rupture Type: Artificial - Thick meconium stained fluid Amniotic Fluid Description: Thick meconium Final CINDI: 10/12/18 Gestational age: 40 Weeks and 1 Days Date of Procedure: 10/13/18 Pre-Operative Diagnosis: Active Labor Post-Operative Diagnosis: Surgery/ Procedure Performed: Spontaneous Vaginal Delivery Type of Anesthesia: None Description of Procedure: Progressed to complete with strong urge to push. Laundry Press Operator and nursery staff called to delivery. of viable female over 1st degree perineal laceration unmedicated. APGARS 8,9 with weight pending. Infant delivered and placed skin to skin on maternal abdomen. Mouth and nares suctioned for secretions, stimulation and strong cry. Pitocin started for active 3rd stage management. Cord clamped and cut after pulsations ceased by FOB. Placenta delivered via maternal effort, intact via lena, 3 vessel cord. Perineum inspected and revealed 1st degree perineal laceration. Repaired with 3.0 vicryl and 1% Lidocaine, tolerated well. Fundus firm 400ml EBL. Continue slow trickle of blood. Cytotec 800mcg per rectum. initiated. Mom and baby stable, family bonding well. notified of delivery. Presentation: Vertex Placental Delivery Description: Spontaneous Placenta Disposition: [facility] Cord Vessel Description: 3 Vessels Cord Entanglement: None Estimated Blood Loss: 400ml A gender: Female (1 minute): 8 (5 minute): 9 Episiotomy Description: None Laceration: Perineal Extension/lac, 1st degree Medications given after delivery: IV Pitocin, - - 800mcg Cytotec per rectum for continued trickle of blood. Fundus firm.
[2018-10-13 16:25] VITALS: BP 140/90; PULSE 101; RESP 18; TEMP 37.3; O2SAT 97
[2018-10-13] MEDS: Ibuprofen 600 MG Tablet PO (17:45)
[2018-10-13 20:15] VITALS: BP 131/86; PULSE 112; RESP 16; TEMP 37.4; O2SAT 95
[2018-10-13 23:45] VITALS: BP 137/88; PULSE 96; RESP 18; TEMP 36.8; O2SAT 95
[2018-10-14 04:00] VITALS: BP 120/78; PULSE 96; RESP 16; TEMP 36.6; O2SAT 98
[2018-10-14] MEDS: Ibuprofen 600 MG Tablet PO ×2 (07:42→15:42)
--- NOTE | 2018-10-14 08:14 | PCM.PN.OB ---
Patient Problems: Active and Suspected Problems (Last Updated 09/17/18 @ 20:33 by Darline Avila DO) Active labor at term (Acute) Post-dates (Acute) Thick meconium stained amniotic fluid (Acute) Obesity affecting (Acute) History of depression (Acute) Iron deficiency anemia during (Acute) Vaginal delivery (Acute) First degree perineal laceration (Acute) Subjective: Pt doing well. with some difficulty. Lochia normal. Cramping controlled with Motrin. Denies lightheadedness, CP, SOB, leg pain. Ambulating and voiding without difficulty. - Physical Exam General: Alert, No apparent distress HEENT: Atraumatic Lungs: - - No increased resp effort Abdomen: Soft, Non Tender, - - FF@U-1 Extremities: No edema, No Calf Tenderness Skin: No rashes Neurological: Neuro grossly intact Psych/Mental Status: Normal Affect, Appropriate Vital Signs Temp Pulse Resp BP Pulse Ox 97.8 F 96 16 120/78 98 10/14/18 04:00 10/14/18 04:00 10/14/18 04:00 10/14/18 04:00 10/14/18 04:00 Oxygen Delivery Method Room Air Weight: 241 lb 13.553 oz Body Mass Index (BMI) 40.8 Intake and Output for Last 24 Hours 10/12/18 10/13/18 10/14/18 23:59 23:59 23:59 Intake Total 1330 / 1330 Output Total 900 / 900 Balance 430 / 430 Laboratory Tests Past 24 Hrs 10/13/18 10/13/18 10:10 10:10 WBC 9.9 RBC 4.08 L Hgb 10.8 L Hct 32.1 L MCV 78.7 L MCH 26.5 L MCHC 33.6 RDW 14.9 H RDW Differential 42.8 Plt Count 209 MPV 9.3 Blood Type A POSITIVE Antibody Screen NEGATIVE Medical Necessity - Tobacco Use Smoking Status: Never smoker Assessment/Plan All Active Problems (Last Updated 09/17/18 @ 20:33 by Darline Avila DO) Headache (Acute) Dehydration during (Acute) Active labor at term (Acute) Post-dates (Acute) Thick meconium stained amniotic fluid (Acute) Obesity affecting (Acute) History of depression (Acute) Iron deficiency anemia during (Acute) Vaginal delivery (Acute) First degree perineal laceration (Acute) PP day #1 s/p . - Doing well - Bottle feeding. Was trying to breastfeed but having difficulty - Desires tubal after 6 wk visit - Dispo: She would like to stay another night. Routine care and d/c home tomorrow
[2018-10-14 10:00] VITALS: BP 126/86; PULSE 98; RESP 16; TEMP 36.6
[2018-10-14 19:47] VITALS: BP 130/90; PULSE 102; RESP 18; TEMP 37.2
[2018-10-14] MEDS: Acetaminophen 500 MG Tablet 1000 MG PO (21:54)
[2018-10-15 02:15] VITALS: BP 132/81; PULSE 97; RESP 16; TEMP 36.4
[2018-10-15] MEDS: Ibuprofen 600 MG Tablet PO (03:18)
--- NOTE | 2018-10-15 08:14 | PCM.PN.OB ---
Patient Problems: Active and Suspected Problems (Last Updated 09/17/18 @ 20:33 by Darline Avila DO) Active labor at term (Acute) Post-dates (Acute) Thick meconium stained amniotic fluid (Acute) Obesity affecting (Acute) History of depression (Acute) Iron deficiency anemia during (Acute) Vaginal delivery (Acute) First degree perineal laceration (Acute) Subjective: Pt doing well. Ambulating and voiding without difficulty. Has noticed occasional burning with urination that is relieved when using the squirt bottle. Lochia normal. Denies lightheadedness, dizziness, CP, SOB, leg pain. Bottle feeding. - Physical Exam General: Alert, No apparent distress HEENT: Atraumatic Lungs: - - No increased resp effort Abdomen: Soft, Non Tender, - - FF Extremities: No edema, No Calf Tenderness Skin: No rashes Neurological: Neuro grossly intact Psych/Mental Status: Normal Affect, Appropriate Vital Signs Temp Pulse Resp BP Pulse Ox 97.6 F L 97 16 132/81 H 98 10/15/18 02:15 10/15/18 02:15 10/15/18 02:15 10/15/18 02:15 10/14/18 04:00 Oxygen Delivery Method Room Air Weight: 241 lb 13.553 oz Body Mass Index (BMI) 40.8 Intake and Output for Last 24 Hours 10/13/18 10/14/18 10/15/18 23:59 23:59 23:59 Intake Total 1330 / 1330 Output Total 900 / 900 Balance 430 / 430 Medical Necessity - Tobacco Use Smoking Status: Never smoker Assessment/Plan All Active Problems (Last Updated 09/17/18 @ 20:33 by Darline Avila DO) Headache (Acute) Dehydration during (Acute) Active labor at term (Acute) Post-dates (Acute) Thick meconium stained amniotic fluid (Acute) Obesity affecting (Acute) History of depression (Acute) Iron deficiency anemia during (Acute) Vaginal delivery (Acute) First degree perineal laceration (Acute) PP day #2 s/p - Doing well - Bottle feeding - D/c home today. Discharge instructions reviewed
--- NOTE | 2018-10-15 08:29 | PCM.DCVAG ---
Discharge Diet: No Restrictions Discharge Activity: Return to Normal Activity, May Shower May resume sexual activity in: 4-6 weeks Weight Bearing Status: Full weight bearing Lifting Restrictions: None Call your doctor if you observe: Fever of 101 or Higher, Inability to urinate, Inability to have a bowel movement, Using more than one pad per hour, Shortness of breath, Chest pain, Calf discomfort, Uncontrolled pain Cleanse incision/area with: Soap & Water Instructions: After a Vaginal Additional Instructions: If you experience any of the following, contact your healthcare provider. Bleeding that soaks a pad every hour for 2 hours Fever 100.4 or higher Unrelieved incision or abdominal pain Swelling, redness, discharge or bleeding from your incision or episiotomy site Your incision begins to separate Problems urinating (including inability to urinate or burning while urinating). Visual changes Severe headache Flu-like symptoms Pain or redness in one of both of your breasts Pain, warmth, tenderness or swelling in your legs, especially the calf area Frequent nausea and vomiting Symptoms of depression or anxiety If you experience any of the following, call 911 or go to the nearest Emergency Room. Chest pain Problems breathing Seizure activity Partial or complete paralysis of a body part, slurred speech, weakness or drooping of the face, or a sudden inability to walk or hold your balance Allergies/Adverse Reactions: Allergies Sulfa (Sulfonamide Antibiotics) Allergy (Intermediate, Verified 10/13/18 10:52) Hives strawberry Allergy (Verified 10/13/18 10:52) Hives Medications to take at Discharge Acetaminophen/Diphenhydramine [Tylenol Pm Ex-Strength Caplet] 1 each PO PRN PRN 10/23/16 Ferrous Sulfate [Iron] 325 mg PO DAILY 09/17/18 Vits [Prenatabs FA] 1 tablet PO DAILY 09/17/18 Sertraline HCl [Zoloft] 50 mg PO DAILY 09/17/18 When: In 4-6 weeks for visit. And in 1-2 weeks if you desire. Test Results: Test results from this visit will be discussed in further detail at your follow-up appointment, if applicable.
--- NOTE | 2018-10-15 08:37 | DCINST_ITS ---
Discharge Diet: No Restrictions Discharge Activity: Return to Normal Activity, May Shower May resume sexual activity in: 4-6 weeks Weight Bearing Status: Full weight bearing Lifting Restrictions: None Call your doctor if you observe: Fever of 101 or Higher, Inability to urinate, Inability to have a bowel movement, Using more than one pad per hour, Shortness of breath, Chest pain, Calf discomfort, Uncontrolled pain Cleanse incision/area with: Soap & Water Instructions: After a Vaginal Additional Instructions: If you experience any of the following, contact your healthcare provider. * Bleeding that soaks a pad every hour for 2 hours * Fever 100.4 or higher * Unrelieved incision or abdominal pain * Swelling, redness, discharge or bleeding from your incision or episiotomy site * Your incision begins to separate * Problems urinating (including inability to urinate or burning while urinating). * Visual changes * Severe headache * Flu-like symptoms * Pain or redness in one of both of your breasts * Pain, warmth, tenderness or swelling in your legs, especially the calf area * Frequent nausea and vomiting * Symptoms of depression or anxiety If you experience any of the following, call 911 or go to the nearest Emergency Room. * Chest pain * Problems breathing * Seizure activity * Partial or complete paralysis of a body part, slurred speech, weakness or drooping of the face, or a sudden inability to walk or hold your balance Allergies/Adverse Reactions: Allergies Sulfa (Sulfonamide Antibiotics) Allergy (Intermediate, Verified 10/13/18 10:52) Hives strawberry Allergy (Verified 10/13/18 10:52) Hives Medications to take at Discharge Acetaminophen/Diphenhydramine [Tylenol Pm Ex-Strength Caplet] 1 each PO PRN PRN 10/23/16 Ferrous Sulfate [Iron] 325 mg PO DAILY 09/17/18 Vits [Prenatabs FA] 1 tablet PO DAILY 09/17/18 Sertraline HCl [Zoloft] 50 mg PO DAILY 09/17/18 When: In 4-6 weeks for visit. And in 1-2 weeks if you desire. Test Results: Test results from this visit will be discussed in further detail at your follow- up appointment, if applicable.
[2018-10-15 08:40] VITALS: BP 128/80; PULSE 101; RESP 18; TEMP 36.7
[2018-10-15 10:40] VITALS: BP 128/80; PULSE 101; RESP 18; TEMP 36.7
== END 2018-10-15 10:40 | disposition home or self-care (01) | DRG 560 ==
PROVIDERS: Admitting Provider Obstetrics & Gynecology; Referring Provider Obstetrics & Gynecology; Visit Provider Obstetrics & Gynecology
DX: O48.0 Post-term pregnancy (principal); Z3A.40 40 weeks gestation of pregnancy; O77.0 Labor and delivery complicated by meconium in amniotic fluid; O99.02 Anemia complicating childbirth; D50.9 Iron deficiency anemia, unspecified; O99.214 Obesity complicating childbirth; Z37.0 Single live birth; Z68.41 Body mass index [BMI] 40.0-44.9, adult; O70.0 First degree perineal laceration during delivery
CPT/HCPCS: 59025; 59050; 85027; 86850; 86900; 99218; J7120; G0378

== ENCOUNTER 2018-12-18 09:20 | Day surgery (SDC) | payer MEDICAID, SELFPAY ==
--- NOTE | 2018-12-18 | FALS_PTH ---
PATIENT: DEX ARREGUIN LOC: [facility] U#:[id number] AGE/SX: 23/ ROOM: RE12/18/[address]: Dr. Darline Avila DO : 1995 BED: DIS: 12/18/2018 SPEC #: [id number] RECD: 12/18/18 14:56 STATUS: ROBIN KACEY #: [id number] TINY: 12/18/18 00:[address]: Darline Avila DEPT: SURGICAL PATHOLOGY RECD BY: Remy Lam ENTERED: 12/19/18 10:57 SP TYPE: FALL TUBES OTHR DR: No Primary Care Phys Tissues: Fallopian tube Procedures: Surgery Specimen Level II HEADER OPERATION: Laparoscopic salpingectomy PRE-OP DIAGNOSIS: Sterilization request TISSUE SUBMITTED: Bilateral fallopian tubes MICROSCOPIC DIAGNOSIS Bilateral fallopian tubes, salpingectomy: Bilateral fallopian tubes including fimbrial ends, no pathologic diagnosis. DEANDRA:diana 12/22/18 MICROSCOPIC DESCRIPTION Slides are reviewed. GROSS DESCRIPTION Received is one container labeled with the patient's name and designated bilateral fallopian tubes. The specimen consists of bilateral fallopian tubes including fimbrial ends. The fallopian tubes are not identified as right or left. One of the fallopian tubes measure 5.5 cm in length and 0.6 cm in diameter. Sections reveal unremarkable cut surfaces. The second fallopian tube is received in three pieces. The largest piece measures 3 cm in length and 0.6 cm in diameter. The smaller piece including fimbrial end measures in aggregate 2 x 2 x 0.5 cm. Sections do not reveal any mass lesion. Collection Specialist sections are submitted in two cassettes as follows: 1 - intact fallopian tube, 2 - fallopian tube received in multiple pieces. / SJ:rg 12/19/18 TC:4 CPT: 56068 x2
[2018-12-18 09:43] VITALS: BP 113/76; PULSE 88; RESP 16; TEMP 36.6; O2SAT 98; BMI 40.0
[2018-12-18 09:57] LABS: Hematocrit 37.6 % (37-47); Hemoglobin 11.9 g/dl (12.0-15.0); Mean Corp Hgb Conc 31.6 g/gl (32-36); Mean Corpuscular Hgb 24.8 pg (27.0-32.0); Mean Corpuscular Volume 78.3 fL (81-99); Mean Platelet Vol. 9.4 fl (6.2-12.0); Platelet Count 307 K/mm3 (150-450); RBC Distribution Width CV 14.6 % (11.6-14.6); RBC Distribution Width SD 41.6 fl (35.1-43.9); White Blood Count 6.2 K/mm3 (4.4-11.0)
--- NOTE | 2018-12-18 09:57 | DCINST_ITS ---
- Discharge Diagnoses Current Active Problems: Desires permanent sterilization You will use the following diet at home:: No restrictions Discharge Activity: May not drive while taking narcotic pain medications., May Shower May resume sexual activity in: No Restrictions Weight Bearing Status: Weight bearing as tolerated Lifting Restrictions: No lifting > 20 lbs Call your doctor if your incision/area has: Sudden Increased Bleeding, Increased Pain/ Swelling, Increased Redness, Swelling at the incision site Call your doctor if you observe: Fever of 101 or Higher, Inability to urinate, Inability to have a bowel movement, Shortness of breath, Chest pain, Increased palpitations (irregular heartbeat), Calf discomfort, Uncontrolled pain Suture Line Care: Avoid Pulling/Pushing Cleanse incision/area with: Soap & Water Allergies/Adverse Reactions: Allergies Sulfa (Sulfonamide Antibiotics) Allergy (Intermediate, Verified 12/18/18 09:42) Hives strawberry Allergy (Verified 12/18/18 09:42) Hives Medications to take at Discharge Acetaminophen/Diphenhydramine [Tylenol Pm Ex-Strength Caplet] 1 each PO PRN PRN 10/23/16 Sertraline HCl [Zoloft] 50 mg PO DAILY 09/17/18 Primary Care Physician: Care Physician,No Primary [Primary Care Provider] - Test Results: Test results from this visit will be discussed in further detail at your follow- up appointment, if applicable. Please Follow Up With: Darline Avila DO When: 1-2 weeks
--- NOTE | 2018-12-18 09:57 | PCM.OPRPT ---
Problem List (1) Sterilization Status: Acute Report of Operation Date of Procedure: 12/18/18 Pre-Operative Diagnosis: Desires permanent sterilization, multiparous patient Post-Operative Diagnosis: As above Surgery/Procedure Performed:: Laparoscopic bilateral salpingectomy Description of Surgical Findings:: Normal appearing uterus, bilateral tubes, bilateral ovaries. Normal liver edge. A peritoneal pocket was noted in the posterior cul-de-sac, no other signs of endometriosis within the pelvis. Type of Anesthesia:: General Specimen's removed: Bilateral fallopian tubes Drains: None Estimated Blood Loss (mL): < 50 cc Fluids Replaced: 700 cc Description of Procedure: Patient was taken to the operating room where general anesthesia was induced and found to be adequate. She was prepped and draped in the usual sterile fashion in dorsal lithotomy position using yellow fin stirrups. The bladder was drained with a straight catheterization. A weighed speculum was placed from below and the anterior lip of the cervix was grasped with a single tooth tenaculum. A uterine manipulator was placed from below. Gloves were then changed and attention was turned to the abdominal portion of the case. A 5mm infraumbilcal incision was made, and a 5mm trocar was placed under direct visualization. Once confirmed intraperitoneal, CO2 insufflation was initiated. Next a right lateral 5mm port was placed. Then a 5mm left lateral port was placed. The bowel was moved out of the pelvis noting the above. The left fallopian tube was elevated out of the pelvis and followed to the fimbriated end. The Ligasure device was used to cauterize and cut along the mesosalpinx to remove the tube. The same was done with the right fallopian tube. Both tubes were sent to pathology for review. The pelvis was noted to be hemostatic. Pictures were taken. The lateral ports were removed. The infraumbilical port was then removed after the abdomen was exsufflated. The skin was closed in a subcuticular fashion using 3-0 monocryl, and dermabond glue was placed. All instruments were removed from the vagina. Instrument counts were correct, and the patient was taken to the recovery room in stable condition. - Complications None - Admit VTE Documentation VTE Present on Admission: No VTE Mechan Device Prophylaxis: SCD's
[2018-12-18 09:58] LABS: Scan Indicated on CBC? Y/N NO
[2018-12-18 09:59] LABS: Internal QC Validated? YES +Cl - CLEAR BKGD; Pregnancy, Urine Negative Negative
[2018-12-18] MEDS: Bupivacaine Mpf 0.5% 30 ML VIAL (12:16)
[2018-12-18 12:31] VITALS: BP 113/76; BP 123/79; PULSE 78; RESP 16; TEMP 36.7; O2SAT 96
[2018-12-18 12:45] VITALS: BP 113/76; BP 123/81; PULSE 78; RESP 16; O2SAT 95
[2018-12-18 13:00] VITALS: BP 113/76; BP 124/85; PULSE 73; RESP 18; TEMP 36.3; O2SAT 95
[2018-12-18 14:13] VITALS: BP 113/76; BP 118/75; PULSE 68; RESP 16; TEMP 36.3; O2SAT 95
== END 2018-12-18 14:16 | disposition home or self-care (01) ==
LOC: SDC 09:21 → AC 09:23
PROVIDERS: Referring Provider Obstetrics & Gynecology; Visit Provider Obstetrics & Gynecology
PROC: (CPT 58661; principal; 2018-12-18 10:15)
DX: Z30.2 Encounter for sterilization (principal); F32.9 Major depressive disorder, single episode, unspecified; Z86.2 Personal history of diseases of the blood and blood-forming organs and certain disorders involving the immune mechanism; Z79.891 Long term (current) use of opiate analgesic; Z79.899 Other long term (current) drug therapy
CPT/HCPCS: 00840; 58661; 36415; 81025; 85027; 86850; 86900; 88302; J7120; J2405

== ENCOUNTER 2023-07-25 11:48 | Emergency (ER) | payer MEDICAID, SELFPAY ==
[2023-07-25 11:50] VITALS: BP 115/88; PULSE 94; RESP 14; TEMP 36.7; O2SAT 98; BMI 34.9
[2023-07-25 11:55] VITALS: BMI 34.9
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
--- NOTE | 2023-07-25 13:20 | CT_ITS ---
INDICATION: stuttering EXAMINATION: CT BRAIN - CT Head or Brain W/O Contrast Injection TECHNIQUE: Multiple axial images were obtained of the head without intravenous contrast. A radiation dose optimization technique was used for this scan. IV Contrast dosage and agent: None. RADIATION DOSAGE (If Supplied By Facility): CTDIvol = ( 44.99 ) mGy, DLP = ( 829.85 ) mGycm COMPARISON: No relevant prior comparison study available FINDINGS: BRAIN PARENCHYMA: No intra- or extra-axial hemorrhage. No evidence of acute infarct. No intracranial mass or mass effect. There is preservation of the freedman/white matter interface. Posterior fossa structures are unremarkable. CSF SPACES: Appropriate for age. No hydrocephalus. Basal cisterns are patent. CALVARIUM, SKULL BASE, PARANASAL SINUSES AND MASTOID AIR CELLS: Essentially clear No discrete lytic or blastic abnormalities. ORBITS: Both globes, extraocular muscles, optic nerves and retrobulbar fat appear unremarkable. ASPECTS Score for Acute Strokes: 10 CT/Brain/Head without Contrast IMPRESSION: Negative Brain CT without contrast. Electronically Signed: Abelino Fontanez MD at 13:42 EDT ,
[2023-07-25 13:22] LABS: Absolute Neutrophil Count 4.5 X10^3/uL (2.0-7.7); Basophil# 0.06 X10^3/uL; Basophil% 0.8 % (0-1); Eosinophil# 0.15 X10^3/uL; Eosinophils% 2.1 % (0-5); Hematocrit 34.9 % (37-47); Hemoglobin 12.1 g/dL (12.0-15.0); Lymphocyte % 29.6 % (19-41); Mean Corp Hgb Conc 34.7 g/dL (32-36); Mean Corpuscular Hgb 28.6 pg (27.0-32.0); Mean Corpuscular Volume 82.5 fL (81-99); Mean Platelet Vol. 8.7 fl (6.2-12.0); Monocyte# 0.32 X10^3/uL; Monocyte% 4.5 % (0-10); NRBC Flagged by Analyzer 0 % (0-5); Neutrophil # 4.45 X10^3/uL (2.7-7.7); Neutrophil % 62.9 % (47-70); Platelet Count 378 K/mm3 (150-450); RBC Distribution Width CV 12.5 % (11.6-14.6); RBC Distribution Width SD 37.4 fl (35.1-43.9); Red Blood Count 4.23 M/mm3 (4.2-5.4); White Blood Count 7.1 K/mm3 (4.4-11.0)
[2023-07-25 13:36] LABS: Anion Gap 7 (5-15); BUN 8 mg/dL (7-18); BUN/Creat Ratio 10.6 RATIO (10-20); Calcium,Total 9.4 mg/dL (8.5-10.1); Chloride 110 mmol/L (98-107); Creatinine, Serum 0.75 mg/dL (0.55-1.02); EST Glomerular Filtration Rate 98 mL/min (>60); Est Glom Filt Rate - Afr Amer 119 mL/min (>60); Glucose 96 mg/dL (74-106); Potassium 3.7 mmol/L (3.5-5.1); Sodium Level 141 mmol/L (136-145)
== END 2023-07-25 15:59 | disposition home or self-care (01) ==
PROVIDERS: Emergency Provider Emergency Medicine; Visit Provider Emergency Medicine
DX: F98.5 Adult onset fluency disorder (principal); G93.1 Anoxic brain damage, not elsewhere classified; F31.9 Bipolar disorder, unspecified; R11.2 Nausea with vomiting, unspecified; Z87.891 Personal history of nicotine dependence; Z87.898 Personal history of other specified conditions
CPT/HCPCS: 70450; 80048; 85025; 99283; A4216